=== PATIENT | female | born 2000 | race Caucasian/White ===

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

== ENCOUNTER 2018-02-26 15:16 | Inpatient (IN) | payer BC ==
[2018-02-26 16:42] VITALS: BMI 23.8
--- NOTE | 2018-02-26 21:07 | HP ---
COWS - Scale Resting Pulse: 0= [place] 80 or Below Sweatin=Flushed/Facial Moisture Restless Observation: 1= Difficult to Sit Still Pupil Size: 1= Pupils >than Normal Bone or Joint Aches: 4=Acute Joint/Muscle Pain Runny Nose/ Eye Tearin= None GI Upset > 30mins: 1= Stomach Cramp Tremor Observation: 2= Slight Tremor Visible Yawning Observation: 0= None Anxiety or Irritability: 4=Extreme Anxiety Goose Flesh Skin: 0=Smooth Skin COWS Score: [address] 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 Patient has been in previous detox and reports insignificant period of sobriety. She reports medical history of anemia,chlamydia, anxiety and depression. Denies suicide attempt and suicidal ideation at this time. Exam Limitations: No Limitations - Ebola screening Have you traveled outside of the country in the last 21 days: No Have you had contact with anyone from an Ebola affected area: No Have you been sick,other than usual withdrawal symptoms: No Do you have a fever: No - Review of Systems Constitutional: Chills, Malaise, Night Sweats, Changes in sleep EENT: reports: No Symptoms Reported Respiratory: reports: No Symptoms reported Cardiac: reports: No Symptoms Reported GI: reports: Nausea, Poor Appetite, Poor Fluid Intake, Abdominal cramping : reports: No Symptoms Reported Musculoskeletal: reports: Back Pain, Muscle Pain Integumentary: reports: Dryness Neuro: reports: Tingling, Tremors Endocrine: reports: No Symptoms Reported Hematology: reports: Anemia Psychiatric: reports: Orientated x3, Anxious, Depressed Other Systems: Reviewed and Negative Patient History - Patient Medical History Hx Anemia: Yes (Not on medication) Hx Asthma: No Hx Chronic Obstructive Pulmonary Disease (COPD): No Hx Cancer: No Hx Cardiac Disorders: No Hx Congestive Heart Failure: No Hx Hypertension: No Hx Hypercholesterolemia: No Hx Pacemaker: No HX Cerebrovascular Accident: No Hx Seizures: No Hx Dementia: No Hx Diabetes: No Hx Gastrointestinal Disorders: No Hx Liver Disease: No Hx Genitourinary Disorders: No Hx Sexually Transmitted Disorders: No Hx Renal Disease (ESRD): No Hx Thyroid Disease: No Hx Human Immunodeficiency Virus (HIV): No Hx Hepatitis C: No Hx Depression: Yes (Not on medication) Hx Suicide Attempt: No (Denies suicide attempt or suicidal ideation at this time ) Hx Bipolar Disorder: No Hx Schizophrenia: No Other Medical History: Anxiety - Not on medication - Patient Surgical History Past Surgical History: No Hx Neurologic Surgery: No Hx Cataract Extraction: No Hx Cardiac Surgery: No Hx Lung Surgery: No Hx Breast Surgery: No Hx Breast Biopsy: No Hx Abdominal Surgery: No Hx Appendectomy: No Hx Cholecystectomy: No Hx Genitourinary Surgery: No Hx Section: No Hx Orthopedic Surgery: No Hx Hysterectomy: No Anesthesia Reaction: No - PPD History Previous Implant?: Yes Documented Results: Negative w/proof Date: 01/05/17 Results: 0mm PPD to be Administered?: Yes - Reproductive History Patient is a Female of Child Bearing Age (11 -55 yrs old): Yes Last Menstrual Period: 06/13/17 LMP comment: On Norplant control injection Patient : No - Smoking Cessation Smoking history: Current every day smoker Have you smoked in the past 12 months: Yes Aproximately how many cigarettes per day: 10 Cigars Per Day: 0 Hx Chewing Tobacco Use: No Initiated information on smoking cessation: Yes 'Breaking Loose' booklet given: 02/26/18 - Substance & Tx. History Hx Alcohol Use: No Hx Substance Use: Yes Substance Use Type: Heroin Hx Substance Use Treatment: Yes ([facility]) - Substances Abused Heroin Route: Inhalation Frequency: Daily Amount used: 6 bags Age of first use: 15 Date of Last Use: 02/26/18 Family Disease History - Family Disease History Family Disease History: [place]: Grandparent (dementia), Respiratory: Sister (Asthma) , Other: Grandparent, Father (alive), Mother (alive and well) Admission Physical Exam BHS - Vital Signs Vital Signs: Vital Signs - 24 hr 02/26/18 16:41 Temperature 97.8 F Pulse Rate 78 Respiratory 18 Rate Blood Pressure 115/66 - Physical General Appearance: Yes: Moderate Distress HEENTM: Yes: EOMI, Normal ENT Inspection, Normal Voice, GINO Respiratory: Yes: Lungs Clear, Normal Breath Sounds, No Respiratory Distress Neck: Yes: Supple Breast: Yes: Breast Exam Deferred Cardiology: Yes: Regular Rhythm, Regular Rate, S1, S2 Abdominal: Yes: Normal Bowel Sounds, Soft Genitourinary: Yes: Within Normal Limits Back: Yes: Normal Inspection Musculoskeletal: Yes: Back pain, Muscle Pain Extremities: Yes: Tremors Neurological: Yes: Alert, Normal Mood/Affect Lymphatic: Yes: Within Normal Limits - Diagnostic (1) Dehydration Current Visit: Yes Status: Chronic (2) Opioid dependence with withdrawal Current Visit: Yes Status: Chronic (3) Anemia Current Visit: Yes Status: Chronic Qualifiers: Anemia type: unspecified type Qualified Code(s): D64.9 - Anemia, unspecified (4) Depression (emotion) Current Visit: Yes Status: Chronic Qualifiers: Depression Type: dysthymia Qualified Code(s): F34.1 - Dysthymic disorder (5) Nicotine dependence Current Visit: Yes Status: Chronic Qualifiers: Nicotine product type: cigarettes Substance use status: uncomplicated Qualified Code(s): F17.210 - Nicotine dependence, cigarettes, uncomplicated (6) Anxiety disorder Current Visit: Yes Status: Chronic Comment: Self reports. Cleared for Admission [facility] - Detox or Rehab [facility] Level of Care: Medically Managed Detox Regimen/Protocol: Methadone [facility] Breath Alcohol Content Breath Alcohol Content: 0 Urine Pregancy Test - Result Urine Test Results: Negative- NO Line Present Urine Drug Screen - Results Drug Screen Negative: No Urine Drug Screen Results: OPI-Opiates
[2018-02-26] MEDS ORDERED: MAGNESIUM CITRATE 300 ML BOTTLE PO PRN (21:14)
[2018-02-26] MEDS ORDERED: METHADONE HCL 10 MG TABLET (FOR DETOX USE ONLY) PO ONE ×2 (21:14→23:00)
[2018-02-26] MEDS ORDERED: IBUPROFEN 400 MG TABLET (FP) PO PRN (21:14)
[2018-02-26] MEDS ORDERED: LOPERAMIDE HCL 2 MG CAPSULE PO PRN (21:14)
[2018-02-26] MEDS ORDERED: P-EPHED 60MG/TRIPROLIDI 2.5MG TABLET PO PRN (21:14)
[2018-02-26] MEDS ORDERED: MAG HYDROX/AL HYDROX/SIMETH 30 ML UNIT-DOSE CUP PO PRN (21:14)
[2018-02-26] MEDS ORDERED: MENTHOL/PHENOL 1 EACH UD MM PRN (21:14)
[2018-02-26] MEDS ORDERED: NICOTINE POLACRILEX 2 MG GUM BC PRN (21:14)
[2018-02-26] MEDS ORDERED: guaiFENesin/D-METHORPHAN HB 10 ML UNIT-DOSE CUPS PO PRN (21:14)
[2018-02-26] MEDS ORDERED: MAGNESIUM HYDROX 2400MG/30ML ORAL SUSPENSION 30 ML CUP PO PRN (21:14)
[2018-02-26] MEDS ORDERED: ACETAMINOPHEN 325 MG TABLET (FP) PO PRN (21:18)
[2018-02-26] MEDS: diazePAM 5 MG TABLET PO PRN (22:00)
[2018-02-26] MEDS: THIAMINE HCL 100 MG TABLET (FP) PO SCH (22:00)
--- NOTE | 2018-02-27 09:22 | EKG ---
Test Reason : Blood Pressure : / mmHG Vent. Rate : 062 BPM Atrial Rate : 062 BPM P-R Int : 144 ms QRS Dur : 098 ms QT Int : 414 ms P-R-T Axes : 063 074 051 degrees QTc Int : 420 ms NORMAL SINUS RHYTHM NORMAL ECG WHEN COMPARED WITH ECG OF 10-DEC-2017 21:36, T WAVE INVERSION NO LONGER EVIDENT IN ANTERIOR LEADS Confirmed by ECHO JAMES, KARY ([id number]) on 02/27/2018 9:22:06 AM Referred By: Suni Morris Confirmed By:KARY DODGE MD
[2018-02-27] MEDS ORDERED: METHADONE HCL 10 MG TABLET (FOR DETOX USE ONLY) PO ONE (10:00)
[2018-02-27 10:15] LABS: HEMATOCRIT 35.4 % (32.4-45.2); HEMOGLOBIN 11.7 GM/dL (10.7-15.3); MCH 27.1 pg (25.7-33.7); MCHC 33.1 g/dl (32.0-36.0); MEAN CELL VOLUME 81.9 fl (80-96); PLATELET COUNT 311 K/MM3 (134-434); RBC 4.32 M/mm3 (3.60-5.2); RDW 13.8 % (11.6-15.6); WHITE BLOOD COUNT 7.4 K/mm3 (4.0-10.0)
[2018-02-27] MEDS: PRENATAL VITAMINS W/ FOLIC ACID TABLET (FP) PO SCH (10:33)
[2018-02-27] MEDS: NICOTINE 14 MG/24 HOURS TOPICAL PATCH TD SCH (10:34)
[2018-02-27 10:37] LABS: CHLORIDE 107 mmol/L (98-107); POTASSIUM 4.2 mmol/L (3.5-5.1); SODIUM 142 mmol/L (136-145)
[2018-02-27 11:02] LABS: ALBUMIN 3.1 g/dl (3.4-5.0); ALK PHOS 93 U/L (45-117); ANION GAP 7 (8-16); BILIRUBIN,TOTAL 0.9 mg/dL (0.2-1.0); BLOOD UREA NITROGEN 13 mg/dL (7-18); CALCIUM 8.7 mg/dL (8.5-10.1); CO2 28 mmol/L (21-32); CREATININE 0.7 mg/dL (0.55-1.02); GLUCOSE,RANDOM 79 mg/dL (74-106); SGOT/AST 11 U/L (15-37); SGPT/ALT 12 U/L (12-78); TOT PROT 6.4 g/dl (6.4-8.2)
--- NOTE | 2018-02-27 15:50 | PN ---
S COWS - Scale Resting Pulse: 1= [place] 81-100 Sweatin= Chills/Flushing Restless Observation: 3= Extraneous Movement Pupil Size: 1= Pupils >than Normal Bone or Joint Aches: 2= Severe Diffuse Aches Runny Nose/ Eye Tearin= Nasal Congestion GI Upset > 30mins: 2= Nausea/Diarrhea Tremor Observation of Outstretched Hands: 2= Slight Tremor Visible Yawning Observation: 1= 1-2x During Session Anxiety or Irritability: 2=Irritable/Anxious Goose Flesh Skin: 0=Smooth Skin COWS Score: 16 S Progress Note (SOAP) Subjective: ALERT,IRRITABLE,ANXIOUS,INTERRUPTED SLEEP,TREMOR,PAIN IN THE BODY AND BACK Objective: 02/27/18 15:47 Vital Signs Temperature 98.6 F 02/27/18 14:00 Pulse Rate 84 02/27/18 14:00 Respiratory Rate 18 02/27/18 14:00 Blood Pressure 98/58 02/27/18 14:00 O2 Sat by Pulse Oximetry (%) EKG NORMAL SINUS RHYTHM,NORMAL ECG PROLONG QT 414/420 NO CHEST PAIN,NO SOB,NO DIZZINESS Laboratory Last Values WBC 7.4 K/mm3 (4.0-10.0) 02/27/18 08:00 RBC 4.32 M/mm3 (3.60-5.2) 02/27/18 08:00 Hgb 11.7 GM/dL (10.7-15.3) 02/27/18 08:00 Hct 35.4 % (32.4-45.2) 02/27/18 08:00 MCV 81.9 fl (80-96) 02/27/18 08:00 MCH 27.1 pg (25.7-33.7) 02/27/18 08:00 MCHC 33.1 g/dl (32.0-36.0) 02/27/18 08:00 RDW 13.8 % (11.6-15.6) 02/27/18 08:00 Plt Count 311 K/MM3 (134-434) 02/27/18 08:00 MPV 8.0 fl (7.5-11.1) 02/27/18 08:00 Sodium 142 mmol/L (136-145) 02/27/18 08:00 Potassium 4.2 mmol/L (3.5-5.1) 02/27/18 08:00 Chloride 107 mmol/L (98-107) 02/27/18 08:00 Carbon Dioxide 28 mmol/L (21-32) 02/27/18 08:00 Anion Gap 7 (8-16) L 02/27/18 08:00 BUN 13 mg/dL (7-18) 02/27/18 08:00 Creatinine 0.7 mg/dL (0.55-1.02) 02/27/18 08:00 Creat Clearance w eGFR > 60 (>60) 02/27/18 08:00 Random Glucose 79 mg/dL (74-106) 02/27/18 08:00 Calcium 8.7 mg/dL (8.5-10.1) 02/27/18 08:00 Total Bilirubin 0.9 mg/dL (0.2-1.0) 02/27/18 08:00 AST 11 U/L (15-37) L 02/27/18 08:00 ALT 12 U/L (12-78) 02/27/18 08:00 Alkaline Phosphatase 93 U/L (45-117) 02/27/18 08:00 Total Protein 6.4 g/dl (6.4-8.2) 02/27/18 08:00 Albumin 3.1 g/dl (3.4-5.0) L 02/27/18 08:00 RPR Titer Nonreactive (NONREACTIVE) 02/27/18 08:00 HIV 1&2 Antibody Screen Negative 02/27/18 08:00 HIV P24 Antigen Negative 02/27/18 08:00 Assessment: 02/27/18 15:49 WITHDRAWAL SYMPTOM Plan: CONTINUE DETOX
[2018-02-27 16:56] LABS: URINE APPEARANCE CLEAR; URINE BILIRUBIN NEGATIVE (<2.0 mg/dL); URINE COLOR YELLOW; URINE GLUCOSE (UA) NEGATIVE (NEGATIVE); URINE KETONE NEGATIVE (NEGATIVE); URINE LEUK ESTERASE TRACE (NEGATIVE); URINE NITRITE NEGATIVE (NEGATIVE); URINE PROTEIN NEGATIVE (NEGATIVE)
[2018-02-27 17:03] LABS: EPI CELLS RARE /HPF (FEW); URINE BACTERIA RARE /hpf (NONE SEEN); URINE MUCUS RARE
--- NOTE | 2018-02-27 17:13 | CONSULT ---
[facility] Psychiatric Consult - Data Date of interview: 02/27/18 Admission source: [facility] Identifying data: Readmission to [facility] for this 17 y/o AA female seeking detox treatment on for heroin dependence.Patient is single without dependents,domiciled (lives with relatives),unemployed and assisted financially by family members. Substance Abuse History: Confirmed by patient in my interview.Details in current [facility] report : Smoking history: Current every day smoker. Have you smoked in the past 12 months: Yes. Aproximately how many cigarettes per day: 10. Cigars Per Day: 0. Hx Chewing Tobacco Use: No. Initiated information on smoking cessation: Yes. 'Breaking Loose' booklet given: 02/26/18. - Substance & Tx. History. Hx Alcohol Use: No. Hx Substance Use: Yes. Substance Use Type : Heroin. Hx Substance Use Treatment: Yes ([facility]). - Substances Abused. Heroin. Route: Inhalation. Frequency: Daily. Amount used: 6 bags. Age of first use: 15. Date of Last Use: 02/26/18 Medical History: Patient endorses good general health.Noted history of anemia. Psychiatric History: Patient shows a proclivity toward misleading clinicians with different versions of personal history.As evidence : to this literary writer, Ms Acosta denies any history of psychiatric hospitalizations ; she admits only to receiving outpatient psychiatric services at an unnamed clinic in the [place].Review of previous records at [facility] uncovers prior report of two psychiatric hospitalizations ([facility] + [facility]).As recently as 2017 (soldering machine operator Maira's note of 12/11/17).Patient is reportedly managed on a regimen of buspar 15 mg po bid + seroquel 100 mhg/ hs.Adherence remains questionable.Patient denies history of suicide attempts. Physical/Sexual Abuse/Trauma History: Not discused.Patient declined. Additional Comment: Urine Drug Screen Results: OPI-Opiates.Noted. Mental Status Exam - Mental Status Exam Alert and Oriented to: Time, Place, Person Cognitive Function: Good Patient Appearance: Well Groomed (appears stated age) Mood: Withdrawn, Apprehensive Affect: Mood Congruent Patient Behavior: Fatigued, Appropriate, Cooperative Speech Pattern: Clear, Appropriate Voice Loudness: Normal Thought Process: Intact, Goal Oriented Thought Disorder: Not Present Hallucinations: Denies Suicidal Ideation: Denies Homicidal Ideation: Denies Insight/Judgement: Poor Sleep: Poorly, Difficulty falling asleep Appetite: Good Muscle strength/Tone: Normal Gait/Station: Normal Psychiatric Findings - Problem List ([place] 1, 2,3) (1) Opioid dependence with withdrawal Current Visit: Yes Status: Chronic (2) Nicotine dependence Current Visit: Yes Status: Chronic Qualifiers: Nicotine product type: cigarettes Substance use status: uncomplicated Qualified Code(s): F17.210 - Nicotine dependence, cigarettes, uncomplicated (3) Drug-induced mood disorder Current Visit: Yes Status: Acute (4) Anxiety disorder Current Visit: Yes Status: Chronic (5) Insomnia Current Visit: Yes Status: Acute - Initial Treatment Plan Initial Treatment Plan: Records revisited.Psychoeducation.Sleep hygiene.Detoxification in effect.Medications resumed : buspar 10 mg po bid + seroquel 100 mg po hs.Side effects/benefits of both medications are discussed with the patient.Made aware, in particular, of the risk of metabolic syndrome, oversedation + falls and hypotension.Ms Acosta endorses the two drugs as well toterated and effective.Consent (verbal) given.Observation.
[2018-02-27] MEDS: diazePAM 5 MG TABLET PO PRN (17:17)
[2018-02-27] MEDS: MELATONIN 5 MG TABLETS PO PRN (22:15)
[2018-02-27] MEDS: THIAMINE HCL 100 MG TABLET (FP) PO SCH (22:15)
[2018-02-27] MEDS: QUEtiapine FUMARATE 100 MG TABLET (FP) PO SCH (22:15)
[2018-02-27] MEDS: busPIRone HCL 10 MG TABLET (FP) PO SCH (22:15)
[2018-02-28] MEDS ORDERED: METHADONE HCL 5 MG TABLET (FOR DETOX USE ONLY) PO ONE (10:00)
[2018-02-28] MEDS: PRENATAL VITAMINS W/ FOLIC ACID TABLET (FP) PO SCH (10:18)
[2018-02-28] MEDS: busPIRone HCL 10 MG TABLET (FP) PO SCH ×2 (10:18→22:18)
[2018-02-28] MEDS: diazePAM 5 MG TABLET PO PRN ×2 (10:19→22:19)
[2018-02-28] MEDS: NICOTINE 14 MG/24 HOURS TOPICAL PATCH TD SCH (10:20)
--- NOTE | 2018-02-28 16:53 | PN ---
[facility] COWS - Scale Resting Pulse: 0= IN 80 or Below Sweatin= Chills/Flushing Restless Observation: 3= Extraneous Movement Pupil Size: 1= Pupils >than Normal Bone or Joint Aches: 2= Severe Diffuse Aches Runny Nose/ Eye Tearin= Runny Nose/Eyes GI Upset > 30mins: 2= Nausea/Diarrhea Tremor Observation of Outstretched Hands: 2= Slight Tremor Visible Yawning Observation: 1= 1-2x During Session Anxiety or Irritability: 2=Irritable/Anxious Goose Flesh Skin: 0=Smooth Skin COWS Score: 16 S Progress Note (SOAP) Subjective: Chills, muscle spasm, interrupted sleep Objective: 02/28/18 16:51 Last Vital Signs Temp Pulse Resp BP Pulse Ox 98.1 F 69 16 100/59 02/28/18 14:00 02/28/18 14:00 02/28/18 14:00 02/28/18 14:00 Laboratory Tests 02/27/18 02/27/18 02/27/18 08:00 08:00 08:00 WBC 7.4 RBC 4.32 Hgb 11.7 Hct 35.4 MCV 81.9 MCH 27.1 MCHC 33.1 RDW 13.8 Plt Count 311 MPV 8.0 Sodium 142 Potassium 4.2 Chloride 107 Carbon Dioxide 28 Anion Gap 7 L BUN 13 Creatinine 0.7 Creat Clearance w eGFR > 60 Random Glucose 79 Calcium 8.7 Total Bilirubin 0.9 AST 11 L ALT 12 Alkaline Phosphatase 93 Total Protein 6.4 Albumin 3.1 L Urine Color Urine Appearance Urine pH Ur Specific [place] Urine Protein Urine Glucose (UA) Urine Ketones Urine Blood Urine Nitrite Urine Bilirubin Urine Urobilinogen Ur Leukocyte Esterase Urine WBC (Auto) Urine RBC (Auto) Ur Epithelial Cells Urine Bacteria Urine Mucus RPR Titer HIV 1&2 Antibody Screen Negative HIV P24 Antigen Negative 02/27/18 02/27/18 08:00 09:15 WBC RBC Hgb Hct MCV MCH MCHC RDW Plt Count MPV Sodium Potassium Chloride Carbon Dioxide Anion Gap BUN Creatinine Creat Clearance w eGFR Random Glucose Calcium Total Bilirubin AST ALT Alkaline Phosphatase Total Protein Albumin Urine Color Yellow Urine Appearance Clear Urine pH 8.0 D Ur Specific [place] 1.025 Urine Protein Negative Urine Glucose (UA) Negative Urine Ketones Negative Urine Blood Negative Urine Nitrite Negative Urine Bilirubin Negative Urine Urobilinogen 2.0 H Ur Leukocyte Esterase Trace Urine WBC (Auto) 2 Urine RBC (Auto) <1 Ur Epithelial Cells Rare Urine Bacteria Rare Urine Mucus Rare RPR Titer Nonreactive HIV 1&2 Antibody Screen HIV P24 Antigen Labs reviewed Assessment: 02/28/18 16:52 Withdrawal symptoms Plan: Continue detox Encourage PO hydration (water)
[2018-02-28] MEDS: QUEtiapine FUMARATE 100 MG TABLET (FP) PO SCH (22:18)
[2018-02-28] MEDS: THIAMINE HCL 100 MG TABLET (FP) PO SCH (22:18)
[2018-02-28] MEDS: MELATONIN 5 MG TABLETS PO PRN (22:20)
[2018-03-01] MEDS ORDERED: METHADONE HCL 5 MG TABLET (FOR DETOX USE ONLY) PO ONE (10:00)
[2018-03-01] MEDS: PRENATAL VITAMINS W/ FOLIC ACID TABLET (FP) PO SCH (11:05)
[2018-03-01] MEDS: busPIRone HCL 10 MG TABLET (FP) PO SCH ×2 (11:05→22:16)
[2018-03-01] MEDS: NICOTINE 14 MG/24 HOURS TOPICAL PATCH TD SCH (11:06)
[2018-03-01] MEDS: diazePAM 5 MG TABLET PO PRN ×2 (11:06→18:54)
--- NOTE | 2018-03-01 12:16 | PN ---
[facility] Progress Note (SOAP) Subjective: joint pain body ache sweat tremor trouble sleep at night Objective: 03/01/18 12:15 Vital Signs Temperature 98.4 F 03/01/18 10:22 Pulse Rate 105 H 03/01/18 10:22 Respiratory Rate 18 03/01/18 10:22 Blood Pressure 102/58 03/01/18 10:22 O2 Sat by Pulse Oximetry (%) Laboratory Last Values WBC 7.4 K/mm3 (4.0-10.0) 02/27/18 08:00 RBC 4.32 M/mm3 (3.60-5.2) 02/27/18 08:00 Hgb 11.7 GM/dL (10.7-15.3) 02/27/18 08:00 Hct 35.4 % (32.4-45.2) 02/27/18 08:00 MCV 81.9 fl (80-96) 02/27/18 08:00 MCH 27.1 pg (25.7-33.7) 02/27/18 08:00 MCHC 33.1 g/dl (32.0-36.0) 02/27/18 08:00 RDW 13.8 % (11.6-15.6) 02/27/18 08:00 Plt Count 311 K/MM3 (134-434) 02/27/18 08:00 MPV 8.0 fl (7.5-11.1) 02/27/18 08:00 Sodium 142 mmol/L (136-145) 02/27/18 08:00 Potassium 4.2 mmol/L (3.5-5.1) 02/27/18 08:00 Chloride 107 mmol/L (98-107) 02/27/18 08:00 Carbon Dioxide 28 mmol/L (21-32) 02/27/18 08:00 Anion Gap 7 (8-16) L 02/27/18 08:00 BUN 13 mg/dL (7-18) 02/27/18 08:00 Creatinine 0.7 mg/dL (0.55-1.02) 02/27/18 08:00 Creat Clearance w eGFR > 60 (>60) 02/27/18 08:00 Random Glucose 79 mg/dL (74-106) 02/27/18 08:00 Calcium 8.7 mg/dL (8.5-10.1) 02/27/18 08:00 Total Bilirubin 0.9 mg/dL (0.2-1.0) 02/27/18 08:00 AST 11 U/L (15-37) L 02/27/18 08:00 ALT 12 U/L (12-78) 02/27/18 08:00 Alkaline Phosphatase 93 U/L (45-117) 02/27/18 08:00 Total Protein 6.4 g/dl (6.4-8.2) 02/27/18 08:00 Albumin 3.1 g/dl (3.4-5.0) L 02/27/18 08:00 Urine Color Yellow 02/27/18 09:15 Urine Appearance Clear 02/27/18 09:15 Urine pH 8.0 (5.0-8.0) D 02/27/18 09:15 Ur Specific [place] 1.025 (1.001-1.035) 02/27/18 09:15 Urine Protein Negative (NEGATIVE) 02/27/18 09:15 Urine Glucose (UA) Negative (NEGATIVE) 02/27/18 09:15 Urine Ketones Negative (NEGATIVE) 02/27/18 09:15 Urine Blood Negative (NEGATIVE) 02/27/18 09:15 Urine Nitrite Negative (NEGATIVE) 02/27/18 09:15 Urine Bilirubin Negative (<2.0 mg/dL) 02/27/18 09:15 Urine Urobilinogen 2.0 mg/dL (0.2-1.0) H 02/27/18 09:15 Ur Leukocyte Esterase Trace (NEGATIVE) 02/27/18 09:15 Urine WBC (Auto) 2 /hpf (3-5) 02/27/18 09:15 Urine RBC (Auto) <1 /hpf (0-3) 02/27/18 09:15 Ur Epithelial Cells Rare /HPF (FEW) 02/27/18 09:15 Urine Bacteria Rare /hpf (NONE SEEN) 02/27/18 09:15 Urine Mucus Rare 02/27/18 09:15 RPR Titer Nonreactive (NONREACTIVE) 02/27/18 08:00 HIV 1&2 Antibody Screen Negative 02/27/18 08:00 HIV P24 Antigen Negative 02/27/18 08:00 lab noted Assessment: 03/01/18 12:16 withdrawal sx Plan: continue detox
--- NOTE | 2018-03-01 15:54 | PN ---
Psychiatric Progress Note Vital Signs: Vital Signs Period Temp Pulse Resp BP Sys/[place] Pulse Ox Last 24 Hr 97 F-98.4 F 58-111 16-18 98-111/57-72 Date of Session: 03/01/18 Chief Complaint:: Insomnia HPI: Patient reports insomnia, reports taking Ambien 10mg po qhs prior to admission Current Medications: Active Medications Generic Name Dose Route Start Last Admin Trade Name Freq PRN Reason Stop Dose Admin Acetaminophen 650 mg 02/26/18 21:18 Tylenol - PO Q4H PRN FEVER Al Hydroxide/Mg Hydroxide 30 ml 02/26/18 21:14 Mylanta Oral Suspension - PO Q6H PRN DYSPEPSIA Buspirone HCl 10 mg 02/27/18 22:00 03/01/18 11:05 Buspar - PO 10 mg BID HOLLY Administration Cyclobenzaprine HCl 10 mg 02/28/18 11:22 Flexeril - PO TID PRN MUSCLE SPASMS Diazepam 10 mg 02/26/18 21:14 03/01/18 11:06 Valium - PO 03/01/18 21:13 10 mg Q4H PRN Administration WITHDRAWAL(CONT SUBST) Eucalyptus/Menthol/Phenol/Sorbitol 1 each 02/26/18 21:14 Cepastat Lozenge - MM Q4H PRN SORE THROAT Guaifenesin 10 ml 02/26/18 21:14 Robitussin Dm - PO Q6H PRN COUGH Ibuprofen 400 mg 02/26/18 21:14 Motrin - PO Q6H PRN PAIN LEVEL 4-6 Loperamide HCl 4 mg 02/26/18 21:14 Imodium - PO Q6H PRN DIARRHEA Magnesium Citrate 300 ml 02/26/18 21:14 Citroma - PO Q48H PRN CONSTIPATION Magnesium Hydroxide 30 ml 02/26/18 21:14 Milk Of Magnesia - PO DAILY PRN CONSTIPATION Melatonin 5 mg 02/26/18 22:00 02/28/18 22:20 Melatonin PO 5 mg HS PRN Administration INSOMNIA Methadone HCl 5 mg 03/03/18 06:00 Dolophine - PO 03/03/18 06:01 ONCE@0600 ONE Methadone HCl 10 mg 03/02/18 10:00 Dolophine - PO 03/02/18 10:01 ONCE ONE Nicotine 14 mg 02/27/18 10:00 03/01/18 11:06 Nicoderm Patch - TD Not Given DAILY HOLLY Nicotine Polacrilex 2 mg 02/26/18 21:14 Nicorette Gum - BC Q2H PRN NICOTINE REPLACEMENT RX Multivit/Folic Acid/Iron 1 tab 02/27/18 10:00 03/01/18 11:05 Vitamins (Sjr) - PO 1 tab DAILY HOLLY Administration Pseudoephedrine/Triprolidine 1 combo 02/26/18 21:14 Actifed - PO TID PRN NASAL CONGESTION Quetiapine Fumarate 100 mg 02/27/18 22:00 02/28/18 22:18 Seroquel - PO 100 mg HS HOLLY Administration Thiamine HCl 100 mg 02/26/18 22:00 02/28/18 22:18 Vitamin B1 - PO 100 mg HS HOLLY Administration Provider note:: Ambien 10mg po qgs order done Mental Status Exam - Mental Status Exam Alert and Oriented to: Person Cognitive Function: Fair Patient Appearance: Well Groomed Mood: Apprehensive Affect: Mood Congruent Patient Behavior: Cooperative Speech Pattern: Appropriate Voice Loudness: Normal Thought Process: Goal Oriented Thought Disorder: Being Controlled Hallucinations: Denies Suicidal Ideation: Denies Homicidal Ideation: Denies Insight/Judgement: Fair Sleep: Difficulty falling asleep Appetite: Fair Muscle strength/Tone: Normal Gait/Station: Normal Additional Comments: Ambien 10mg po qhs Psychiatric Treatment Plan - Problem List (1) Drug-induced mood disorder Current Visit: Yes (2) Opioid dependence with withdrawal Current Visit: Yes (3) Anxiety disorder Current Visit: Yes (4) Nicotine dependence Current Visit: Yes Qualifiers: Nicotine product type: cigarettes Substance use status: uncomplicated Qualified Code(s): F17.210 - Nicotine dependence, cigarettes, uncomplicated (5) Cannabis dependence Current Visit: No (6) Drug-induced mood disorder Current Visit: No (7) Drug-induced mood disorder Current Visit: No (8) Opioid dependence, uncomplicated Current Visit: No (9) Sedative, hypnotic or anxiolytic dependence, uncomplicated Current Visit: No (10) Substance-induced sleep disorder Current Visit: No (11) Substance-induced sleep disorder Current Visit: No (12) Alcohol abuse Current Visit: No (13) Opiate abuse, episodic Current Visit: No (14) Substance-induced anxiety disorder Current Visit: No Initial treatment plan: Ambien 10mg po qhs
[2018-03-01] MEDS: QUEtiapine FUMARATE 100 MG TABLET (FP) PO SCH (22:16)
[2018-03-01] MEDS: CYCLOBENZAPRINE HCL 10 MG TABLET (FP) PO PRN (22:16)
[2018-03-01] MEDS: THIAMINE HCL 100 MG TABLET (FP) PO SCH (22:16)
[2018-03-01] MEDS: ZOLPIDEM TARTRATE 5 MG TABLET PO PRN (22:19)
[2018-03-02] MEDS ORDERED: METHADONE HCL 10 MG TABLET (FOR DETOX USE ONLY) PO ONE (10:00)
[2018-03-02] MEDS: busPIRone HCL 10 MG TABLET (FP) PO SCH ×2 (10:24→22:08)
[2018-03-02] MEDS: PRENATAL VITAMINS W/ FOLIC ACID TABLET (FP) PO SCH (10:25)
[2018-03-02] MEDS: NICOTINE 14 MG/24 HOURS TOPICAL PATCH TD SCH (10:25)
--- NOTE | 2018-03-02 12:11 | PN ---
S Progress Note (SOAP) Subjective: feeling better less sweat no tremor denies pain tolerated food and fluid well Objective: 03/02/18 12:10 Vital Signs Temperature 98.1 F 03/02/18 09:01 Pulse Rate 91 H 03/02/18 09:01 Respiratory Rate 18 03/02/18 09:01 Blood Pressure 110/54 03/02/18 09:01 O2 Sat by Pulse Oximetry (%) Laboratory Last Values WBC 7.4 K/mm3 (4.0-10.0) 02/27/18 08:00 RBC 4.32 M/mm3 (3.60-5.2) 02/27/18 08:00 Hgb 11.7 GM/dL (10.7-15.3) 02/27/18 08:00 Hct 35.4 % (32.4-45.2) 02/27/18 08:00 MCV 81.9 fl (80-96) 02/27/18 08:00 MCH 27.1 pg (25.7-33.7) 02/27/18 08:00 MCHC 33.1 g/dl (32.0-36.0) 02/27/18 08:00 RDW 13.8 % (11.6-15.6) 02/27/18 08:00 Plt Count 311 K/MM3 (134-434) 02/27/18 08:00 MPV 8.0 fl (7.5-11.1) 02/27/18 08:00 Sodium 142 mmol/L (136-145) 02/27/18 08:00 Potassium 4.2 mmol/L (3.5-5.1) 02/27/18 08:00 Chloride 107 mmol/L (98-107) 02/27/18 08:00 Carbon Dioxide 28 mmol/L (21-32) 02/27/18 08:00 Anion Gap 7 (8-16) L 02/27/18 08:00 BUN 13 mg/dL (7-18) 02/27/18 08:00 Creatinine 0.7 mg/dL (0.55-1.02) 02/27/18 08:00 Creat Clearance w eGFR > 60 (>60) 02/27/18 08:00 Random Glucose 79 mg/dL (74-106) 02/27/18 08:00 Calcium 8.7 mg/dL (8.5-10.1) 02/27/18 08:00 Total Bilirubin 0.9 mg/dL (0.2-1.0) 02/27/18 08:00 AST 11 U/L (15-37) L 02/27/18 08:00 ALT 12 U/L (12-78) 02/27/18 08:00 Alkaline Phosphatase 93 U/L (45-117) 02/27/18 08:00 Total Protein 6.4 g/dl (6.4-8.2) 02/27/18 08:00 Albumin 3.1 g/dl (3.4-5.0) L 02/27/18 08:00 Urine Color Yellow 02/27/18 09:15 Urine Appearance Clear 02/27/18 09:15 Urine pH 8.0 (5.0-8.0) D 02/27/18 09:15 Ur Specific [place] 1.025 (1.001-1.035) 02/27/18 09:15 Urine Protein Negative (NEGATIVE) 02/27/18 09:15 Urine Glucose (UA) Negative (NEGATIVE) 02/27/18 09:15 Urine Ketones Negative (NEGATIVE) 02/27/18 09:15 Urine Blood Negative (NEGATIVE) 02/27/18 09:15 Urine Nitrite Negative (NEGATIVE) 02/27/18 09:15 Urine Bilirubin Negative (<2.0 mg/dL) 02/27/18 09:15 Urine Urobilinogen 2.0 mg/dL (0.2-1.0) H 02/27/18 09:15 Ur Leukocyte Esterase Trace (NEGATIVE) 02/27/18 09:15 Urine WBC (Auto) 2 /hpf (3-5) 02/27/18 09:15 Urine RBC (Auto) <1 /hpf (0-3) 02/27/18 09:15 Ur Epithelial Cells Rare /HPF (FEW) 02/27/18 09:15 Urine Bacteria Rare /hpf (NONE SEEN) 02/27/18 09:15 Urine Mucus Rare 02/27/18 09:15 RPR Titer Nonreactive (NONREACTIVE) 02/27/18 08:00 HIV 1&2 Antibody Screen Negative 02/27/18 08:00 HIV P24 Antigen Negative 02/27/18 08:00 lab noted Assessment: 03/02/18 12:11 mild withdrawal sx Plan: medically supervised detox
[2018-03-02] MEDS: QUEtiapine FUMARATE 100 MG TABLET (FP) PO SCH (22:08)
[2018-03-02] MEDS: CYCLOBENZAPRINE HCL 10 MG TABLET (FP) PO PRN (22:08)
[2018-03-02] MEDS: ZOLPIDEM TARTRATE 5 MG TABLET PO PRN (22:08)
[2018-03-02] MEDS: THIAMINE HCL 100 MG TABLET (FP) PO SCH (22:08)
[2018-03-03] MEDS ORDERED: METHADONE HCL 5 MG TABLET (FOR DETOX USE ONLY) PO ONE (06:00)
[2018-03-03 06:35] VITALS: BP 109/60; PULSE 97; TEMP 98.6
--- NOTE | 2018-03-03 08:46 | DS ---
[facility] Detox Discharge Summary Admission Date: 02/26/18 Discharge Date: 03/03/18 - History Present History: Opioid Dependence Additional Comments: 17 years old female admitted on 02/26/18 for opioid withdrawal sx completed detox regimen tolerated well denies opioid withdrawal sx alert oriented x 3 no acute distress agrees urgent care community clinic for mental and physical and addiction issues patient determines to maintain sober - Physical Exam Results Vital Signs: Vital Signs Temperature 98.6 F 03/03/18 06:00 Pulse Rate 97 H 03/03/18 06:00 Respiratory Rate 16 03/03/18 06:00 Blood Pressure 109/60 03/03/18 06:00 O2 Sat by Pulse Oximetry (%) Pertinent Admission Physical Exam Findings: withdrawal sx Vital Signs Temperature 98.6 F 03/03/18 06:00 Pulse Rate 97 H 03/03/18 06:00 Respiratory Rate 16 03/03/18 06:00 Blood Pressure 109/60 03/03/18 06:00 O2 Sat by Pulse Oximetry (%) Laboratory Last Values WBC 7.4 K/mm3 (4.0-10.0) 02/27/18 08:00 RBC 4.32 M/mm3 (3.60-5.2) 02/27/18 08:00 Hgb 11.7 GM/dL (10.7-15.3) 02/27/18 08:00 Hct 35.4 % (32.4-45.2) 02/27/18 08:00 MCV 81.9 fl (80-96) 02/27/18 08:00 MCH 27.1 pg (25.7-33.7) 02/27/18 08:00 MCHC 33.1 g/dl (32.0-36.0) 02/27/18 08:00 RDW 13.8 % (11.6-15.6) 02/27/18 08:00 Plt Count 311 K/MM3 (134-434) 02/27/18 08:00 MPV 8.0 fl (7.5-11.1) 02/27/18 08:00 Sodium 142 mmol/L (136-145) 02/27/18 08:00 Potassium 4.2 mmol/L (3.5-5.1) 02/27/18 08:00 Chloride 107 mmol/L (98-107) 02/27/18 08:00 Carbon Dioxide 28 mmol/L (21-32) 02/27/18 08:00 Anion Gap 7 (8-16) L 02/27/18 08:00 BUN 13 mg/dL (7-18) 02/27/18 08:00 Creatinine 0.7 mg/dL (0.55-1.02) 02/27/18 08:00 Creat Clearance w eGFR > 60 (>60) 02/27/18 08:00 Random Glucose 79 mg/dL (74-106) 02/27/18 08:00 Calcium 8.7 mg/dL (8.5-10.1) 02/27/18 08:00 Total Bilirubin 0.9 mg/dL (0.2-1.0) 02/27/18 08:00 AST 11 U/L (15-37) L 02/27/18 08:00 ALT 12 U/L (12-78) 02/27/18 08:00 Alkaline Phosphatase 93 U/L (45-117) 02/27/18 08:00 Total Protein 6.4 g/dl (6.4-8.2) 02/27/18 08:00 Albumin 3.1 g/dl (3.4-5.0) L 02/27/18 08:00 Urine Color Yellow 02/27/18 09:15 Urine Appearance Clear 02/27/18 09:15 Urine pH 8.0 (5.0-8.0) D 02/27/18 09:15 Ur Specific [place] 1.025 (1.001-1.035) 02/27/18 09:15 Urine Protein Negative (NEGATIVE) 02/27/18 09:15 Urine Glucose (UA) Negative (NEGATIVE) 02/27/18 09:15 Urine Ketones Negative (NEGATIVE) 02/27/18 09:15 Urine Blood Negative (NEGATIVE) 02/27/18 09:15 Urine Nitrite Negative (NEGATIVE) 02/27/18 09:15 Urine Bilirubin Negative (<2.0 mg/dL) 02/27/18 09:15 Urine Urobilinogen 2.0 mg/dL (0.2-1.0) H 02/27/18 09:15 Ur Leukocyte Esterase Trace (NEGATIVE) 02/27/18 09:15 Urine WBC (Auto) 2 /hpf (3-5) 02/27/18 09:15 Urine RBC (Auto) <1 /hpf (0-3) 02/27/18 09:15 Ur Epithelial Cells Rare /HPF (FEW) 02/27/18 09:15 Urine Bacteria Rare /hpf (NONE SEEN) 02/27/18 09:15 Urine Mucus Rare 02/27/18 09:15 RPR Titer Nonreactive (NONREACTIVE) 02/27/18 08:00 HIV 1&2 Antibody Screen Negative 02/27/18 08:00 HIV P24 Antigen Negative 02/27/18 08:00 lab noted - Treatment Hospital Course: Detox Protocol Followed, Detoxed Safely, Responded well, Discharged Condition Good, Rehab Referral Accepted Patient has Accepted a Rehab Referral to: urgent care community clinic - Medication Discharge Medications: Ambulatory Orders Eszopiclone [Lunesta -] 10 mg PO HS 01/03/17 Zolpidem Tartrate [Ambien] 10 mg PO PRN PRN #14 tablet MDD 10 09/09/17 Buspirone HCl [Buspar -] 15 mg PO BID 12/10/17 Buspirone HCl [Buspar -] 15 mg PO BID #60 tablet 12/15/17 Quetiapine Fumarate [Seroquel] 100 mg PO HS #30 tablet 03/01/18 - Diagnosis (1) Opioid dependence with withdrawal Current Visit: Yes Status: Acute (2) Nicotine dependence Current Visit: Yes Status: Acute Qualifiers: Nicotine product type: cigarettes Substance use status: in withdrawal Qualified Code(s): F17.213 - Nicotine dependence, cigarettes, with withdrawal - AMA Did Patient Leave Against Medical Advice: No
== END 2018-03-03 09:03 | disposition home or self-care (01) | DRG 897 ==
LOC: YASAS 15:16 → Y6N 19:38
PROVIDERS: ADMIT Surgery; ATTEND Surgery
PROC: HZ2ZZZZ Detoxification Services for Substance Abuse Treatment (ICD-10-PCS; principal; 2018-02-26)
DX: F11.23 Opioid dependence with withdrawal (principal); F19.282 Other psychoactive substance dependence with psychoactive substance-induced sleep disorder; F19.280 Other psychoactive substance dependence with psychoactive substance-induced anxiety disorder; F13.230 Sedative, hypnotic or anxiolytic dependence with withdrawal, uncomplicated; F12.20 Cannabis dependence, uncomplicated; F17.210 Nicotine dependence, cigarettes, uncomplicated; F19.24 Other psychoactive substance dependence with psychoactive substance-induced mood disorder; F34.1 Dysthymic disorder; F41.9 Anxiety disorder, unspecified; E86.0 Dehydration; F64.9 Gender identity disorder, unspecified; G47.00 Insomnia, unspecified; I45.81 Long QT syndrome
CPT/HCPCS: 36415; 80053; 81003; 81015; 85027; 86593; 87389; 93005; 93010

== ENCOUNTER 2018-03-26 13:26 | Inpatient (IN) | payer BC ==
[2018-03-26 13:57] VITALS: BMI 23.0
--- NOTE | 2018-03-26 16:57 | HP ---
COWS - Scale Resting Pulse: 1= [place] 81-100 Sweatin= Chills/Flushing Restless Observation: 0= Sits Still Pupil Size: 0= Normal to Room Light Bone or Joint Aches: 2= Severe Diffuse Aches Runny Nose/ Eye Tearin= Runny Nose/Eyes GI Upset > 30mins: 2= Nausea/Diarrhea Tremor Observation: 1= Tremor [place], Not Seen Yawning Observation: 1= 1-2x During Session Anxiety or Irritability: 2=Irritable/Anxious Goose Flesh Skin: 0=Smooth Skin COWS Score: 12 Admission [facility] Chief Complaint: Heroin withdrawal symptoms. Allergies/Adverse Reactions: Allergies Allergy/AdvReac Type Severity Reaction Status Date / Time No Known Allergies Allergy Verified 03/26/18 15:51 History of Present Illness: Patient presents with heroin withdrawal symptoms. Completed detox last month but relapse after one week. Pt would like to complete detox and rehab this admission. States she started sniffing at age 16. Uses 5-6 bags daily. Also smokes Marijuana since age 12 and smokes 1-2 blunts weekly. Denies taking any benzodiazepines, both prescribed and non-prescribed. Patient has hx of anemia and depression. Denies SI/HI and suicide attempts. Last time patient smoked and sniffed heroin was yesterday. - Ebola screening Have you traveled outside of the country in the last 21 days: No (N) Have you had contact with anyone from an Ebola affected area: No Have you been sick,other than usual withdrawal symptoms: No Do you have a fever: No - Review of Systems Constitutional: Chills, Night Sweats EENT: reports: Tearing, Nose Congestion Respiratory: reports: No Symptoms reported Cardiac: reports: No Symptoms Reported GI: reports: Diarrhea, Nausea, Poor Fluid Intake, Abdominal cramping : reports: No Symptoms Reported Musculoskeletal: reports: Back Pain, Muscle Pain Integumentary: reports: Sweating Neuro: reports: Headache, Tremors Endocrine: reports: No Symptoms Reported Hematology: reports: No Symptoms Reported Psychiatric: reports: Orientated x3, Anxious, Depressed Patient History - Patient Medical History Hx Anemia: Yes (Not on medication) Hx Asthma: No Hx Chronic Obstructive Pulmonary Disease (COPD): No Hx Cancer: No Hx Cardiac Disorders: No Hx Congestive Heart Failure: No Hx Hypertension: No Hx Hypercholesterolemia: No Hx Pacemaker: No HX Cerebrovascular Accident: No Hx Seizures: No Hx Dementia: No Hx Diabetes: No Hx Gastrointestinal Disorders: No Hx Liver Disease: No Hx Genitourinary Disorders: No Hx Sexually Transmitted Disorders: No Hx Renal Disease (ESRD): No Hx Thyroid Disease: No Hx Human Immunodeficiency Virus (HIV): No Hx Hepatitis C: No Hx Depression: Yes (Not on medication) Hx Suicide Attempt: No (Denies suicide attempt or suicidal ideation at this time ) Hx Bipolar Disorder: No Hx Schizophrenia: No - Patient Surgical History Past Surgical History: No Hx Neurologic Surgery: No Hx Cataract Extraction: No Hx Cardiac Surgery: No Hx Lung Surgery: No Hx Breast Surgery: No Hx Breast Biopsy: No Hx Abdominal Surgery: No Hx Appendectomy: No Hx Cholecystectomy: No Hx Genitourinary Surgery: No Hx Section: No Hx Orthopedic Surgery: No Hx Hysterectomy: No Anesthesia Reaction: No - PPD History Previous Implant?: Yes Documented Results: Negative w/proof Date: 02/28/18 Results: 0MM PPD to be Administered?: No - Reproductive History Last Menstrual Period: 06/13/17 Patient : No - Smoking Cessation Smoking history: Current every day smoker Have you smoked in the past 12 months: Yes Aproximately how many cigarettes per day: 10 Cigars Per Day: 0 Hx Chewing Tobacco Use: No Initiated information on smoking cessation: Yes 'Breaking Loose' booklet given: 03/26/18 - Substances Abused Heroin Route: Inhalation Frequency: Daily Amount used: 6 BAGS Age of first use: 15 Date of Last Use: 03/26/18 THC Frequency: 3-6 times per week Amount used: 1 BLUNT Age of first use: 12 Date of Last Use: 03/25/18 Family Disease History - Family Disease History Family Disease History: CA: Grandparent (dementia), Respiratory: Sister (Asthma) , Other: Grandparent, Father (alive), Mother (alive and well) Admission Physical Exam BHS - Vital Signs Vital Signs: Vital Signs - 24 hr 03/26/18 13:55 Temperature 99.4 F Pulse Rate 86 Respiratory 18 Rate Blood Pressure 112/61 - Physical General Appearance: Yes: No Apparent Distress, Nourished, Appropriately Dressed , Tremorous, Sweating, Anxious HEENTM: Yes: EOMI, Hearing grossly Normal, Normal ENT Inspection, Normocephalic , Normal Voice, GINO, Pharynx Normal, Nasal Congestion Respiratory: Yes: Chest Non-Tender, Lungs Clear, Normal Breath Sounds, No Respiratory Distress, No Accessory Muscle Use Neck: Yes: No masses,lesions,Nodules, Supple Breast: Yes: Breast Exam Deferred, Within Normal Limits Cardiology: Yes: Regular Rhythm, Regular Rate, S1, S2 Abdominal: Yes: Normal Bowel Sounds, Non Tender, Soft Genitourinary: Yes: Within Normal Limits Back: Yes: Normal Inspection, Muscle Spasm Musculoskeletal: Yes: full range of Motion, Gait Steady, Back pain, Muscle Pain Extremities: Yes: Normal Inspection, Normal Range of Motion, Non-Tender, Tremors Neurological: Yes: counseling services director II-XII NML intact, Fully Oriented, Alert, Motor Strength 5/5, Depressed Affect Integumentary: Yes: Normal Color, Warm, Moist Lymphatic: Yes: Within Normal Limits - Diagnostic (1) Nicotine dependence Current Visit: Yes Status: Acute Qualifiers: Nicotine product type: cigarettes Substance use status: uncomplicated Qualified Code(s): F17.210 - Nicotine dependence, cigarettes, uncomplicated (2) Opioid dependence with withdrawal Current Visit: Yes Status: Acute (3) Cannabis dependence Current Visit: Yes Status: Acute (4) Depression (emotion) Current Visit: Yes Status: Chronic Qualifiers: Depression Type: unspecified Qualified Code(s): F32.9 - Major depressive disorder, single episode, unspecified (5) Anemia Current Visit: Yes Status: Chronic Qualifiers: Anemia type: unspecified type Qualified Code(s): D64.9 - Anemia, unspecified Cleared for Admission [facility] - Detox or Rehab [facility] Level of Care: Medically Managed Detox Regimen/Protocol: Methadone [facility] Breath Alcohol Content Breath Alcohol Content: 0 Urine Pregancy Test - Result Urine Test Results: Negative- NO Line Present Urine Drug Screen - Results Drug Screen Negative: No Urine Drug Screen Results: THC-Marijuana, OPI-Opiates, BZO-Benzodiazepines, TCA- Tricyclic Antidepress
[2018-03-26] MEDS ORDERED: P-EPHED 60MG/TRIPROLIDI 2.5MG TABLET PO PRN (17:05)
[2018-03-26] MEDS ORDERED: MAGNESIUM CITRATE 300 ML BOTTLE PO PRN (17:05)
[2018-03-26] MEDS ORDERED: MAGNESIUM HYDROX 2400MG/30ML ORAL SUSPENSION 30 ML CUP PO PRN (17:05)
[2018-03-26] MEDS ORDERED: IBUPROFEN 400 MG TABLET (FP) PO PRN (17:05)
[2018-03-26] MEDS ORDERED: NICOTINE POLACRILEX 2 MG GUM BC PRN (17:05)
[2018-03-26] MEDS ORDERED: guaiFENesin/D-METHORPHAN HB 10 ML UNIT-DOSE CUPS PO PRN (17:05)
[2018-03-26] MEDS ORDERED: LOPERAMIDE HCL 2 MG CAPSULE PO PRN (17:05)
[2018-03-26] MEDS ORDERED: ACETAMINOPHEN 325 MG TABLET (FP) PO PRN (17:05)
[2018-03-26] MEDS ORDERED: MENTHOL/PHENOL 1 EACH UD MM PRN (17:05)
[2018-03-26] MEDS ORDERED: MAG HYDROX/AL HYDROX/SIMETH 30 ML UNIT-DOSE CUP PO PRN (17:05)
[2018-03-26] MEDS ORDERED: METHADONE HCL 10 MG TABLET (FOR DETOX USE ONLY) PO ONE ×2 (17:45→23:00)
[2018-03-26] MEDS: diazePAM 5 MG TABLET PO PRN (19:00)
[2018-03-26] MEDS ORDERED: MELATONIN 5 MG TABLETS PO PRN (22:00)
[2018-03-26] MEDS: hydrOXYzine PAMOATE 50 MG CAPSULE (FP) PO PRN (22:25)
[2018-03-26] MEDS: THIAMINE HCL 100 MG TABLET (FP) PO SCH (22:25)
[2018-03-27] MEDS ORDERED: METHADONE HCL 10 MG TABLET (FOR DETOX USE ONLY) PO ONE (10:00)
[2018-03-27] MEDS: PRENATAL VITAMINS W/ FOLIC ACID TABLET (FP) PO SCH (10:34)
[2018-03-27] MEDS: NICOTINE 21 MG/24 HOURS TOPICAL PATCH TD SCH (10:35)
--- NOTE | 2018-03-27 14:25 | PN ---
BHS COWS - Scale Resting Pulse: 1= [place] 81-100 Sweatin= Chills/Flushing Restless Observation: 3= Extraneous Movement Pupil Size: 1= Pupils >than Normal Bone or Joint Aches: 2= Severe Diffuse Aches Runny Nose/ Eye Tearin= Runny Nose/Eyes GI Upset > 30mins: 3= Vomiting/Diarrhea Tremor Observation of Outstretched Hands: 2= Slight Tremor Visible Yawning Observation: 1= 1-2x During Session Anxiety or Irritability: 2=Irritable/Anxious Goose Flesh Skin: 0=Smooth Skin COWS Score: 18 BHS Progress Note (SOAP) Subjective: alert,irritable,anxious,irritable,interrupted sleep,pain in the body and back Objective: 03/27/18 14:23 Vital Signs Temperature 98.2 F 03/27/18 10:54 Pulse Rate 85 03/27/18 10:54 Respiratory Rate 18 03/27/18 10:54 Blood Pressure 97/63 03/27/18 10:54 O2 Sat by Pulse Oximetry (%) 03/27/18 14:24 ekg nsr,normal ecg qt 360/425 labs pending Assessment: 03/27/18 14:24 withdrawal symptom Plan: continue detox
--- NOTE | 2018-03-27 14:49 | EKG ---
Test Reason : Blood Pressure : / mmHG Vent. Rate : 084 BPM Atrial Rate : 084 BPM P-R Int : 134 ms QRS Dur : 090 ms QT Int : 360 ms P-R-T Axes : 063 077 050 degrees QTc Int : 425 ms NORMAL SINUS RHYTHM NORMAL ECG WHEN COMPARED WITH ECG OF 26-FEB-2018 22:08, NO SIGNIFICANT CHANGE WAS FOUND Confirmed by MD Mcnulty Daniel ([id number]) on 03/27/2018 2:49:29 PM Referred By: Confirmed By:Oscar Mcnulty MD
[2018-03-27] MEDS: diazePAM 5 MG TABLET PO PRN ×2 (15:22→23:17)
[2018-03-27] MEDS: hydrOXYzine PAMOATE 50 MG CAPSULE (FP) PO PRN ×2 (17:12→23:17)
--- NOTE | 2018-03-27 17:56 | CONSULT ---
[facility] Psychiatric Consult - Data Date of interview: 03/27/18 Admission source: [facility] Identifying data: This is one of several admissions to [facility] for this 17 y/ o AA female seeking detox treatment on for heroin and cannabis dependence.Patient is single without dependents,domiciled (lives with relatives) ,unemployed and supported financially by family members. Substance Abuse History: Confirmed by patient in this interview.Smoking history : Current every day smoker. Have you smoked in the past 12 months: Yes. Aproximately how many cigarettes per day: 10. Cigars Per Day: 0. Hx Chewing Tobacco Use: No. Initiated information on smoking cessation: Yes. 'Breaking Loose' booklet given: 03/26/18. - Substances Abused. Heroin. Route: Inhalation. Frequency: Daily. Amount used: 6 BAGS. Age of first use: 15. Date of Last Use: 03/26/18. THC. Frequency: 3-6 times per week. Amount used: 1 BLUNT. Age of first use: 12. Date of Last Use: 03/25/18 Medical History: Patient endorses good general health.Noted history of gastritis and anemia. Psychiatric History: Unreliable historian (known for multiple versions of personal history to various clinicians).Patient denies history of psychiatric hospitalizations.Admits to being prescribed seroquel 100 mg/hs + ambien 15 mg/ hs by a psychiatrist that she sees at the [facility] [employer] [place] in [facility].No longer on buspar as per self-report.Questionable adherence to seroquel.Diagnosed with insomnia and Anxiety Disorder.Review of records at [facility] uncovers prior report of two psychiatric hospitalizations ([facility] + [facility]).As recently as 2017 (make up man Syd's note of 12/11/17).Patient denies history of suicide attempts. Physical/Sexual Abuse/Trauma History: No reported history. Additional Comment: Urine Drug Screen Results: THC-Marijuana, OPI-Opiates, BZO- Benzodiazepines, TCA-Tricyclic Antidepressant.Noted. Mental Status Exam - Mental Status Exam Alert and Oriented to: Time, Place, Person Cognitive Function: Good Patient Appearance: Well Groomed Mood: Hopeful, Euthymic Affect: Appropriate, Normal Range Patient Behavior: Fatigued, Cooperative Speech Pattern: Clear, Appropriate Voice Loudness: Normal Thought Process: Intact, Goal Oriented Thought Disorder: Not Present Hallucinations: Denies Suicidal Ideation: Denies Homicidal Ideation: Denies Insight/Judgement: Poor Sleep: Poorly, Difficulty falling asleep Appetite: Good Muscle strength/Tone: Normal Gait/Station: Normal Psychiatric Findings - Problem List ([place] 1, 2,3) (1) Opioid dependence with withdrawal Current Visit: Yes Status: Acute (2) Cannabis dependence Current Visit: Yes Status: Acute (3) Nicotine dependence Current Visit: Yes Status: Acute Qualifiers: Nicotine product type: cigarettes Substance use status: uncomplicated Qualified Code(s): F17.210 - Nicotine dependence, cigarettes, uncomplicated (4) Drug-induced mood disorder Current Visit: Yes Status: Acute (5) Insomnia Current Visit: No Status: Acute - Initial Treatment Plan Initial Treatment Plan: Psychoeducation.Sleep hygiene discussed in this session.Detoxification in process.Medications : seroquel 100 mg po hs.Ambien is withdrawn.Side effects/benefits discussed with the patient.Ms Acosta agrees to this careplan.Will observe response.
[2018-03-27] MEDS: QUEtiapine FUMARATE 100 MG TABLET (FP) PO SCH (23:17)
[2018-03-27] MEDS: THIAMINE HCL 100 MG TABLET (FP) PO SCH (23:18)
[2018-03-28] MEDS ORDERED: METHADONE HCL 5 MG TABLET (FOR DETOX USE ONLY) PO ONE (10:00)
[2018-03-28] MEDS: PRENATAL VITAMINS W/ FOLIC ACID TABLET (FP) PO SCH (10:30)
[2018-03-28] MEDS: diazePAM 5 MG TABLET PO PRN ×3 (10:30→22:31)
[2018-03-28] MEDS: NICOTINE 21 MG/24 HOURS TOPICAL PATCH TD SCH (10:32)
--- NOTE | 2018-03-28 11:39 | PN ---
BHS COWS - Scale Resting Pulse: 1= [place] 81-100 Sweatin= Chills/Flushing Restless Observation: 1= Difficult to Sit Still Pupil Size: 1= Pupils >than Normal Bone or Joint Aches: 2= Severe Diffuse Aches Runny Nose/ Eye Tearin= Runny Nose/Eyes GI Upset > 30mins: 2= Nausea/Diarrhea Tremor Observation of Outstretched Hands: 2= Slight Tremor Visible Yawning Observation: 2= >3x During Session Anxiety or Irritability: 2=Irritable/Anxious Goose Flesh Skin: 0=Smooth Skin COWS Score: 16 BHS Progress Note (SOAP) Subjective: joint pain body ache sweat tremor gi distress trouble sleep at night Objective: 03/28/18 11:43 Vital Signs Temperature 98.2 F 03/28/18 10:00 Pulse Rate 94 H 03/28/18 10:00 Respiratory Rate 16 03/28/18 10:00 Blood Pressure 98/63 03/28/18 10:00 O2 Sat by Pulse Oximetry (%) lab not available Assessment: 03/28/18 11:48 withdrawal sx Plan: continue detox
[2018-03-28] MEDS: QUEtiapine FUMARATE 100 MG TABLET (FP) PO SCH (22:24)
[2018-03-28] MEDS: THIAMINE HCL 100 MG TABLET (FP) PO SCH (22:24)
[2018-03-29] MEDS ORDERED: METHADONE HCL 5 MG TABLET (FOR DETOX USE ONLY) PO ONE ×2 (10:00)
[2018-03-29] MEDS ORDERED: METHADONE HCL 10 MG TABLET (FOR DETOX USE ONLY) PO ONE (10:00)
[2018-03-29] MEDS: NICOTINE 21 MG/24 HOURS TOPICAL PATCH TD SCH (10:51)
[2018-03-29] MEDS: PRENATAL VITAMINS W/ FOLIC ACID TABLET (FP) PO SCH (10:51)
[2018-03-29] MEDS: diazePAM 5 MG TABLET PO PRN (10:52)
--- NOTE | 2018-03-29 12:30 | PN ---
BHS Progress Note (SOAP) Subjective: feeling better no tremor no body pain sleep better at night less sweat patient reported feeling much better now and would like to begin recovery process as soon as possible Objective: 03/29/18 12:31 Vital Signs Temperature 98.4 F 03/29/18 10:40 Pulse Rate 96 H 03/29/18 10:40 Respiratory Rate 20 03/29/18 10:40 Blood Pressure 119/62 03/29/18 10:40 O2 Sat by Pulse Oximetry (%) 03/29/18 12:32 unable to paste 02/2018 lab result 03/29/18 12:36 tailored opiate detox regimen suitable to patient's current withdrawal Assessment: 03/29/18 12:33 mild withdrawal sx Plan: medically supervised detox
--- NOTE | 2018-03-29 13:57 | PN ---
Psychiatric Progress Note Vital Signs: Vital Signs Period Temp Pulse Resp BP Sys/C[place]anza Pulse Ox Last 24 Hr 98.1 F-100.0 F 86-109 16-20 96-136/51-78 Date of Session: 03/29/18 Chief Complaint:: Insomnia HPI: Patient reports taking prior to admissionAmbien 10mg po psn for insomnia Current Medications: Active Medications Generic Name Dose Route Start Last Admin Trade Name Freq PRN Reason Stop Dose Admin Acetaminophen 650 mg 03/26/18 17:05 03/27/18 17:15 Tylenol - PO 650 mg Q4H PRN Administration FEVER Al Hydroxide/Mg Hydroxide 30 ml 03/26/18 17:05 Mylanta Oral Suspension - PO Q6H PRN DYSPEPSIA Diazepam 10 mg 03/26/18 17:07 03/29/18 10:52 Valium - PO 03/29/18 17:06 10 mg Q4H PRN Administration WITHDRAWAL(CONT SUBST) Eucalyptus/Menthol/Phenol/Sorbitol 1 each 03/26/18 17:05 Cepastat Lozenge - MM Q4H PRN SORE THROAT Guaifenesin 10 ml 03/26/18 17:05 Robitussin Dm - PO Q6H PRN COUGH Hydroxyzine Pamoate 50 mg 03/26/18 17:05 03/27/18 23:17 Vistaril - PO 50 mg Q4H PRN Administration AGITATION Ibuprofen 400 mg 03/26/18 17:05 Motrin - PO Q6H PRN PAIN LEVEL 4-6 Loperamide HCl 4 mg 03/26/18 17:05 Imodium - PO Q6H PRN DIARRHEA Magnesium Citrate 300 ml 03/26/18 17:05 Citroma - PO Q48H PRN CONSTIPATION Magnesium Hydroxide 30 ml 03/26/18 17:05 Milk Of Magnesia - PO DAILY PRN CONSTIPATION Melatonin 5 mg 03/26/18 22:00 03/26/18 22:25 Melatonin PO 5 mg HS PRN Administration INSOMNIA Methadone HCl 5 mg 03/30/18 06:00 Dolophine - PO 03/30/18 06:01 ONCE ONE Nicotine 21 mg 03/27/18 10:00 03/29/18 10:51 Nicoderm Patch - TD Not Given DAILY HOLLY Nicotine Polacrilex 2 mg 03/26/18 17:05 Nicorette Gum - BC Q2H PRN NICOTINE REPLACEMENT RX Multivit/Folic Acid/Iron 1 tab 03/27/18 10:00 03/29/18 10:51 Vitamins (Sjr) - PO Not Given DAILY HOLLY Pseudoephedrine/Triprolidine 1 combo 03/26/18 17:05 Actifed - PO TID PRN NASAL CONGESTION Quetiapine Fumarate 100 mg 03/27/18 22:00 03/28/18 22:24 Seroquel - PO 100 mg HS HOLLY Administration Thiamine HCl 100 mg 03/26/18 22:00 03/28/18 22:24 Vitamin B1 - PO 100 mg HS HOLLY Administration Zolpidem Tartrate 10 mg 03/29/18 22:00 Ambien - PO 04/01/18 21:59 HS PRN INSOMNIA Medication(s) Change(s): Ambien 10mg po qhs Mental Status Exam - Mental Status Exam Alert and Oriented to: Place, Person Cognitive Function: Fair Patient Appearance: Well Groomed Mood: Apprehensive Affect: Mood Congruent Patient Behavior: Cooperative Speech Pattern: Appropriate Voice Loudness: Normal Thought Process: Goal Oriented Thought Disorder: Being Controlled Hallucinations: Denies Suicidal Ideation: Denies Homicidal Ideation: Denies Insight/Judgement: Fair Sleep: Difficulty falling asleep Appetite: Fair Muscle strength/Tone: Normal Gait/Station: Normal Additional Comments: Ambien 10mg po qhs Psychiatric Treatment Plan - Problem List (1) Cannabis dependence Current Visit: Yes (2) Cocaine dependence Current Visit: Yes (3) Cocaine dependence Current Visit: Yes (4) Drug-induced mood disorder Current Visit: Yes (5) Opioid dependence with withdrawal Current Visit: Yes (6) Drug-induced mood disorder Current Visit: No (7) Drug-induced mood disorder Current Visit: No (8) Substance-induced sleep disorder Current Visit: No (9) Substance-induced sleep disorder Current Visit: No (10) Opiate abuse, episodic Current Visit: No Initial treatment plan: Ambien 10mg po qhs prn for insomnia
[2018-03-29] MEDS ORDERED: ZOLPIDEM TARTRATE 10 MG TABLET (PARK CARE ONLY) PO PRN (22:00)
[2018-03-29] MEDS: THIAMINE HCL 100 MG TABLET (FP) PO SCH (22:47)
[2018-03-29] MEDS: hydrOXYzine PAMOATE 50 MG CAPSULE (FP) PO PRN (22:48)
[2018-03-29] MEDS: QUEtiapine FUMARATE 100 MG TABLET (FP) PO SCH (22:48)
[2018-03-30] MEDS ORDERED: METHADONE HCL 5 MG TABLET (FOR DETOX USE ONLY) PO ONE (06:00)
[2018-03-30] MEDS ORDERED: METHADONE HCL 10 MG TABLET (FOR DETOX USE ONLY) PO ONE ×2 (06:00→10:00)
[2018-03-30 06:02] VITALS: BP 112/66; PULSE 120; TEMP 98.1
--- NOTE | 2018-03-30 08:59 | PN ---
S Progress Note (SOAP) Subjective: alert,no complaint Objective: 03/30/18 08:57 Vital Signs Temperature 98.1 F 03/30/18 06:00 Pulse Rate 120 H 03/30/18 06:00 Respiratory Rate 20 03/30/18 06:00 Blood Pressure 112/66 03/30/18 06:00 O2 Sat by Pulse Oximetry (%) Assessment: 03/30/18 08:58 detox completed,no withdrawal symptom Plan: discharge today,follow up with after care program as arrangement
--- NOTE | 2018-03-30 09:03 | DS ---
[facility] Detox Discharge Summary Admission Date: 03/26/18 Discharge Date: 03/30/18 - History Present History: Cocaine Dependence, Opioid Dependence Pertinent Past History: nicotine dependence history of anemia depression - Physical Exam Results Vital Signs: Vital Signs Temperature 98.1 F 03/30/18 06:00 Pulse Rate 120 H 03/30/18 06:00 Respiratory Rate 20 03/30/18 06:00 Blood Pressure 112/66 03/30/18 06:00 O2 Sat by Pulse Oximetry (%) Pertinent Admission Physical Exam Findings: withdrawal signs and symptom Vital Signs Temperature 98.1 F 03/30/18 06:00 Pulse Rate 120 H 03/30/18 06:00 Respiratory Rate 20 03/30/18 06:00 Blood Pressure 112/66 03/30/18 06:00 O2 Sat by Pulse Oximetry (%) - Treatment Hospital Course: Detox Protocol Followed, Detoxed Safely, Responded well, Discharged Condition Good Patient has Accepted a Rehab Referral to: declined - Medication Discharge Medications: Ambulatory Orders Eszopiclone [Lunesta -] 10 mg PO HS 01/03/17 Quetiapine Fumarate [Seroquel] 100 mg PO HS #30 tablet 03/01/18 Zolpidem Tartrate [Ambien] 10 mg PO HS 03/26/18 Quetiapine Fumarate [Seroquel] 100 mg PO HS #30 tablet 03/29/18 - Diagnosis (1) Opioid dependence with withdrawal Current Visit: Yes Status: Acute (2) Cocaine dependence Current Visit: Yes Status: Acute (3) Cannabis dependence Current Visit: Yes Status: Acute (4) Nicotine dependence Current Visit: Yes Status: Acute Qualifiers: Nicotine product type: cigarettes Substance use status: uncomplicated Qualified Code(s): F17.210 - Nicotine dependence, cigarettes, uncomplicated (5) Anemia Current Visit: Yes Status: Chronic Qualifiers: Anemia type: unspecified type Qualified Code(s): D64.9 - Anemia, unspecified (6) Depression (emotion) Current Visit: Yes Status: Chronic Qualifiers: Depression Type: unspecified Qualified Code(s): F32.9 - Major depressive disorder, single episode, unspecified - AMA Did Patient Leave Against Medical Advice: No
[2018-03-31] MEDS ORDERED: METHADONE HCL 5 MG TABLET (FOR DETOX USE ONLY) PO ONE (06:00)
== END 2018-03-30 09:38 | disposition home or self-care (01) | DRG 897 ==
LOC: YASAS 13:26 → Y6N 17:07
PROVIDERS: ADMIT Surgery; ATTEND Surgery
PROC: HZ2ZZZZ Detoxification Services for Substance Abuse Treatment (ICD-10-PCS; principal; 2018-03-26)
DX: F11.23 Opioid dependence with withdrawal (principal); F14.20 Cocaine dependence, uncomplicated; F19.282 Other psychoactive substance dependence with psychoactive substance-induced sleep disorder; F12.20 Cannabis dependence, uncomplicated; F17.210 Nicotine dependence, cigarettes, uncomplicated; F32.9 Major depressive disorder, single episode, unspecified; F19.24 Other psychoactive substance dependence with psychoactive substance-induced mood disorder; D64.9 Anemia, unspecified; G47.00 Insomnia, unspecified
CPT/HCPCS: 93005; 93010

== ENCOUNTER 2018-05-19 15:09 | Inpatient (IN) | payer BC ==
[2018-05-19 16:38] VITALS: BMI 24.0
[2018-05-19] MEDS ORDERED: MELATONIN 5 MG TABLETS PO PRN (22:00)
--- NOTE | 2018-05-19 23:44 | HP ---
COWS - Scale Resting Pulse: 2= [place] 101-120 Sweatin=Flushed/Facial Moisture Restless Observation: 0= Sits Still Pupil Size: 0= Normal to Room Light Bone or Joint Aches: 4=Acute Joint/Muscle Pain Runny Nose/ Eye Tearin= Runny Nose/Eyes GI Upset > 30mins: 1= Stomach Cramp Tremor Observation: 2= Slight Tremor Visible Yawning Observation: 0= None Anxiety or Irritability: 4=Extreme Anxiety Goose Flesh Skin: 0=Smooth Skin COWS Score: 17 Admission ROS [facility] Chief Complaint: Heroin withdrawal symptoms Allergies/Adverse Reactions: Allergies Allergy/AdvReac Type Severity Reaction Status Date / Time No Known Allergies Allergy Verified 05/13/18 13:15 History of Present Illness: 18 years old female with a long history of heroin dependence is seeking admission. Patient has been in multiple admissions to [facility] and reports insignificant period of sobriety. She has medical history of anemia, depression and anxiety. Denies suicide attempt and suicidal ideation at this time. Exam Limitations: No Limitations - Ebola screening Have you traveled outside of the country in the last 21 days: No (N) Have you had contact with anyone from an Ebola affected area: No Have you been sick,other than usual withdrawal symptoms: No Do you have a fever: No - Review of Systems Constitutional: Chills, Loss of Appetite, Malaise, Changes in sleep, Weakness EENT: reports: Sinus Pressure Respiratory: reports: No Symptoms reported Cardiac: reports: No Symptoms Reported GI: reports: Constipated, Poor Appetite, Poor Fluid Intake, Abdominal cramping : reports: No Symptoms Reported Musculoskeletal: reports: Back Pain Integumentary: reports: Dryness Neuro: reports: Tremors Endocrine: reports: No Symptoms Reported Hematology: reports: No Symptoms Reported Psychiatric: reports: Anxious, Depressed Other Systems: Reviewed and Negative Patient History - Patient Medical History Hx Anemia: Yes (Not on medication) Hx Asthma: No Hx Chronic Obstructive Pulmonary Disease (COPD): No Hx Cancer: No Hx Cardiac Disorders: No Hx Congestive Heart Failure: No Hx Hypertension: No Hx Hypercholesterolemia: No Hx Pacemaker: No HX Cerebrovascular Accident: No Hx Seizures: No Hx Dementia: No Hx Diabetes: No Hx Gastrointestinal Disorders: No Hx Liver Disease: No Hx Genitourinary Disorders: No Hx Sexually Transmitted Disorders: No Hx Renal Disease (ESRD): No Hx Thyroid Disease: No Hx Human Immunodeficiency Virus (HIV): No (Negative 2018) Hx Hepatitis C: No Hx Depression: Yes (Seroquel) Hx Suicide Attempt: No Hx Bipolar Disorder: No Hx Schizophrenia: No Other Medical History: Anxiety - Buspar - Patient Surgical History Past Surgical History: No Hx Neurologic Surgery: No Hx Cataract Extraction: No Hx Cardiac Surgery: No Hx Lung Surgery: No Hx Breast Surgery: No Hx Breast Biopsy: No Hx Abdominal Surgery: No Hx Appendectomy: No Hx Cholecystectomy: No Hx Genitourinary Surgery: No Hx Section: No Hx Orthopedic Surgery: No Hx Hysterectomy: No Anesthesia Reaction: No - PPD History Previous Implant?: Yes Date: 02/28/18 Results: 0 mm PPD to be Administered?: No - Reproductive History Patient is a Female of Child Bearing Age (11 -55 yrs old): Yes Last Menstrual Period: 06/13/17 LMP comment: Has a control implant Patient : No - Smoking Cessation Smoking history: Current every day smoker Have you smoked in the past 12 months: Yes Aproximately how many cigarettes per day: 10 Cigars Per Day: 0 Hx Chewing Tobacco Use: No Initiated information on smoking cessation: Yes 'Breaking Loose' booklet given: 05/19/18 - Substance & Tx. History Hx Alcohol Use: No Hx Substance Use: Yes Substance Use Type: Heroin - Substances Abused Heroin Route: Inhalation Frequency: Daily Amount used: 6 bags Age of first use: 17 Date of Last Use: 05/19/18 Family Disease History - Family Disease History Family Disease History: CA: Grandparent (dementia), Respiratory: Sister (Asthma) , Other: Grandparent, Father (alive), Mother (alive and well) Admission Physical Exam S - Vital Signs Vital Signs: Vital Signs - 24 hr 05/19/18 16:36 Temperature 97.8 F Pulse Rate 120 H Respiratory 18 Rate Blood Pressure 117/69 - Physical General Appearance: Yes: Moderate Distress, Tremorous, Irritable, Anxious HEENTM: Yes: Normal ENT Inspection, Normocephalic, Normal Voice, GINO Respiratory: Yes: Lungs Clear, Normal Breath Sounds, No Respiratory Distress Neck: Yes: Supple Breast: Yes: Breast Exam Deferred Cardiology: Yes: Regular Rhythm, Regular Rate Abdominal: Yes: Normal Bowel Sounds, Soft Genitourinary: Yes: Within Normal Limits Back: Yes: Normal Inspection Musculoskeletal: Yes: Back pain Extremities: Yes: Tremors Neurological: Yes: Alert, Normal Mood/Affect Integumentary: Yes: Normal Color Lymphatic: Yes: Within Normal Limits - Diagnostic (1) Nicotine dependence Current Visit: No Status: Acute Qualifiers: Nicotine product type: cigarettes Substance use status: uncomplicated Qualified Code(s): F17.210 - Nicotine dependence, cigarettes, uncomplicated (2) Opioid dependence, uncomplicated Current Visit: Yes Status: Chronic (3) Anemia Current Visit: Yes Status: Chronic Qualifiers: Anemia type: unspecified type Qualified Code(s): D64.9 - Anemia, unspecified (4) Anxiety disorder Current Visit: Yes Status: Chronic (5) Depression (emotion) Current Visit: Yes Status: Chronic Qualifiers: Depression Type: unspecified Qualified Code(s): F32.9 - Major depressive disorder, single episode, unspecified BHS Breath Alcohol Content Breath Alcohol Content: 0 Urine Pregancy Test - Result Urine Test Results: Negative- NO Line Present Urine Drug Screen - Results Drug Screen Negative: No Urine Drug Screen Results: OPI-Opiates, BZO-Benzodiazepines
[2018-05-19] MEDS ORDERED: guaiFENesin/D-METHORPHAN HB 10 ML UNIT-DOSE CUPS PO PRN (23:50)
[2018-05-19] MEDS ORDERED: MAGNESIUM CITRATE 300 ML BOTTLE PO PRN (23:50)
[2018-05-19] MEDS ORDERED: MENTHOL/PHENOL 1 EACH UD MM PRN (23:50)
[2018-05-19] MEDS ORDERED: MAG HYDROX/AL HYDROX/SIMETH 30 ML UNIT-DOSE CUP PO PRN (23:50)
[2018-05-19] MEDS ORDERED: ACETAMINOPHEN 325 MG TABLET (FP) PO PRN (23:50)
[2018-05-19] MEDS ORDERED: IBUPROFEN 400 MG TABLET (FP) PO PRN (23:50)
[2018-05-19] MEDS ORDERED: MAGNESIUM HYDROX 2400MG/30ML ORAL SUSPENSION 30 ML CUP PO PRN (23:50)
[2018-05-19] MEDS ORDERED: LOPERAMIDE HCL 2 MG CAPSULE PO PRN (23:50)
[2018-05-19] MEDS ORDERED: NICOTINE POLACRILEX 2 MG GUM BC PRN (23:50)
[2018-05-19] MEDS ORDERED: P-EPHED 60MG/TRIPROLIDI 2.5MG TABLET PO PRN (23:50)
[2018-05-20] MEDS ORDERED: METHADONE HCL 10 MG TABLET (FOR DETOX USE ONLY) PO ONE ×3 (00:58→23:00)
--- NOTE | 2018-05-20 07:47 | CONSULT ---
[facility] Psychiatric Consult - Data Date of interview: 05/20/18 Admission source: [facility] Identifying data: This is 18 years old female, single, living with family, unempl;oyed, with no psychiatric hospiotalization histyory, with a long history of heroin dependence, reports Opioid withdrawalo symproms and seeking admission for detox.. Patient has been in multiple admissions to [facility] and reports insignificant period of sobriety. As per chart has history og Cannabius , Alcohol and Cocaine abuse as well. Substance Abuse History: Smoking history: Current every day smoker. Have you smoked in the past 12 months: Yes. Aproximately how many cigarettes per day: 10. Cigars Per Day: 0. Hx Chewing Tobacco Use: No. Initiated information on smoking cessation: Yes. 'Breaking Loose' booklet given: 05/19/18. - Substance & Tx. History. Hx Alcohol Use: No. Hx Substance Use: Yes. Substance Use Type : Heroin. - Substances Abused. Heroin. Route: Inhalation. Frequency: Daily. Amount used: 6 bags. Age of first use: 17. Date of Last Use: 05/19/18 Medical History: Anemia history Psychiatric History: Patient reports hsitory of depression, denies psychiatric hospitalizations hisotry, denies suicidal, homicidal history, reportsm taking prior to admission: Seroquel 100,g po qjs. Ambien 10mg po qhs Physical/Sexual Abuse/Trauma History: Denies Additional Comment: Seroquel 100,g po qjs. Ambien 10mg po qhs Mental Status Exam - Mental Status Exam Alert and Oriented to: Person Cognitive Function: Fair Patient Appearance: Unkempt Mood: Sad Affect: Mood Congruent Patient Behavior: Sedated Speech Pattern: Delayed Voice Loudness: Mildly Soft/Quiet Thought Process: Circumstantial, Goal Oriented Thought Disorder: Being Controlled Hallucinations: Denies Suicidal Ideation: Denies Homicidal Ideation: Denies Insight/Judgement: Fair Sleep: Difficulty falling asleep Appetite: Fair Muscle strength/Tone: Mild Hypotonicity Gait/Station: Shuffling Additional Comments: Seroquel 100,g po qjs. Ambien 10mg po qhs Psychiatric Findings - Problem List ([place] 1, 2,3) (1) Anxiety disorder Current Visit: Yes Status: Chronic (2) Depression (emotion) Current Visit: Yes Status: Chronic Qualifiers: Depression Type: unspecified Qualified Code(s): F32.9 - Major depressive disorder, single episode, unspecified (3) Opioid dependence, uncomplicated Current Visit: Yes Status: Chronic (4) Cannabis dependence Current Visit: No Status: Acute (5) Cocaine dependence Current Visit: No Status: Acute (6) Cocaine dependence Current Visit: No Status: Acute (7) Drug-induced mood disorder Current Visit: No Status: Acute (8) Nicotine dependence Current Visit: No Status: Acute Qualifiers: Nicotine product type: cigarettes Substance use status: uncomplicated Qualified Code(s): F17.210 - Nicotine dependence, cigarettes, uncomplicated (9) Opioid dependence with withdrawal Current Visit: No Status: Acute (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 Ambien 10mg po qhs
[2018-05-20 09:58] LABS: CHLORIDE 108 mmol/L (98-107); SODIUM 141 mmol/L (136-145)
[2018-05-20] MEDS: PRENATAL VITAMINS W/ FOLIC ACID TABLET (FP) PO SCH (10:14)
[2018-05-20] MEDS: NICOTINE 14 MG/24 HOURS TOPICAL PATCH TD SCH (10:15)
[2018-05-20 10:23] LABS: ALK PHOS 96 U/L (45-117); ANION GAP 7 (8-16); BILIRUBIN,TOTAL 0.6 mg/dL (0.2-1.0); BLOOD UREA NITROGEN 12 mg/dL (7-18); CALCIUM 8.7 mg/dL (8.5-10.1); CO2 26 mmol/L (21-32); CREATININE 0.6 mg/dL (0.55-1.02); GLUCOSE,RANDOM 82 mg/dL (74-106); SGOT/AST 10 U/L (15-37); SGPT/ALT 14 U/L (12-78); TOT PROT 6.1 g/dl (6.4-8.2)
[2018-05-20 10:33] LABS: HEMATOCRIT 37.4 % (32.4-45.2); HEMOGLOBIN 12.2 GM/dL (10.7-15.3); MCH 27.1 pg (25.7-33.7); MCHC 32.6 g/dl (32.0-36.0); MEAN CELL VOLUME 83.1 fl (80-96); MEAN PLT VOLUME 8.3 fl (7.5-11.1); PLATELET COUNT 320 K/MM3 (134-434); WHITE BLOOD COUNT 7.9 K/mm3 (4.0-10.0)
--- NOTE | 2018-05-20 11:12 | PN ---
BHS COWS - Scale Resting Pulse: 0= [place] 80 or Below Sweatin= Chills/Flushing Restless Observation: 1= Difficult to Sit Still Pupil Size: 1= Pupils >than Normal Bone or Joint Aches: 2= Severe Diffuse Aches Runny Nose/ Eye Tearin= Runny Nose/Eyes GI Upset > 30mins: 2= Nausea/Diarrhea Tremor Observation of Outstretched Hands: 2= Slight Tremor Visible Yawning Observation: 2= >3x During Session Anxiety or Irritability: 2=Irritable/Anxious Goose Flesh Skin: 0=Smooth Skin COWS Score: 15 BHS Progress Note (SOAP) Subjective: muscle cramping body aches joints pain gi distress restlessness Objective: 05/20/18 11:14 Vital Signs Temperature 98.4 F 05/20/18 09:29 Pulse Rate 88 05/20/18 09:29 Respiratory Rate 18 05/20/18 09:29 Blood Pressure 103/59 05/20/18 09:29 O2 Sat by Pulse Oximetry (%) Laboratory Last Values WBC 7.9 K/mm3 (4.0-10.0) 05/20/18 07:30 RBC 4.50 M/mm3 (3.60-5.2) 05/20/18 07:30 Hgb 12.2 GM/dL (10.7-15.3) 05/20/18 07:30 Hct 37.4 % (32.4-45.2) 05/20/18 07:30 MCV 83.1 fl (80-96) 05/20/18 07:30 MCH 27.1 pg (25.7-33.7) 05/20/18 07:30 MCHC 32.6 g/dl (32.0-36.0) 05/20/18 07:30 RDW 15.0 % (11.6-15.6) 05/20/18 07:30 Plt Count 320 K/MM3 (134-434) 05/20/18 07:30 MPV 8.3 fl (7.5-11.1) 05/20/18 07:30 Sodium 141 mmol/L (136-145) 05/20/18 07:30 Potassium 4.0 mmol/L (3.5-5.1) 05/20/18 07:30 Chloride 108 mmol/L (98-107) H 05/20/18 07:30 Carbon Dioxide 26 mmol/L (21-32) 05/20/18 07:30 Anion Gap 7 (8-16) L 05/20/18 07:30 BUN 12 mg/dL (7-18) 05/20/18 07:30 Creatinine 0.6 mg/dL (0.55-1.02) 05/20/18 07:30 Creat Clearance w eGFR > 60 (>60) 05/20/18 07:30 Random Glucose 82 mg/dL (74-106) 05/20/18 07:30 Calcium 8.7 mg/dL (8.5-10.1) 05/20/18 07:30 Total Bilirubin 0.6 mg/dL (0.2-1.0) 05/20/18 07:30 AST 10 U/L (15-37) L 05/20/18 07:30 ALT 14 U/L (12-78) 05/20/18 07:30 Alkaline Phosphatase 96 U/L (45-117) 05/20/18 07:30 Total Protein 6.1 g/dl (6.4-8.2) L 05/20/18 07:30 Albumin 3.0 g/dl (3.4-5.0) L 05/20/18 07:30 lab noted Assessment: 05/20/18 11:15 withdrawal sx Plan: continue detox
[2018-05-20] MEDS: diazePAM 5 MG TABLET PO PRN ×3 (13:52→22:04)
--- NOTE | 2018-05-20 15:33 | EKG ---
Test Reason : Blood Pressure : / mmHG Vent. Rate : 093 BPM Atrial Rate : 093 BPM P-R Int : 140 ms QRS Dur : 092 ms QT Int : 352 ms P-R-T Axes : 068 072 048 degrees QTc Int : 437 ms NORMAL SINUS RHYTHM NORMAL ECG WHEN COMPARED WITH ECG OF 26-MAR-2018 18:48, NO SIGNIFICANT CHANGE WAS FOUND Confirmed by VALENTINA SAMAYOA MD ([id number]) on 05/20/2018 3:33:20 PM Referred By: Confirmed By:VALENTINA SAMAYOA MD
[2018-05-20] MEDS: THIAMINE HCL 100 MG TABLET (FP) PO SCH (22:03)
[2018-05-20] MEDS: QUEtiapine FUMARATE 100 MG TABLET (FP) PO SCH (22:04)
[2018-05-20] MEDS: ZOLPIDEM TARTRATE 10 MG TABLET (PARK CARE ONLY) PO PRN (22:04)
[2018-05-21] MEDS ORDERED: METHADONE HCL 10 MG TABLET (FOR DETOX USE ONLY) PO ONE (10:00)
[2018-05-21] MEDS: PRENATAL VITAMINS W/ FOLIC ACID TABLET (FP) PO SCH (10:09)
[2018-05-21] MEDS: NICOTINE 14 MG/24 HOURS TOPICAL PATCH TD SCH (10:09)
--- NOTE | 2018-05-21 10:40 | PN ---
BHS COWS - Scale Resting Pulse: 1= [place] 81-100 Sweatin= Chills/Flushing Restless Observation: 3= Extraneous Movement Pupil Size: 1= Pupils >than Normal Bone or Joint Aches: 2= Severe Diffuse Aches Runny Nose/ Eye Tearin= Nasal Congestion GI Upset > 30mins: 1= Stomach Cramp Tremor Observation of Outstretched Hands: 1= Tremor [place], Not Seen Yawning Observation: 0= None Anxiety or Irritability: 1=Feels Anxious/Irritable Goose Flesh Skin: 0=Smooth Skin COWS Score: 12 BHS Progress Note (SOAP) Subjective: interrupted sleep, sweats , muscle spasms ,decreased appepite anxiety Objective: 05/21/18 10:36 Vital Signs Temperature 98.2 F 05/21/18 09:53 Pulse Rate 80 05/21/18 09:53 Respiratory Rate 18 05/21/18 09:53 Blood Pressure 113/55 05/21/18 09:53 O2 Sat by Pulse Oximetry (%) Laboratory Tests 05/20/18 05/20/18 05/20/18 07:30 07:30 07:30 WBC 7.9 RBC 4.50 Hgb 12.2 Hct 37.4 MCV 83.1 MCH 27.1 MCHC 32.6 RDW 15.0 Plt Count 320 MPV 8.3 Sodium 141 Potassium 4.0 Chloride 108 H Carbon Dioxide 26 Anion Gap 7 L BUN 12 Creatinine 0.6 Creat Clearance w eGFR > 60 Random Glucose 82 Calcium 8.7 Total Bilirubin 0.6 AST 10 L ALT 14 Alkaline Phosphatase 96 Total Protein 6.1 L Albumin 3.0 L RPR Titer Nonreactive pending labs 05/21/18 10:38 pt lying in bed covered up , aox3, mildly anxious Assessment: 05/21/18 10:37 withdrawal sx's anxiety Plan: cont. detox increase fluids flexeril 5 mg tid ensure bid
[2018-05-21] MEDS: diazePAM 5 MG TABLET PO PRN ×3 (12:13→22:01)
[2018-05-21] MEDS: CYCLOBENZAPRINE HCL 5 MG TABLET PO SCH ×2 (13:56→22:00)
[2018-05-21] MEDS: QUEtiapine FUMARATE 100 MG TABLET (FP) PO SCH (22:00)
[2018-05-21] MEDS: ZOLPIDEM TARTRATE 10 MG TABLET (PARK CARE ONLY) PO PRN (22:00)
[2018-05-21] MEDS: THIAMINE HCL 100 MG TABLET (FP) PO SCH (22:00)
[2018-05-22] MEDS: CYCLOBENZAPRINE HCL 5 MG TABLET PO SCH ×3 (05:28→22:08)
[2018-05-22] MEDS: diazePAM 5 MG TABLET PO PRN ×4 (05:30→22:08)
[2018-05-22] MEDS ORDERED: METHADONE HCL 5 MG TABLET (FOR DETOX USE ONLY) PO ONE (10:00)
[2018-05-22] MEDS: PRENATAL VITAMINS W/ FOLIC ACID TABLET (FP) PO SCH (10:16)
[2018-05-22] MEDS: NICOTINE 14 MG/24 HOURS TOPICAL PATCH TD SCH (10:17)
--- NOTE | 2018-05-22 13:50 | PN ---
S Progress Note (SOAP) Subjective: alert,irritable,anxious,interrupted sleep,tremor,pain in the body Objective: 05/22/18 13:49 Vital Signs Temperature 97.9 F 05/22/18 10:04 Pulse Rate 82 05/22/18 10:04 Respiratory Rate 16 05/22/18 10:04 Blood Pressure 120/62 05/22/18 10:04 O2 Sat by Pulse Oximetry (%) Assessment: 05/22/18 13:49 withdrawal symptom Plan: continue detox
[2018-05-22 18:51] LABS: URINE APPEARANCE CLOUDY; URINE BILIRUBIN NEGATIVE (<2.0 mg/dL); URINE COLOR YELLOW; URINE GLUCOSE (UA) NEGATIVE (NEGATIVE); URINE KETONE NEGATIVE (NEGATIVE); URINE NITRITE NEGATIVE (NEGATIVE); URINE PROTEIN NEGATIVE (NEGATIVE); URINE UROBILINOGEN NEGATIVE mg/dL (0.2-1.0)
[2018-05-22 18:59] LABS: URINE LEUK ESTERASE 2+ (NEGATIVE)
[2018-05-22 19:05] LABS: EPI CELLS FEW /HPF (FEW); URINE BACTERIA FEW /hpf (NONE SEEN); URINE MUCUS RARE
[2018-05-22] MEDS: THIAMINE HCL 100 MG TABLET (FP) PO SCH (22:08)
[2018-05-22] MEDS: ZOLPIDEM TARTRATE 10 MG TABLET (PARK CARE ONLY) PO PRN (22:08)
[2018-05-22] MEDS: QUEtiapine FUMARATE 100 MG TABLET (FP) PO SCH (22:08)
[2018-05-23] MEDS: CYCLOBENZAPRINE HCL 5 MG TABLET PO SCH (05:35)
[2018-05-23 07:51] VITALS: BP 104/58; PULSE 104; TEMP 98.1
[2018-05-23] MEDS ORDERED: METHADONE HCL 5 MG TABLET (FOR DETOX USE ONLY) PO ONE (10:00)
--- NOTE | 2018-05-23 10:07 | DS ---
[facility] Detox Discharge Summary Admission Date: 05/19/18 Discharge Date: 05/23/18 - History Present History: Opioid Dependence Additional Comments: 18 years old female admitted on 05/19/18 for opiate withdrawal sx prefers to leave the detox facility today reports many things needed to be taking care of today - Physical Exam Results Vital Signs: Vital Signs Temperature 98.1 F 05/23/18 07:51 Pulse Rate 104 H 05/23/18 07:51 Respiratory Rate 20 05/23/18 07:51 Blood Pressure 104/58 05/23/18 07:51 O2 Sat by Pulse Oximetry (%) Pertinent Admission Physical Exam Findings: opiate withdrawal sx Vital Signs Temperature 98.1 F 05/23/18 07:51 Pulse Rate 104 H 05/23/18 07:51 Respiratory Rate 20 05/23/18 07:51 Blood Pressure 104/58 05/23/18 07:51 O2 Sat by Pulse Oximetry (%) Laboratory Last Values WBC 7.9 K/mm3 (4.0-10.0) 05/20/18 07:30 RBC 4.50 M/mm3 (3.60-5.2) 05/20/18 07:30 Hgb 12.2 GM/dL (10.7-15.3) 05/20/18 07:30 Hct 37.4 % (32.4-45.2) 05/20/18 07:30 MCV 83.1 fl (80-96) 05/20/18 07:30 MCH 27.1 pg (25.7-33.7) 05/20/18 07:30 MCHC 32.6 g/dl (32.0-36.0) 05/20/18 07:30 RDW 15.0 % (11.6-15.6) 05/20/18 07:30 Plt Count 320 K/MM3 (134-434) 05/20/18 07:30 MPV 8.3 fl (7.5-11.1) 05/20/18 07:30 Sodium 141 mmol/L (136-145) 05/20/18 07:30 Potassium 4.0 mmol/L (3.5-5.1) 05/20/18 07:30 Chloride 108 mmol/L (98-107) H 05/20/18 07:30 Carbon Dioxide 26 mmol/L (21-32) 05/20/18 07:30 Anion Gap 7 (8-16) L 05/20/18 07:30 BUN 12 mg/dL (7-18) 05/20/18 07:30 Creatinine 0.6 mg/dL (0.55-1.02) 05/20/18 07:30 Creat Clearance w eGFR > 60 (>60) 05/20/18 07:30 Random Glucose 82 mg/dL (74-106) 05/20/18 07:30 Calcium 8.7 mg/dL (8.5-10.1) 05/20/18 07:30 Total Bilirubin 0.6 mg/dL (0.2-1.0) 05/20/18 07:30 AST 10 U/L (15-37) L 05/20/18 07:30 ALT 14 U/L (12-78) 05/20/18 07:30 Alkaline Phosphatase 96 U/L (45-117) 05/20/18 07:30 Total Protein 6.1 g/dl (6.4-8.2) L 05/20/18 07:30 Albumin 3.0 g/dl (3.4-5.0) L 05/20/18 07:30 Urine Color Yellow 05/22/18 Unknown Urine Appearance Cloudy 05/22/18 Unknown Urine pH 6.0 (5.0-8.0) D 05/22/18 Unknown Ur Specific [place] 1.019 (1.001-1.035) 05/22/18 Unknown Urine Protein Negative (NEGATIVE) 05/22/18 Unknown Urine Glucose (UA) Negative (NEGATIVE) 05/22/18 Unknown Urine Ketones Negative (NEGATIVE) 05/22/18 Unknown Urine Blood Negative (NEGATIVE) 05/22/18 Unknown Urine Nitrite Negative (NEGATIVE) 05/22/18 Unknown Urine Bilirubin Negative (<2.0 mg/dL) 05/22/18 Unknown Urine Urobilinogen Negative mg/dL (0.2-1.0) 05/22/18 Unknown Ur Leukocyte Esterase 2+ (NEGATIVE) H 05/22/18 Unknown Urine WBC (Auto) 9 /hpf (3-5) 05/22/18 Unknown Urine RBC (Auto) 1 /hpf (0-3) 05/22/18 Unknown Ur Epithelial Cells Few /HPF (FEW) 05/22/18 Unknown Urine Bacteria Few /hpf (NONE SEEN) 05/22/18 Unknown Urine Mucus Rare 05/22/18 Unknown RPR Titer Nonreactive (NONREACTIVE) 05/20/18 07:30 lab noted health teaching on opiate misuse related health issues - Treatment Hospital Course: Detox Protocol Followed, Responded well Patient has Accepted a Rehab Referral to: positive direction - Medication Discharge Medications: Ambulatory Orders Quetiapine Fumarate [Seroquel -] 100 mg PO HS #30 tablet 05/20/18 Zolpidem Tartrate [Ambien] 10 mg PO HS #14 tablet MDD 10MG 05/20/18 - Diagnosis (1) Opioid dependence, uncomplicated Current Visit: Yes Status: Acute (2) Nicotine dependence Current Visit: Yes Status: Acute Qualifiers: Nicotine product type: cigarettes Substance use status: in withdrawal Qualified Code(s): F17.213 - Nicotine dependence, cigarettes, with withdrawal - AMA Did Patient Leave Against Medical Advice: Yes
[2018-05-23] MEDS: PRENATAL VITAMINS W/ FOLIC ACID TABLET (FP) PO SCH (11:30)
[2018-05-23] MEDS: NICOTINE 14 MG/24 HOURS TOPICAL PATCH TD SCH (11:30)
[2018-05-24] MEDS ORDERED: METHADONE HCL 10 MG TABLET (FOR DETOX USE ONLY) PO ONE (10:00)
[2018-05-25] MEDS ORDERED: METHADONE HCL 5 MG TABLET (FOR DETOX USE ONLY) PO ONE (06:00)
== END 2018-05-23 09:15 | disposition left against medical advice (07) | DRG 894 ==
LOC: YASAS 15:09 → Y6N 19:50
PROVIDERS: ADMIT Surgery; ATTEND Surgery
PROC: HZ2ZZZZ Detoxification Services for Substance Abuse Treatment (ICD-10-PCS; principal; 2018-05-19)
DX: F11.23 Opioid dependence with withdrawal (principal); F14.20 Cocaine dependence, uncomplicated; F13.20 Sedative, hypnotic or anxiolytic dependence, uncomplicated; F19.280 Other psychoactive substance dependence with psychoactive substance-induced anxiety disorder; F19.282 Other psychoactive substance dependence with psychoactive substance-induced sleep disorder; F10.10 Alcohol abuse, uncomplicated; F12.20 Cannabis dependence, uncomplicated; F17.213 Nicotine dependence, cigarettes, with withdrawal; F41.9 Anxiety disorder, unspecified; F19.24 Other psychoactive substance dependence with psychoactive substance-induced mood disorder
CPT/HCPCS: 36415; 80053; 81003; 81015; 85027; 86593; 93005; 93010

== ENCOUNTER 2018-07-07 14:36 | Inpatient (IN) | payer BC ==
[2018-07-07 17:19] VITALS: BMI 23.0
--- NOTE | 2018-07-07 20:55 | HP ---
COWS - Scale Resting Pulse: 2= [place] 101-120 Sweatin=Flushed/Facial Moisture Restless Observation: 0= Sits Still Pupil Size: 2= Moderately Dilated Bone or Joint Aches: 0= None Runny Nose/ Eye Tearin= Runny Nose/Eyes GI Upset > 30mins: 1= Stomach Cramp Tremor Observation: 4= Gross Tremor/Twitching Yawning Observation: 0= None Anxiety or Irritability: 1=Feels Anxious/Irritable Goose Flesh Skin: 0=Smooth Skin COWS Score: 14 Admission [facility] Chief Complaint: Here for heroin withdrawal. Allergies/Adverse Reactions: Allergies Allergy/AdvReac Type Severity Reaction Status Date / Time No Known Allergies Allergy Verified 07/07/18 19:26 History of Present Illness: Hx heroin use disorder since age 16. Uses intra-nasally. Nicotine use disorder since age 14. Has decreased amount. Denies hx seizures or blackouts. Denies significant PMH/PSH. Patient Name: Eron Acosta Date: 2000 Address: [address] [place] [address] Sex: Female Rx Written Rx Dispensed Drug Quantity Days Supply Prescriber Name 02/04/2018 02/05/2018 lorazepam 1 mg tablet 12 3 ReynaRama ortizand Patient Name: Eron Acosta Date: 2000 Address: [address] [place] [address] Sex: Female Rx Written Rx Dispensed Drug Quantity Days Supply Prescriber Name 09/09/2017 09/15/2017 zolpidem tartrate 10 mg tablet 14 14 HeJosé Miguel brizuela 08/26/2017 08/27/2017 zolpidem tartrate 5 mg tablet 15 15 Gray Draper Exam Limitations: No Limitations - Ebola screening Have you traveled outside of the country in the last 21 days: No Have you had contact with anyone from an Ebola affected area: No Have you been sick,other than usual withdrawal symptoms: No Do you have a fever: No - Review of Systems Constitutional: Diaphoresis, Changes in sleep (Difficulty falling and staying asleep) EENT: reports: Blurred Vision (Wears contact lenses.), Other (Runny nose) Respiratory: reports: No Symptoms reported Cardiac: reports: No Symptoms Reported GI: reports: Poor Appetite : reports: No Symptoms Reported Musculoskeletal: reports: Other (Occ muscle spasms arms and legs) Integumentary: reports: No Symptoms Reported Neuro: reports: Headache, Numbness (Occ numbness at tips of fingers. Not present at this moment.), Tremors Endocrine: reports: No Symptoms Reported Hematology: reports: No Symptoms Reported Psychiatric: reports: Judgement Intact, Orientated x3, Agitated, Anxious, Depressed (Denies thoughts of harming self or others) Patient History - Patient Medical History Hx Anemia: Yes (Not on medication) Hx Asthma: No Hx Chronic Obstructive Pulmonary Disease (COPD): No Hx Cancer: No Hx Cardiac Disorders: No Hx Congestive Heart Failure: No Hx Hypertension: No Hx Hypercholesterolemia: No Hx Pacemaker: No HX Cerebrovascular Accident: No Hx Seizures: No Hx Dementia: No Hx Diabetes: No Hx Gastrointestinal Disorders: No Hx Liver Disease: No Hx Genitourinary Disorders: No Hx Sexually Transmitted Disorders: No Hx Renal Disease (ESRD): No Hx Thyroid Disease: No Hx Human Immunodeficiency Virus (HIV): No (Negative 2018) Hx Hepatitis C: No Hx Depression: Yes (Seroquel) Hx Suicide Attempt: No Hx Bipolar Disorder: No Hx Schizophrenia: No - Patient Surgical History Past Surgical History: No Hx Neurologic Surgery: No Hx Cataract Extraction: No Hx Cardiac Surgery: No Hx Lung Surgery: No Hx Breast Surgery: No Hx Breast Biopsy: No Hx Abdominal Surgery: No Hx Appendectomy: No Hx Cholecystectomy: No Hx Genitourinary Surgery: No Hx Section: No Hx Orthopedic Surgery: No Hx Hysterectomy: No Anesthesia Reaction: No - PPD History Previous Implant?: Yes Documented Results: Negative w/proof Implanted On Prior [facility] Admission?: Yes Date: 02/28/18 Results: NEGATIVE PPD to be Administered?: No - Reproductive History Patient is a Female of Child Bearing Age (11 -55 yrs old): Yes Last Menstrual Period: 06/13/17 LMP comment: Has a -control implant in arm which makes periods irregular. Patient : No - Smoking Cessation Smoking history: Current every day smoker Have you smoked in the past 12 months: Yes Aproximately how many cigarettes per day: 7 Cigars Per Day: 0 Hx Chewing Tobacco Use: No Initiated information on smoking cessation: Yes 'Breaking Loose' booklet given: 07/07/18 - Substance & Tx. History Hx Alcohol Use: No Hx Substance Use: Yes Substance Use Type: Heroin Hx Substance Use Treatment: Yes (detox ) - Substances Abused Heroin Route: Inhalation Frequency: Daily Amount used: 6 BAGS Age of first use: 16 Date of Last Use: 07/07/18 Family Disease History - Family Disease History Family Disease History: [place]: Grandparent (dementia), Respiratory: Sister (Asthma) , Other: Grandparent, Father (alive), Mother (alive and well) Admission Physical Exam [facility] - Vital Signs Vital Signs: Vital Signs - 24 hr 07/07/18 17:17 Temperature 120 F H Pulse Rate 116 H Respiratory 18 Rate Blood Pressure 116/65 - Physical General Appearance: Yes: Appropriately Dressed, Tremorous, Sweating, Anxious HEENTM: Yes: EOMI, Hearing grossly Normal, GINO, Tm's normal (No erythema or bulging.), Rhinorrhea (Clear.), Pharyngeal Erythemia, Tonsilar Erythema ( Enlarged. No exudate or lesions.) Respiratory: Yes: Lungs Clear, Normal Breath Sounds, No Respiratory Distress Neck: Yes: No masses,lesions,Nodules, Supple Breast: Yes: Breast Exam Deferred Cardiology: Yes: Regular Rhythm, S1, S2, Tachycardia Abdominal: Yes: Non Tender, Flat, Soft, Increased Bowel Sounds Genitourinary: Yes: Within Normal Limits Back: Yes: Normal Inspection Musculoskeletal: Yes: full range of Motion Extremities: Yes: Normal Capillary Refill, Normal Range of Motion, Non-Tender, Tremors (of hands) Neurological: Yes: ad operations specialist II-XII NML intact, Motor Strength 5/5, Normal Mood/Affect , Normal Response Integumentary: Yes: Normal Color, Dry, Warm Lymphatic: Yes: Within Normal Limits - Diagnostic (1) Fever Current Visit: Yes Status: Acute Qualifiers: Fever type: unspecified Qualified Code(s): R50.9 - Fever, unspecified (2) Nicotine dependence Current Visit: Yes Status: Chronic Qualifiers: Nicotine product type: cigarettes Substance use status: in withdrawal Qualified Code(s): F17.213 - Nicotine dependence, cigarettes, with withdrawal (3) Opioid dependence with withdrawal Current Visit: Yes Status: Acute (4) Dehydration Current Visit: Yes Status: Acute Cleared for Admission [facility] - Detox or Rehab [facility] Level of Care: Medically Managed Detox Regimen/Protocol: Methadone [facility] Breath Alcohol Content Breath Alcohol Content: 0 Urine Pregancy Test - Result Urine Test Results: Negative- NO Line Present Urine Drug Screen - Results Drug Screen Negative: No Urine Drug Screen Results: OPI-Opiates, FEN-Fentanyl
[2018-07-07] MEDS ORDERED: METHADONE HCL 10 MG TABLET (FOR DETOX USE ONLY) PO ONE ×2 (21:14→23:00)
[2018-07-07] MEDS ORDERED: MAGNESIUM HYDROX 2400MG/30ML ORAL SUSPENSION 30 ML CUP PO PRN (21:14)
[2018-07-07] MEDS ORDERED: LOPERAMIDE HCL 2 MG CAPSULE PO PRN (21:14)
[2018-07-07] MEDS ORDERED: MAGNESIUM CITRATE 300 ML BOTTLE PO PRN (21:14)
[2018-07-07] MEDS ORDERED: guaiFENesin/D-METHORPHAN HB 10 ML UNIT-DOSE CUPS PO PRN (21:14)
[2018-07-07] MEDS ORDERED: IBUPROFEN 400 MG TABLET (FP) PO PRN (21:14)
[2018-07-07] MEDS ORDERED: MAG HYDROX/AL HYDROX/SIMETH 30 ML UNIT-DOSE CUP PO PRN (21:14)
[2018-07-07] MEDS ORDERED: NICOTINE POLACRILEX 2 MG GUM BUC PRN (21:14)
[2018-07-07] MEDS ORDERED: P-EPHED 60MG/TRIPROLIDI 2.5MG TABLET PO PRN (21:14)
[2018-07-07] MEDS ORDERED: MELATONIN 5 MG TABLETS PO PRN (22:00)
[2018-07-07] MEDS: THIAMINE HCL 100 MG TABLET (FP) PO SCH (23:20)
[2018-07-08] MEDS: diazePAM 5 MG TABLET PO PRN ×4 (00:03→23:00)
[2018-07-08] MEDS: ACETAMINOPHEN 325 MG TABLET (FP) PO PRN ×4 (00:06→22:47)
--- NOTE | 2018-07-08 09:59 | EKG ---
Test Reason : Blood Pressure : / mmHG Vent. Rate : 108 BPM Atrial Rate : 108 BPM P-R Int : 134 ms QRS Dur : 094 ms QT Int : 328 ms P-R-T Axes : 076 081 043 degrees QTc Int : 439 ms SINUS TACHYCARDIA POSSIBLE LEFT ATRIAL ENLARGEMENT BORDERLINE ECG WHEN COMPARED WITH ECG OF 20-MAY-2018 00:34, NO SIGNIFICANT CHANGE WAS FOUND Confirmed by VALENTINA SAMAYOA MD ([id number]) on 07/08/2018 9:59:16 AM Referred By: Confirmed By:VALENTINA SAMAYOA MD
[2018-07-08] MEDS ORDERED: METHADONE HCL 10 MG TABLET (FOR DETOX USE ONLY) PO ONE (10:00)
[2018-07-08] MEDS: PRENATAL VITAMINS W/ FOLIC ACID TABLET (FP) PO SCH (10:19)
[2018-07-08] MEDS: NICOTINE 14 MG/24 HOURS TOPICAL PATCH TD SCH (10:19)
[2018-07-08 10:23] LABS: HEMATOCRIT 39.5 % (32.4-45.2); HEMOGLOBIN 12.9 GM/dL (10.7-15.3); MCH 26.7 pg (25.7-33.7); MCHC 32.7 g/dl (32.0-36.0); MEAN CELL VOLUME 81.6 fl (80-96); MEAN PLT VOLUME 8.1 fl (7.5-11.1); PLATELET COUNT 278 K/MM3 (134-434); RBC 4.85 M/mm3 (3.60-5.2); RDW 13.7 % (11.6-15.6); WHITE BLOOD COUNT 15.8 K/mm3 (4.0-10.0)
[2018-07-08] MEDS: RANITIDINE HCL 150 MG TABLET (FP) PO SCH ×2 (11:00→22:43)
[2018-07-08 12:03] LABS: ALBUMIN 3.4 g/dl (3.4-5.0); ALK PHOS 119 U/L (45-117); ANION GAP 8 MMOL/L (8-16); BILIRUBIN,TOTAL 0.7 mg/dL (0.2-1); BLOOD UREA NITROGEN 8 mg/dL (7-18); CALCIUM 8.9 mg/dL (8.5-10.1); CHLORIDE 97 mmol/L (98-107); CO2 27 mmol/L (21-32); CREATININE 0.6 mg/dL (0.55-1.3); GLUCOSE,RANDOM 74 mg/dL (74-106); POTASSIUM 3.8 mmol/L (3.5-5.1); SGOT/AST 17 U/L (15-37); SGPT/ALT 16 U/L (13-61); SODIUM 132 mmol/L (136-145); TOT PROT 7.8 g/dl (6.4-8.2)
[2018-07-08] MEDS: PENICILLIN V POTASSIUM 500 MG TABLET PO SCH ×2 (12:54→22:43)
[2018-07-08] MEDS ORDERED: PENICILLIN V POTASSIUM 250 MG TABLET PO SCH (14:00)
--- NOTE | 2018-07-08 15:23 | EKG ---
Test Reason : Blood Pressure : / mmHG Vent. Rate : 110 BPM Atrial Rate : 110 BPM P-R Int : 152 ms QRS Dur : 090 ms QT Int : 316 ms P-R-T Axes : 061 075 034 degrees QTc Int : 427 ms SINUS TACHYCARDIA POSSIBLE LEFT ATRIAL ENLARGEMENT NONSPECIFIC ST AND T WAVE ABNORMALITY ABNORMAL ECG WHEN COMPARED WITH ECG OF 07-JUL-2018 23:29, NO SIGNIFICANT CHANGE WAS FOUND Confirmed by YAO JAMES, VALENTINA ([id number]) on 07/08/2018 3:23:37 PM Referred By: Confirmed By:VALENTINA SAMAYOA MD
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
--- NOTE | 2018-07-08 17:01 | PN ---
S COWS - Scale Resting Pulse: 2= [place] 101-120 Sweatin= No chills or Flushing Restless Observation: 1= Difficult to Sit Still Pupil Size: 1= Pupils >than Normal Bone or Joint Aches: 1= Mild Discomfort Runny Nose/ Eye Tearin= Nasal Congestion GI Upset > 30mins: 1= Stomach Cramp Tremor Observation of Outstretched Hands: 1= Tremor [place], Not Seen Yawning Observation: 1= 1-2x During Session Anxiety or Irritability: 1=Feels Anxious/Irritable Goose Flesh Skin: 3=Piloerection COWS Score: 13 [facility] Progress Note (SOAP) Subjective: joint pain body aches muscle pain sweat tremor Objective: 07/08/18 17:01 Vital Signs Temperature 98.4 F 07/08/18 13:45 Pulse Rate 91 H 07/08/18 13:45 Respiratory Rate 18 07/08/18 13:45 Blood Pressure 112/45 07/08/18 13:45 O2 Sat by Pulse Oximetry (%) Laboratory Last Values WBC 15.8 K/mm3 (4.0-10.0) H 07/08/18 07:00 RBC 4.85 M/mm3 (3.60-5.2) 07/08/18 07:00 Hgb 12.9 GM/dL (10.7-15.3) 07/08/18 07:00 Hct 39.5 % (32.4-45.2) 07/08/18 07:00 MCV 81.6 fl (80-96) 07/08/18 07:00 MCH 26.7 pg (25.7-33.7) 07/08/18 07:00 MCHC 32.7 g/dl (32.0-36.0) 07/08/18 07:00 RDW 13.7 % (11.6-15.6) 07/08/18 07:00 Plt Count 278 K/MM3 (134-434) 07/08/18 07:00 MPV 8.1 fl (7.5-11.1) 07/08/18 07:00 Sodium 132 mmol/L (136-145) L 07/08/18 07:00 Potassium 3.8 mmol/L (3.5-5.1) 07/08/18 07:00 Chloride 97 mmol/L (98-107) L 07/08/18 07:00 Carbon Dioxide 27 mmol/L (21-32) 07/08/18 07:00 Anion Gap 8 MMOL/L (8-16) 07/08/18 07:00 BUN 8 mg/dL (7-18) 07/08/18 07:00 Creatinine 0.6 mg/dL (0.55-1.3) 07/08/18 07:00 Creat Clearance w eGFR > 60 (>60) 07/08/18 07:00 Random Glucose 74 mg/dL (74-106) 07/08/18 07:00 Calcium 8.9 mg/dL (8.5-10.1) 07/08/18 07:00 Total Bilirubin 0.7 mg/dL (0.2-1) 07/08/18 07:00 AST 17 U/L (15-37) 07/08/18 07:00 ALT 16 U/L (13-61) 07/08/18 07:00 Alkaline Phosphatase 119 U/L (45-117) H 07/08/18 07:00 Total Protein 7.8 g/dl (6.4-8.2) 07/08/18 07:00 Albumin 3.4 g/dl (3.4-5.0) 07/08/18 07:00 RPR Titer Nonreactive (NONREACTIVE) 07/08/18 07:00 lab noted Assessment: 07/08/18 17:01 withdrawal sx Plan: continue detox
[2018-07-08] MEDS: QUEtiapine FUMARATE 100 MG TABLET (FP) PO SCH (22:43)
[2018-07-08] MEDS: THIAMINE HCL 100 MG TABLET (FP) PO SCH (22:43)
[2018-07-09] MEDS: MENTHOL/PHENOL 1 EACH UD MM PRN (08:48)
[2018-07-09] MEDS ORDERED: METHADONE HCL 5 MG TABLET (FOR DETOX USE ONLY) PO ONE (10:00)
[2018-07-09] MEDS: NICOTINE 14 MG/24 HOURS TOPICAL PATCH TD SCH (10:21)
[2018-07-09] MEDS: PRENATAL VITAMINS W/ FOLIC ACID TABLET (FP) PO SCH (10:21)
[2018-07-09] MEDS: RANITIDINE HCL 150 MG TABLET (FP) PO SCH ×2 (10:21→22:12)
[2018-07-09] MEDS: PENICILLIN V POTASSIUM 500 MG TABLET PO SCH ×2 (10:21→22:12)
--- NOTE | 2018-07-09 13:22 | PN ---
[facility] COWS - Scale Resting Pulse: 2= RI 101-120 Sweatin= Chills/Flushing Restless Observation: 0= Sits Still Pupil Size: 0= Normal to Room Light Bone or Joint Aches: 0= None Runny Nose/ Eye Tearin= None GI Upset > 30mins: 0= None Tremor Observation of Outstretched Hands: 0= None Yawning Observation: 0= None Anxiety or Irritability: 0= None Goose Flesh Skin: 0=Smooth Skin COWS Score: 3 [facility] Progress Note (SOAP) Subjective: PATIENT RESTING IN BED. SLEEPY. +CHILLS. Objective: 07/09/18 13:20 Vital Signs Temperature 99.1 F 07/09/18 09:25 Pulse Rate 114 H 07/09/18 09:25 Respiratory Rate 16 07/09/18 09:25 Blood Pressure 100/56 L 07/09/18 09:25 O2 Sat by Pulse Oximetry (%) Laboratory Tests 07/08/18 07/08/18 07/08/18 07:00 07:00 07:00 WBC 15.8 H RBC 4.85 Hgb 12.9 Hct 39.5 MCV 81.6 MCH 26.7 MCHC 32.7 RDW 13.7 Plt Count 278 MPV 8.1 Sodium 132 L Potassium 3.8 Chloride 97 L Carbon Dioxide 27 Anion Gap 8 BUN 8 Creatinine 0.6 Creat Clearance w eGFR > 60 Random Glucose 74 Calcium 8.9 Total Bilirubin 0.7 AST 17 ALT 16 Alkaline Phosphatase 119 H Total Protein 7.8 Albumin 3.4 RPR Titer Nonreactive PE: SKIN: INTACT, +CHILLS ALERT AND ORIENTED, SLEEPY CAR S1S2 RESP CTA BL Assessment: 07/09/18 13:21 WITHDRAWAL SYNDOME ELEVATED WBC Plan: CONTINUE DETOX PER PROTOCOL REPEAT CBC IN AM [facility] PENDING
[2018-07-09] MEDS: diazePAM 5 MG TABLET PO PRN ×2 (14:04→22:11)
--- NOTE | 2018-07-09 16:58 | PN ---
Psychiatric Progress Note Vital Signs: Vital Signs Period Temp Pulse Resp BP Sys/[place] Pulse Ox Last 24 Hr 97.7 F-102.2 F 110-114 16-20 98-105/56-70 Date of Session: 07/09/18 Chief Complaint:: "I can't sleep." HPI: Pt. admitted to for opiate dependence. ROS: Anemia Current Medications: Active Medications Generic Name Dose Route Start Last Admin Trade Name Freq PRN Reason Stop Dose Admin Acetaminophen 650 mg 07/07/18 21:14 07/08/18 22:47 Tylenol - PO 650 mg Q4H PRN Administration PAIN OR FEVER Al Hydroxide/Mg Hydroxide 30 ml 07/07/18 21:14 Mylanta Oral Suspension - PO Q6H PRN DYSPEPSIA Diazepam 10 mg 07/07/18 21:14 07/09/18 14:04 Valium - PO 07/10/18 21:13 10 mg Q4H PRN Administration WITHDRAWAL(CONT SUBST) Eucalyptus/Menthol/Phenol/Sorbitol 1 each 07/07/18 21:14 07/09/18 08:48 Cepastat Lozenge - MM 1 each Q4H PRN Administration SORE THROAT Guaifenesin 10 ml 07/07/18 21:14 Robitussin Dm - PO Q6H PRN COUGH Loperamide HCl 4 mg 07/07/18 21:14 Imodium - PO Q6H PRN DIARRHEA Magnesium Citrate 300 ml 07/07/18 21:14 Citroma - PO Q48H PRN CONSTIPATION Magnesium Hydroxide 30 ml 07/07/18 21:14 Milk Of Magnesia - PO DAILY PRN CONSTIPATION Melatonin 5 mg 07/07/18 22:00 Melatonin PO HS PRN INSOMNIA Methadone HCl 5 mg 07/12/18 06:00 Dolophine - PO 07/12/18 06:01 ONCE@0600 ONE Methadone HCl 15 mg 07/10/18 10:00 Dolophine - PO 07/10/18 10:01 ONCE ONE Methadone HCl 10 mg 07/11/18 10:00 Dolophine - PO 07/11/18 10:01 ONCE ONE Nicotine 14 mg 07/08/18 10:00 07/09/18 10:21 Nicoderm Patch - TD Not Given DAILY HOLLY Nicotine Polacrilex 2 mg 07/07/18 21:14 Nicorette Gum - BUC Q2H PRN NICOTINE REPLACEMENT RX Penicillin V Potassium 500 mg 07/08/18 12:45 07/09/18 10:21 Pen Vee K - PO 500 mg BID HOLLY Administration Multivit/Folic Acid/Iron 1 tab 07/08/18 10:00 07/09/18 10:21 Vitamins (Sjr) - PO 1 tab DAILY HOLLY Administration Pseudoephedrine/Triprolidine 1 combo 07/07/18 21:14 Actifed - PO TID PRN NASAL CONGESTION Quetiapine Fumarate 100 mg 07/08/18 22:00 07/08/18 22:43 Seroquel - PO 100 mg HS HOLLY Administration Ranitidine HCl 150 mg 07/08/18 10:15 07/09/18 10:21 Zantac - PO 150 mg BID HOLLY Administration Thiamine HCl 100 mg 07/07/18 22:00 07/08/18 22:43 Vitamin B1 - PO 100 mg HS HOLLY Administration Medication(s) Change(s): Yes. Will add Ambien 5mg qhs prn. Current Side Effect: No Lab tests ordered: No Lab tests reviewed: Yes Provider note:: Chart reviewed. Pt. c/o difficulty sleeping. Patient has accepted ambien in the past with favorable effect. Will order ambien 5mg qhs prn. Benefits and side effects discussed. Pt made aware of the risk of parasomnia. Verbal consent given. Total face to face time:: 25 Mental Status Exam - Mental Status Exam Alert and Oriented to: Time, Place, Person Cognitive Function: Good Patient Appearance: Well Groomed Mood: Euthymic Affect: Mood Congruent Patient Behavior: Appropriate, Cooperative Speech Pattern: Appropriate Voice Loudness: Normal Thought Process: Intact, Goal Oriented Thought Disorder: Not Present Hallucinations: Denies Suicidal Ideation: Denies Homicidal Ideation: Denies Insight/Judgement: Poor Sleep: Poorly Appetite: Fair Muscle strength/Tone: Normal Gait/Station: Normal Psychiatric Treatment Plan - Problem List (1) Substance induced mood disorder Current Visit: Yes (2) Opioid dependence with withdrawal Current Visit: Yes (3) Nicotine dependence Current Visit: Yes Qualifiers: Nicotine product type: cigarettes Substance use status: in withdrawal Qualified Code(s): F17.213 - Nicotine dependence, cigarettes, with withdrawal (4) Substance-induced sleep disorder Current Visit: Yes
[2018-07-09] MEDS: ZOLPIDEM TARTRATE 5 MG TABLET PO PRN (22:12)
[2018-07-09] MEDS: THIAMINE HCL 100 MG TABLET (FP) PO SCH (22:12)
[2018-07-09] MEDS: QUEtiapine FUMARATE 100 MG TABLET (FP) PO SCH (22:12)
[2018-07-10] MEDS ORDERED: METHADONE HCL 5 MG TABLET (FOR DETOX USE ONLY) PO ONE (10:00)
[2018-07-10] MEDS: PENICILLIN V POTASSIUM 500 MG TABLET PO SCH ×2 (10:03→22:03)
[2018-07-10] MEDS: PRENATAL VITAMINS W/ FOLIC ACID TABLET (FP) PO SCH (10:03)
[2018-07-10] MEDS: NICOTINE 14 MG/24 HOURS TOPICAL PATCH TD SCH (10:03)
[2018-07-10] MEDS: RANITIDINE HCL 150 MG TABLET (FP) PO SCH ×2 (10:03→22:04)
[2018-07-10] MEDS: diazePAM 5 MG TABLET PO PRN (10:03)
[2018-07-10] MEDS: MENTHOL/PHENOL 1 EACH UD MM PRN (11:50)
--- NOTE | 2018-07-10 13:09 | PN ---
[facility] Progress Note (SOAP) Subjective: Sore throat, irritability, interrupted sleep Objective: 07/10/18 13:08 Vital Signs 07/10/18 07/10/18 06:00 10:16 Temperature 97.9 F 98.2 F Pulse Rate 114 H 99 H Respiratory 16 18 Rate Blood Pressure 112/58 L 91/52 L Laboratory Last Values WBC 15.8 K/mm3 (4.0-10.0) H 07/08/18 07:00 RBC 4.85 M/mm3 (3.60-5.2) 07/08/18 07:00 Hgb 12.9 GM/dL (10.7-15.3) 07/08/18 07:00 Hct 39.5 % (32.4-45.2) 07/08/18 07:00 MCV 81.6 fl (80-96) 07/08/18 07:00 MCH 26.7 pg (25.7-33.7) 07/08/18 07:00 MCHC 32.7 g/dl (32.0-36.0) 07/08/18 07:00 RDW 13.7 % (11.6-15.6) 07/08/18 07:00 Plt Count 278 K/MM3 (134-434) 07/08/18 07:00 MPV 8.1 fl (7.5-11.1) 07/08/18 07:00 Sodium 132 mmol/L (136-145) L 07/08/18 07:00 Potassium 3.8 mmol/L (3.5-5.1) 07/08/18 07:00 Chloride 97 mmol/L (98-107) L 07/08/18 07:00 Carbon Dioxide 27 mmol/L (21-32) 07/08/18 07:00 Anion Gap 8 MMOL/L (8-16) 07/08/18 07:00 BUN 8 mg/dL (7-18) 07/08/18 07:00 Creatinine 0.6 mg/dL (0.55-1.3) 07/08/18 07:00 Creat Clearance w eGFR > 60 (>60) 07/08/18 07:00 Random Glucose 74 mg/dL (74-106) 07/08/18 07:00 Calcium 8.9 mg/dL (8.5-10.1) 07/08/18 07:00 Total Bilirubin 0.7 mg/dL (0.2-1) 07/08/18 07:00 AST 17 U/L (15-37) 07/08/18 07:00 ALT 16 U/L (13-61) 07/08/18 07:00 Alkaline Phosphatase 119 U/L (45-117) H 07/08/18 07:00 Total Protein 7.8 g/dl (6.4-8.2) 07/08/18 07:00 Albumin 3.4 g/dl (3.4-5.0) 07/08/18 07:00 RPR Titer Nonreactive (NONREACTIVE) 07/08/18 07:00 Lab noted-repeat CBC pending Assessment: 07/10/18 13:09 Withdrawal sx Strep throat Plan: Continue detox Continue PCN
[2018-07-10] MEDS ORDERED: MICONAZOLE NITRATE 2% VAGINAL CREAM 45 GM TUBE VG SCH (22:00)
[2018-07-10] MEDS: THIAMINE HCL 100 MG TABLET (FP) PO SCH (22:03)
[2018-07-10] MEDS: QUEtiapine FUMARATE 100 MG TABLET (FP) PO SCH (22:04)
[2018-07-10] MEDS: ZOLPIDEM TARTRATE 5 MG TABLET PO PRN (22:09)
[2018-07-10] MEDS: ACYCLOVIR 400 MG TABLET PO SCH (23:51)
--- NOTE | 2018-07-11 07:26 | PN ---
[facility] Progress Note Note: LATE ENTRY SEEN OVERNIGHT FOR C/O "A SORE IN MY VAGINA" PT STATES SHE FEELS A SORE IN HER VAGINA. HAS BEEN PRESENT FOR THE PAST 2 DAYS. DENIES BURNING, ITCHING, FEVER, CHILLS. INITIALLY DENIES HX/O GENITAL HERPES BUT LATER RECANTED STATEMENT STATING SHE WAS STARTED ON ACYCLOVIR EARLIER THIS YEAR FOR A VAGINAL SORE. SINGLE UCLER LIKE CHANCRE APPROX 0.3 CM X 0.3 CM TO LEFT LABIA MINORA. Vital Signs - 24 hr 07/10/18 07/10/18 07/10/18 10:16 13:57 19:29 Temperature 98.2 F 98.9 F 98.1 F Pulse Rate 99 H 98 H 106 H Respiratory 18 18 16 Rate Blood Pressure 91/52 L 102/53 L 104/53 L 07/10/18 07/11/18 07/11/18 22:00 00:30 03:30 Temperature 98.2 F Pulse Rate 115 H Respiratory 16 18 16 Rate Blood Pressure 112/64 07/11/18 06:00 Temperature 98.1 F Pulse Rate 101 H Respiratory 18 Rate Blood Pressure 102/53 L Laboratory Tests 07/08/18 07/08/18 07/08/18 07:00 07:00 07:00 WBC 15.8 H RBC 4.85 Hgb 12.9 Hct 39.5 MCV 81.6 MCH 26.7 MCHC 32.7 RDW 13.7 Plt Count 278 MPV 8.1 Sodium 132 L Potassium 3.8 Chloride 97 L Carbon Dioxide 27 Anion Gap 8 BUN 8 Creatinine 0.6 Creat Clearance w eGFR > 60 Random Glucose 74 Calcium 8.9 Total Bilirubin 0.7 AST 17 ALT 16 Alkaline Phosphatase 119 H Total Protein 7.8 Albumin 3.4 RPR Titer Nonreactive RPR NOTED NON REACTIVE A-HERPES VAGINALIS P- START ZOVIRAX 400 MG PO BID CONT TO MONITOR CLINICALLY CLIENT DOES NOT FURTHER DISCUSSION OR TESTING. RELUCTANT TO SHARE INFORMATION ABOUT CURRENT ISSUE.
[2018-07-11] MEDS ORDERED: METHADONE HCL 10 MG TABLET (FOR DETOX USE ONLY) PO ONE (10:00)
[2018-07-11] MEDS: RANITIDINE HCL 150 MG TABLET (FP) PO SCH ×2 (10:05→22:20)
[2018-07-11] MEDS: PENICILLIN V POTASSIUM 500 MG TABLET PO SCH (10:06)
[2018-07-11] MEDS: NICOTINE 14 MG/24 HOURS TOPICAL PATCH TD SCH (10:06)
[2018-07-11] MEDS: PRENATAL VITAMINS W/ FOLIC ACID TABLET (FP) PO SCH (10:06)
[2018-07-11] MEDS: ACYCLOVIR 400 MG TABLET PO SCH ×2 (11:00→22:20)
--- NOTE | 2018-07-11 17:12 | PN ---
[facility] Progress Note (SOAP) Subjective: feeling better no tremor less sweat sleep better at night + strep throat + herpes II Objective: 07/11/18 17:10 Vital Signs Temperature 98.1 F 07/11/18 16:50 Pulse Rate 119 H 07/11/18 16:50 Respiratory Rate 16 07/11/18 16:50 Blood Pressure 125/90 07/11/18 16:50 O2 Sat by Pulse Oximetry (%) Laboratory Last Values WBC 15.8 K/mm3 (4.0-10.0) H 07/08/18 07:00 RBC 4.85 M/mm3 (3.60-5.2) 07/08/18 07:00 Hgb 12.9 GM/dL (10.7-15.3) 07/08/18 07:00 Hct 39.5 % (32.4-45.2) 07/08/18 07:00 MCV 81.6 fl (80-96) 07/08/18 07:00 MCH 26.7 pg (25.7-33.7) 07/08/18 07:00 MCHC 32.7 g/dl (32.0-36.0) 07/08/18 07:00 RDW 13.7 % (11.6-15.6) 07/08/18 07:00 Plt Count 278 K/MM3 (134-434) 07/08/18 07:00 MPV 8.1 fl (7.5-11.1) 07/08/18 07:00 Sodium 132 mmol/L (136-145) L 07/08/18 07:00 Potassium 3.8 mmol/L (3.5-5.1) 07/08/18 07:00 Chloride 97 mmol/L (98-107) L 07/08/18 07:00 Carbon Dioxide 27 mmol/L (21-32) 07/08/18 07:00 Anion Gap 8 MMOL/L (8-16) 07/08/18 07:00 BUN 8 mg/dL (7-18) 07/08/18 07:00 Creatinine 0.6 mg/dL (0.55-1.3) 07/08/18 07:00 Creat Clearance w eGFR > 60 (>60) 07/08/18 07:00 Random Glucose 74 mg/dL (74-106) 07/08/18 07:00 Calcium 8.9 mg/dL (8.5-10.1) 07/08/18 07:00 Total Bilirubin 0.7 mg/dL (0.2-1) 07/08/18 07:00 AST 17 U/L (15-37) 07/08/18 07:00 ALT 16 U/L (13-61) 07/08/18 07:00 Alkaline Phosphatase 119 U/L (45-117) H 07/08/18 07:00 Total Protein 7.8 g/dl (6.4-8.2) 07/08/18 07:00 Albumin 3.4 g/dl (3.4-5.0) 07/08/18 07:00 RPR Titer Nonreactive (NONREACTIVE) 07/08/18 07:00 lab noted Assessment: 07/11/18 17:10 mild withdrawal sx Plan: medically supervised detox discuss commucable disease prevention
[2018-07-11] MEDS: THIAMINE HCL 100 MG TABLET (FP) PO SCH (22:20)
[2018-07-11] MEDS: QUEtiapine FUMARATE 100 MG TABLET (FP) PO SCH (22:20)
[2018-07-11] MEDS: ZOLPIDEM TARTRATE 5 MG TABLET PO PRN (22:29)
[2018-07-12] MEDS ORDERED: METHADONE HCL 5 MG TABLET (FOR DETOX USE ONLY) PO ONE (06:00)
[2018-07-12] MEDS: NICOTINE 14 MG/24 HOURS TOPICAL PATCH TD SCH (09:13)
[2018-07-12] MEDS: PRENATAL VITAMINS W/ FOLIC ACID TABLET (FP) PO SCH (09:13)
[2018-07-12] MEDS: ACYCLOVIR 400 MG TABLET PO SCH (09:13)
[2018-07-12] MEDS: RANITIDINE HCL 150 MG TABLET (FP) PO SCH (09:13)
[2018-07-12 09:20] VITALS: BP 110/66; PULSE 99; TEMP 98.1
--- NOTE | 2018-07-12 13:39 | DS ---
[facility] Detox Discharge Summary Admission Date: 07/07/18 Discharge Date: 07/12/18 - History Present History: Opioid Dependence Additional Comments: Hx heroin use disorder since age 16. Nicotine use disorder since age 14. Admitted with c/o opiate withdrawal symptoms. - Physical Exam Results Vital Signs: Vital Signs Temperature 98.1 F 07/12/18 09:19 Pulse Rate 99 H 07/12/18 09:19 Respiratory Rate 18 07/12/18 09:19 Blood Pressure 110/66 07/12/18 09:19 O2 Sat by Pulse Oximetry (%) Pertinent Admission Physical Exam Findings: Admitted with opiate withdrawal symptoms. Laboratory Tests 07/08/18 07/08/18 07/08/18 07:00 07:00 07:00 WBC 15.8 H RBC 4.85 Hgb 12.9 Hct 39.5 MCV 81.6 MCH 26.7 MCHC 32.7 RDW 13.7 Plt Count 278 MPV 8.1 Sodium 132 L Potassium 3.8 Chloride 97 L Carbon Dioxide 27 Anion Gap 8 BUN 8 Creatinine 0.6 Creat Clearance w eGFR > 60 Random Glucose 74 Calcium 8.9 Total Bilirubin 0.7 AST 17 ALT 16 Alkaline Phosphatase 119 H Total Protein 7.8 Albumin 3.4 RPR Titer Nonreactive Labs reviewed - Treatment Hospital Course: Detox Protocol Followed, Detoxed Safely, Responded well, Discharged Condition Good - Medication Discharge Medications: Ambulatory Orders Quetiapine Fumarate [Seroquel -] 100 mg PO HS #30 tablet 05/20/18 Zolpidem Tartrate [Ambien] 15 mg PO HS 07/07/18 Acyclovir [Zovirax -] 400 mg PO BID #60 tablet 07/11/18 Penicillin V Potassium [Pen Vee K -] 500 mg PO BID #60 tablet 07/11/18 Ranitidine [Zantac -] 150 mg PO BID #60 tablet 07/11/18 - Diagnosis (1) Fever Status: Acute Qualifiers: Fever type: unspecified Qualified Code(s): R50.9 - Fever, unspecified (2) Nicotine dependence Status: Chronic Qualifiers: Nicotine product type: cigarettes Substance use status: uncomplicated Qualified Code(s): F17.210 - Nicotine dependence, cigarettes, uncomplicated (3) Opioid dependence with withdrawal Status: Acute (4) Dehydration Status: Acute - AMA Did Patient Leave Against Medical Advice: No
== END 2018-07-12 09:30 | disposition home or self-care (01) | DRG 897 ==
LOC: YASAS 14:36 → Y6N 22:05
PROC: HZ2ZZZZ Detoxification Services for Substance Abuse Treatment (ICD-10-PCS; principal; 2018-07-07)
DX: F11.23 Opioid dependence with withdrawal (principal); F14.20 Cocaine dependence, uncomplicated; F19.282 Other psychoactive substance dependence with psychoactive substance-induced sleep disorder; F13.230 Sedative, hypnotic or anxiolytic dependence with withdrawal, uncomplicated; F12.20 Cannabis dependence, uncomplicated; F17.210 Nicotine dependence, cigarettes, uncomplicated; F19.24 Other psychoactive substance dependence with psychoactive substance-induced mood disorder; E86.0 Dehydration; J02.0 Streptococcal pharyngitis; B95.1 Streptococcus, group B, as the cause of diseases classified elsewhere; R50.9 Fever, unspecified; A60.04 Herpesviral vulvovaginitis
CPT/HCPCS: 36415; 80053; 85027; 86593; 87070; 87077; 87430; 93005; 93010

== ENCOUNTER 2019-02-15 16:37 | Inpatient (IN) | payer BC ==
[2019-02-15 17:11] VITALS: BMI 22.8
--- NOTE | 2019-02-15 18:43 | HP ---
COWS - Scale Resting Pulse: 1= [place] 81-100 Sweatin= Chills/Flushing Restless Observation: 1= Difficult to Sit Still Pupil Size: 2= Moderately Dilated Bone or Joint Aches: 1= Mild Discomfort Runny Nose/ Eye Tearin= Runny Nose/Eyes GI Upset > 30mins: 2= Nausea/Diarrhea Tremor Observation: 2= Slight Tremor Visible Yawning Observation: 1= 1-2x During Session Anxiety or Irritability: 0= None Goose Flesh Skin: 0=Smooth Skin COWS Score: 13 CIWA Score - Admission Criteria OASAS Guidelines: Admission for Medically Managed Detox: Requires at least one of the followin. CIWA greater than 12 2. Seizures within the past 24 hours 3. Delirium tremens within the past 24 hours 4. Hallucinations within the past 24 hours 5. Acute intervention needed for co occurring medical disorder 6. Acute intervention needed for co occurring psychiatric disorder 7. Severe withdrawal that cannot be handled at a lower level of care (continued vomiting, continued diarrhea, abnormal vital signs) requiring intravenous medication and/or fluids 8. Admission [facility] Chief Complaint: heroin withdrawal symptoms Allergies/Adverse Reactions: Allergies Allergy/AdvReac Type Severity Reaction Status Date / Time No Known Allergies Allergy Verified 02/15/19 17:05 History of Present Illness: Patient is a 18 yo female with hx of nicotine and heroin dependence is here for detox d/t withdrawal symptoms. Reports hx of heroin use disorder since age 16 via intranasal. Reports occasional use of heroin. Last detox June 2018, reports was able to maintain seven months sobriety, relapse two weeks ago, interested in vivitrol upon competing detox. Reports prior treatment with Buprenorphine for heroin use. Utox positive for chely,bzo, FEN, MOP, Oxy. Denies hx seizures, blackouts or overdose. Reports hx of anemia, depression and insomnia (seroquel and ambien). Denies SI/HI. Others' Prescriptions Patient Name: Eron Acosta Date: 2000 Address: [address] [place] [address] Sex: Female Rx Written Rx Dispensed Drug Quantity Days Supply Prescriber Name 12/24/2018 12/24/2018 buprenorphine-naloxone 8-2 mg sl tablet 7 7 Jaycob Garcia MD 11/23/2018 11/23/2018 buprenorphine-naloxone 8-2 mg sl tablet 7 7 Jaycob Garcia MD 08/30/2018 08/30/2018 buprenorphine-naloxone 8-2 mg sl tablet 7 Jaycob Acevedo MD 08/23/2018 08/23/2018 buprenorphine-naloxone 8-2 mg sl tablet Jaycob Harper MD 08/02/2018 08/02/2018 buprenorphine-naloxone 8-2 mg sl tablet 7 7 Jaycob Garcia MD Exam Limitations: No Limitations - Review of Systems Constitutional: Chills, Loss of Appetite, Changes in sleep EENT: reports: Nose Congestion Respiratory: reports: No Symptoms reported Cardiac: reports: No Symptoms Reported GI: reports: Constipated, Nausea, Poor Appetite, Poor Fluid Intake, Abdominal cramping : reports: No Symptoms Reported Musculoskeletal: reports: Other (+spasms b/l lower extremities) Integumentary: reports: No Symptoms Reported Neuro: reports: Headache, Tremors Endocrine: reports: No Symptoms Reported Hematology: reports: Anemia Psychiatric: reports: Orientated x3, Anxious Other Systems: Reviewed and Negative Patient History - Patient Medical History Hx Anemia: Yes (Not on medication) Hx Asthma: No Hx Chronic Obstructive Pulmonary Disease (COPD): No Hx Cancer: No Hx Cardiac Disorders: No Hx Congestive Heart Failure: No Hx Hypertension: No Hx Hypercholesterolemia: No Hx Pacemaker: No HX Cerebrovascular Accident: No Hx Seizures: No Hx Dementia: No Hx Diabetes: No Hx Gastrointestinal Disorders: No Hx Liver Disease: No Hx Genitourinary Disorders: No Hx Sexually Transmitted Disorders: No Hx Renal Disease (ESRD): No Hx Thyroid Disease: No Hx Human Immunodeficiency Virus (HIV): No (Negative 2017) Hx Hepatitis C: No Hx Depression: Yes (Seroquel) Hx Suicide Attempt: No Hx Bipolar Disorder: No Hx Schizophrenia: No - Patient Surgical History Past Surgical History: No Hx Neurologic Surgery: No Hx Cataract Extraction: No Hx Cardiac Surgery: No Hx Lung Surgery: No Hx Breast Surgery: No Hx Breast Biopsy: No Hx Abdominal Surgery: No Hx Appendectomy: No Hx Cholecystectomy: No Hx Genitourinary Surgery: No Hx Section: No Hx Orthopedic Surgery: No Hx Hysterectomy: No Anesthesia Reaction: No - PPD History Previous Implant?: No Documented Results: Negative w/proof Date: 02/28/18 Results: NEGATIVE PPD to be Administered?: No - Reproductive History Patient is a Female of Child Bearing Age (11 -55 yrs old): Yes Last Menstrual Period: 11/19/18 Patient : No - Smoking Cessation Smoking history: Current every day smoker Have you smoked in the past 12 months: Yes Aproximately how many cigarettes per day: 10 Cigars Per Day: 0 Hx Chewing Tobacco Use: No Initiated information on smoking cessation: Yes 'Breaking Loose' booklet given: 02/15/19 - Substance & Tx. History Hx Alcohol Use: No Hx Substance Use: Yes Substance Use Type: Heroin Hx Substance Use Treatment: Yes ([facility] June 2018) - Substances abused Heroin Substance route: Inhalation Frequency: Daily Amount used: 8 bags Age of first use: 16 Date of last use: 02/15/19 Family Disease History - Family Disease History Family Disease History: [place]: Grandparent (dementia), Respiratory: Sister (Asthma) , Other: Grandparent, Father (alive), Mother (alive and well) Admission Physical Exam S - Vital Signs Vital Signs: Vital Signs - 24 hr 02/15/19 17:01 Temperature 98 F Pulse Rate 84 Respiratory 18 Rate Blood Pressure 101/61 - Physical General Appearance: Yes: Appropriately Dressed, Mild Distress, Thin, Tremorous, Anxious HEENTM: Yes: EOMI, Hearing grossly Normal, Normal ENT Inspection, Normocephalic , Normal Voice, GINO, Pharynx Normal, Tm's normal, Rhinorrhea, Other (dry mucous membranes) Respiratory: Yes: Chest Non-Tender, Lungs Clear, Normal Breath Sounds, No Respiratory Distress, No Accessory Muscle Use Neck: Yes: Within Normal Limits Breast: Yes: Breast Exam Deferred Cardiology: Yes: Regular Rhythm, Regular Rate Abdominal: Yes: Normal Bowel Sounds, Flat, Soft, Tenderness (midepigastric on deep palpation) Genitourinary: Yes: Within Normal Limits Back: Yes: Normal Inspection Musculoskeletal: Yes: full range of Motion, Gait Steady, Pelvis Stable Extremities: Yes: Normal Capillary Refill, Normal Inspection, Normal Range of Motion Neurological: Yes: fusing machine tender II-XII NML intact, Fully Oriented, Alert, Motor Strength 5/5, Depressed Affect Integumentary: Yes: Normal Color, Warm, Diaphoresis Lymphatic: Yes: Within Normal Limits - Diagnostic (1) At risk for dehydration due to poor fluid intake Current Visit: Yes Status: Acute (2) Insomnia Current Visit: Yes Status: Acute (3) Opioid dependence with withdrawal Current Visit: Yes Status: Acute (4) Anemia Current Visit: Yes Status: Chronic Qualifiers: Anemia type: unspecified type Qualified Code(s): D64.9 - Anemia, unspecified (5) Nicotine dependence Current Visit: Yes Status: Chronic Qualifiers: Nicotine product type: cigarettes Substance use status: uncomplicated Qualified Code(s): F17.210 - Nicotine dependence, cigarettes, uncomplicated Cleared for Admission S - Detox or Rehab [facility] Level of Care: Medically Managed Detox Regimen/Protocol: Methadone Breathalyzer - Breathalyzer Breathalyzer: 0 POC Urine test - Result Urine Test Results: Negative - NO line present Urine Drug Screen - Test Device Lot number: [id number] Expiration date: 09/17/20 - Control Is test valid?: Yes - Results Drug screen NEGATIVE: Yes Urine drug screen results: CHELY-Cocaine, FEN-Fentanyl, MOP-Opiates, OXY-Oxycodone , BZO-Benzodiazepines Inpatient Rehab Admission - Rehab Decision to Admit Inpatient rehab admission?: No
[2019-02-15] MEDS ORDERED: cloNIDine HCL 0.1 MG TABLET PO PRN (19:10)
[2019-02-15] MEDS ORDERED: MAG HYDROX/AL HYDROX/SIMETH 30 ML UNIT-DOSE CUP PO PRN (19:12)
[2019-02-15] MEDS ORDERED: ACETAMINOPHEN 325 MG TABLET (FP) PO PRN (19:12)
[2019-02-15] MEDS ORDERED: DICYCLOMINE HCL 10 MG CAPSULE PO PRN (19:12)
[2019-02-15] MEDS ORDERED: NICOTINE POLACRILEX 2 MG GUM BUC PRN (19:12)
[2019-02-15] MEDS ORDERED: MELATONIN 5 MG TABLETS PO PRN (19:12)
[2019-02-15] MEDS ORDERED: IBUPROFEN 400 MG TABLET (FP) PO PRN (19:12)
[2019-02-15] MEDS ORDERED: MENTHOL/PHENOL 1 EACH UD MM PRN (19:12)
[2019-02-15] MEDS ORDERED: MAGNESIUM CITRATE 300 ML BOTTLE PO PRN (19:12)
[2019-02-15] MEDS ORDERED: METHOCARBAMOL 500 MG TABLET PO PRN (19:12)
[2019-02-15] MEDS ORDERED: BISMUTH SUBSALICYLATE 524 MG/30 ML UD PO PRN (19:12)
[2019-02-15] MEDS ORDERED: MAGNESIUM HYDROX 2400MG/30ML ORAL SUSPENSION 30 ML CUP PO PRN (19:12)
[2019-02-15] MEDS ORDERED: METHADONE HCL 10 MG TABLET (FOR DETOX USE ONLY) PO ONE ×2 (19:32→23:00)
[2019-02-15] MEDS: diazePAM 5 MG TABLET PO PRN (19:38)
[2019-02-15] MEDS ORDERED: QUEtiapine FUMARATE 50 MG TABLET PO ONE (22:00)
[2019-02-15] MEDS: THIAMINE HCL 100 MG TABLET (FP) PO SCH (22:25)
[2019-02-15] MEDS: RANITIDINE HCL 150 MG TABLET (FP) PO SCH (22:25)
[2019-02-16 00:50] LABS: EPI CELLS 14.4 /HPF (0-5/HPF); PH,URINE 5.5 (5.0-8.0); URINE APPEARANCE CLOUDY; URINE BACTERIA 6897.4 /hpf (NEGATIVE); URINE BILIRUBIN NEGATIVE (NEGATIVE); URINE CASTS 13 /lpf (0-8); URINE COLOR DK YELLOW; URINE GLUCOSE (UA) NEGATIVE (NEGATIVE); URINE KETONE TRACE (NEGATIVE); URINE LEUK ESTERASE 2+ (NEGATIVE); URINE NITRITE POSITIVE (NEGATIVE); URINE PROTEIN TRACE (NEGATIVE); URINE WBC 232 /hpf (0-5)
[2019-02-16 03:28] LABS: URINE RBC 5 /hpf (0-4)
[2019-02-16] MEDS: RANITIDINE HCL 150 MG TABLET (FP) PO SCH ×2 (10:00→22:09)
[2019-02-16] MEDS: diazePAM 5 MG TABLET PO PRN ×3 (10:00→22:09)
[2019-02-16] MEDS: PRENATAL VITAMINS W/ FOLIC ACID TABLET (FP) PO SCH (10:00)
[2019-02-16] MEDS ORDERED: METHADONE HCL 10 MG TABLET (FOR DETOX USE ONLY) PO ONE (10:00)
[2019-02-16] MEDS: NICOTINE 14 MG/24 HOURS TOPICAL PATCH TD SCH (10:01)
--- NOTE | 2019-02-16 11:37 | PN ---
BHS COWS - Scale Resting Pulse: 0= [place] 80 or Below Sweatin=Flushed/Facial Moisture Restless Observation: 1= Difficult to Sit Still Pupil Size: 0= Normal to Room Light Bone or Joint Aches: 2= Severe Diffuse Aches Runny Nose/ Eye Tearin= Nasal Congestion GI Upset > 30mins: 0= None Tremor Observation of Outstretched Hands: 1= Tremor [place], Not Seen Yawning Observation: 2= >3x During Session Anxiety or Irritability: 2=Irritable/Anxious Goose Flesh Skin: 0=Smooth Skin COWS Score: 11 BHS Progress Note (SOAP) Subjective: irritable agitation tired burning sensation when go to bathroom to urinate body aches Objective: 02/16/19 11:35 Vital Signs Temperature 97.9 F 02/16/19 09:13 Pulse Rate 65 02/16/19 09:13 Respiratory Rate 16 02/16/19 09:13 Blood Pressure 100/52 L 02/16/19 09:13 O2 Sat by Pulse Oximetry (%) Laboratory Tests 02/15/19 02/15/19 23:10 23:10 Urine Color Dk yellow Urine Appearance Cloudy Urine pH 5.5 Ur Specific [place] 1.030 Urine Protein Trace Urine Glucose (UA) Negative Urine Ketones Trace H Urine Blood Trace Urine Nitrite Positive H Urine Bilirubin Negative Urine Urobilinogen 1.0 Ur Leukocyte Esterase 2+ H Urine WBC (Auto) 232 Urine RBC (Auto) 5 Urine Casts (Auto) 13 U Epithel Cells (Auto) 14.4 Urine Bacteria (Auto) 6897.4 POC Urine HCG, Qual Negative rest of labs pending repeat u/a and c&s aaox3 ambulating no acute distress Assessment: 02/16/19 11:36 withdrawal sx Plan: continue detox increase fluids bactrim ds bid x 7 days ordered repeat ua/culture pending labs
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
[2019-02-16 17:21] LABS: URINE APPEARANCE TURBID; URINE BILIRUBIN SMALL (NEGATIVE); URINE COLOR DK YELLOW; URINE GLUCOSE (UA) NEGATIVE (NEGATIVE); URINE KETONE TRACE (NEGATIVE)
[2019-02-16 17:22] LABS: URINE LEUK ESTERASE 3+ (NEGATIVE); URINE NITRITE POSITIVE (NEGATIVE); URINE PROTEIN 1+ (NEGATIVE)
[2019-02-16] MEDS: QUEtiapine FUMARATE 100 MG TABLET (FP) PO SCH (22:09)
[2019-02-16] MEDS: THIAMINE HCL 100 MG TABLET (FP) PO SCH (22:09)
[2019-02-16] MEDS: SULFAMETHOXAZOLE/TRIMETHOPRIM 800MG/160MG D.S. TABLET PO SCH (22:09)
[2019-02-16] MEDS: SUVOREXANT 10 MG TABLET PO PRN (22:12)
[2019-02-17] MEDS ORDERED: METHADONE HCL 10 MG TABLET (FOR DETOX USE ONLY) PO ONE (10:00)
[2019-02-17] MEDS: SULFAMETHOXAZOLE/TRIMETHOPRIM 800MG/160MG D.S. TABLET PO SCH ×2 (10:05→22:22)
[2019-02-17] MEDS: PRENATAL VITAMINS W/ FOLIC ACID TABLET (FP) PO SCH (10:05)
[2019-02-17] MEDS: RANITIDINE HCL 150 MG TABLET (FP) PO SCH ×2 (10:05→22:22)
[2019-02-17] MEDS: diazePAM 5 MG TABLET PO SCH ×2 (10:06→22:22)
[2019-02-17] MEDS: NICOTINE 14 MG/24 HOURS TOPICAL PATCH TD SCH (10:06)
--- NOTE | 2019-02-17 10:11 | PN ---
BHS COWS - Scale Resting Pulse: 0= [place] 80 or Below Sweatin= Chills/Flushing Restless Observation: 0= Sits Still Pupil Size: 0= Normal to Room Light Bone or Joint Aches: 1= Mild Discomfort Runny Nose/ Eye Tearin= Nasal Congestion GI Upset > 30mins: 0= None Tremor Observation of Outstretched Hands: 2= Slight Tremor Visible Yawning Observation: 2= >3x During Session Anxiety or Irritability: 1=Feels Anxious/Irritable Goose Flesh Skin: 0=Smooth Skin COWS Score: 8 BHS Progress Note (SOAP) Subjective: sweats shakes interrupted sleep body aches tired Objective: 02/17/19 10:11 Vital Signs Temperature 98.1 F 02/17/19 10:06 Pulse Rate 65 02/17/19 10:06 Respiratory Rate 18 02/17/19 10:06 Blood Pressure 100/51 L 02/17/19 10:06 O2 Sat by Pulse Oximetry (%) Laboratory Tests 02/15/19 02/15/19 02/16/19 23:10 23:10 15:00 Urine Color Dk yellow Dk yellow Urine Appearance Cloudy Turbid Urine pH 5.5 6.0 Ur Specific [place] 1.030 1.032 Urine Protein Trace 1+ H Urine Glucose (UA) Negative Negative Urine Ketones Trace H Trace H Urine Blood Trace Trace Urine Nitrite Positive H Positive H Urine Bilirubin Negative Small Urine Urobilinogen 1.0 1.0 Ur Leukocyte Esterase 2+ H 3+ H Urine WBC (Auto) 232 Urine RBC (Auto) 5 No Result Required. Urine Casts (Auto) 13 U Epithel Cells (Auto) 14.4 Urine Bacteria (Auto) 6897.4 POC Urine HCG, Qual Negative aaox3 ambulating no acute distress pending labs continue with current antibiotic as ordered Assessment: 02/17/19 10:18 withdrawal sx Plan: continue detox increase fluids
[2019-02-17 11:11] LABS: ALK PHOS 85 U/L (45-117); ANION GAP 4 MMOL/L (8-16); BILIRUBIN,TOTAL 0.8 mg/dL (0.2-1); BLOOD UREA NITROGEN 13 mg/dL (7-18); CALCIUM 8.9 mg/dL (8.5-10.1); CHLORIDE 106 mmol/L (98-107); CO2 30 mmol/L (21-32); CREATININE 0.8 mg/dL (0.55-1.3); GLUCOSE,RANDOM 79 mg/dL (74-106); POTASSIUM 3.6 mmol/L (3.5-5.1); SGOT/AST 9 U/L (15-37); SGPT/ALT 14 U/L (13-61); SODIUM 140 mmol/L (136-145); TOT PROT 6.8 g/dl (6.4-8.2)
[2019-02-17 11:12] LABS: BASO % 0.6 % (0-2.0); EOS % 4.6 % (0-4.5); HEMATOCRIT 36.1 % (32.4-45.2); HEMOGLOBIN 11.6 GM/dL (10.7-15.3); LYMPH % 45.4 % (8-40); MCH 26.5 pg (25.7-33.7); MCHC 32.1 g/dl (32.0-36.0); MEAN CELL VOLUME 82.4 fl (80-96); MEAN PLT VOLUME 7.8 fl (7.5-11.1); MONO % 6.6 % (3.8-10.2); NEUT % 42.8 % (42.8-82.8); PLATELET COUNT 342 K/MM3 (134-434); RBC 4.38 M/mm3 (3.60-5.2); RDW 15.7 % (11.6-15.6); WHITE BLOOD COUNT 7.3 K/mm3 (4.0-10.0)
[2019-02-17] MEDS: diazePAM 5 MG TABLET PO PRN ×2 (14:35→18:52)
--- NOTE | 2019-02-17 17:28 | PN ---
[facility] Progress Note Note: Vital Signs Temperature 99.1 F 02/17/19 14:09 Pulse Rate 80 02/17/19 14:09 Respiratory Rate 18 02/17/19 14:09 Blood Pressure 95/50 L 02/17/19 14:09 O2 Sat by Pulse Oximetry (%) nausea and ongoing vomiting one time dose tigan fluids as tolerated continue to monitor
[2019-02-17] MEDS ORDERED: TRIMETHOBENZAMIDE HCL 200MG/2ML INJ IM ONE (17:45)
--- NOTE | 2019-02-17 21:15 | PN ---
[facility] Progress Note Note: Vital Signs Temperature 99.0 F 02/17/19 17:40 Pulse Rate 97 H 02/17/19 17:40 Respiratory Rate 16 02/17/19 17:40 Blood Pressure 92/64 02/17/19 17:40 O2 Sat by Pulse Oximetry (%) Patient continues with nausea and vomiting zofran PRN continue to monitor if vomiting continue patient to go be evaluated at [facility]
[2019-02-17] MEDS: ONDANSETRON *ODT* 4 MG TABLET SL PRN (21:18)
[2019-02-17] MEDS: SUVOREXANT 10 MG TABLET PO PRN (22:21)
[2019-02-17] MEDS: QUEtiapine FUMARATE 100 MG TABLET (FP) PO SCH (22:22)
[2019-02-17] MEDS: THIAMINE HCL 100 MG TABLET (FP) PO SCH (22:22)
[2019-02-18] MEDS: ONDANSETRON *ODT* 4 MG TABLET SL PRN ×2 (04:34→22:16)
[2019-02-18] MEDS ORDERED: diazePAM 5 MG TABLET PO SCH (06:00)
[2019-02-18] MEDS: ACETAMINOPHEN 325 MG TABLET (FP) PO PRN ×2 (06:12→11:37)
[2019-02-18] MEDS: TRIMETHOBENZAMIDE HCL 200MG/2ML INJ IM PRN (09:41)
[2019-02-18] MEDS ORDERED: METHADONE HCL 10 MG TABLET (FOR DETOX USE ONLY) PO ONE (10:00)
[2019-02-18 10:12] LABS: HEMATOCRIT 40.4 % (32.4-45.2); HEMOGLOBIN 12.9 GM/dL (10.7-15.3); MCH 26.3 pg (25.7-33.7); MCHC 32.1 g/dl (32.0-36.0); MEAN CELL VOLUME 81.9 fl (80-96); MEAN PLT VOLUME 8.1 fl (7.5-11.1); PLATELET COUNT 396 K/MM3 (134-434); RBC 4.93 M/mm3 (3.60-5.2); RDW 15.5 % (11.6-15.6); WHITE BLOOD COUNT 11.4 K/mm3 (4.0-10.0)
[2019-02-18 10:19] LABS: ALBUMIN 3.9 g/dl (3.4-5.0); ALK PHOS 109 U/L (45-117); ANION GAP 9 MMOL/L (8-16); BILIRUBIN,TOTAL 0.9 mg/dL (0.2-1); BLOOD UREA NITROGEN 10 mg/dL (7-18); CALCIUM 9.6 mg/dL (8.5-10.1); CHLORIDE 103 mmol/L (98-107); CO2 26 mmol/L (21-32); GLUCOSE,RANDOM 112 mg/dL (74-106); POTASSIUM 4.6 mmol/L (3.5-5.1); SGOT/AST 19 U/L (15-37); SGPT/ALT 16 U/L (13-61); SODIUM 138 mmol/L (136-145); TOT PROT 8.5 g/dl (6.4-8.2)
[2019-02-18] MEDS: RANITIDINE HCL 150 MG TABLET (FP) PO SCH ×2 (11:36→22:14)
[2019-02-18] MEDS: SULFAMETHOXAZOLE/TRIMETHOPRIM 800MG/160MG D.S. TABLET PO SCH ×2 (11:37→22:13)
[2019-02-18] MEDS: PRENATAL VITAMINS W/ FOLIC ACID TABLET (FP) PO SCH (11:38)
[2019-02-18] MEDS: NICOTINE 14 MG/24 HOURS TOPICAL PATCH TD SCH (11:38)
--- NOTE | 2019-02-18 16:52 | PN ---
BHS COWS - Scale Resting Pulse: 0= [place] 80 or Below Sweatin= Chills/Flushing Restless Observation: 0= Sits Still Pupil Size: 0= Normal to Room Light Bone or Joint Aches: 2= Severe Diffuse Aches Runny Nose/ Eye Tearin= None GI Upset > 30mins: 3= Vomiting/Diarrhea Tremor Observation of Outstretched Hands: 2= Slight Tremor Visible Yawning Observation: 1= 1-2x During Session Anxiety or Irritability: 2=Irritable/Anxious Goose Flesh Skin: 0=Smooth Skin COWS Score: 11 BHS Progress Note (SOAP) Subjective: Anxious, Vomiting, Tremors, Body Aches. Objective: PATIENT A & O X 2 (UNCERTAIN ABOUT CURRENT DAY / DATE). IN NO ACUTE DISTRESS. PATIENT FEBRILE EARLIER ON IN DAY; HOWEVER, PATIENT IS AFEBRILE AT THIS TIME. 02/18/19 16:48 Vital Signs Temperature 97.9 F 02/18/19 14:24 Pulse Rate 68 02/18/19 14:24 Respiratory Rate 02/18/19 14:24 Blood Pressure 104/58 L 02/18/19 14:24 O2 Sat by Pulse Oximetry (%) Laboratory Tests 02/15/19 02/15/19 02/16/19 23:10 23:10 15:00 WBC RBC Hgb Hct MCV MCH MCHC RDW Plt Count MPV Absolute Neuts (auto) Neutrophils % Lymphocytes % Monocytes % Eosinophils % Basophils % Nucleated RBC % Sodium Potassium Chloride Carbon Dioxide Anion Gap BUN Creatinine Creat Clearance w eGFR Random Glucose Calcium Total Bilirubin AST ALT Alkaline Phosphatase Total Protein Albumin Urine Color Dk yellow Dk yellow Urine Appearance Cloudy Turbid Urine pH 5.5 6.0 Ur Specific [place] 1.030 1.032 Urine Protein Trace 1+ H Urine Glucose (UA) Negative Negative Urine Ketones Trace H Trace H Urine Blood Trace Trace Urine Nitrite Positive H Positive H Urine Bilirubin Negative Small Urine Urobilinogen 1.0 1.0 Ur Leukocyte Esterase 2+ H 3+ H Urine WBC (Auto) 232 Urine RBC (Auto) 5 No Result Required. Urine Casts (Auto) 13 U Epithel Cells (Auto) 14.4 Urine Bacteria (Auto) 6897.4 POC Urine HCG, Qual Negative RPR Titer 02/17/19 02/17/19 02/17/19 07:00 07:00 07:00 WBC 7.3 RBC 4.38 Hgb 11.6 Hct 36.1 MCV 82.4 MCH 26.5 MCHC 32.1 RDW 15.7 H D Plt Count 342 D MPV 7.8 Absolute Neuts (auto) 3.1 Neutrophils % 42.8 Lymphocytes % 45.4 H Monocytes % 6.6 Eosinophils % 4.6 H Basophils % 0.6 Nucleated RBC % 0 Sodium 140 Potassium 3.6 Chloride 106 Carbon Dioxide 30 Anion Gap 4 L BUN 13 Creatinine 0.8 Creat Clearance w eGFR 91.45 Random Glucose 79 Calcium 8.9 Total Bilirubin 0.8 AST 9 L ALT 14 Alkaline Phosphatase 85 Total Protein 6.8 Albumin 3.0 L Urine Color Urine Appearance Urine pH Ur Specific [place] Urine Protein Urine Glucose (UA) Urine Ketones Urine Blood Urine Nitrite Urine Bilirubin Urine Urobilinogen Ur Leukocyte Esterase Urine WBC (Auto) Urine RBC (Auto) Urine Casts (Auto) U Epithel Cells (Auto) Urine Bacteria (Auto) POC Urine HCG, Qual RPR Titer Nonreactive 02/18/19 02/18/19 07:00 07:00 WBC 11.4 H RBC 4.93 Hgb 12.9 Hct 40.4 MCV 81.9 MCH 26.3 MCHC 32.1 RDW 15.5 Plt Count 396 MPV 8.1 Absolute Neuts (auto) Neutrophils % Lymphocytes % Monocytes % Eosinophils % Basophils % Nucleated RBC % Sodium 138 Potassium 4.6 Chloride 103 Carbon Dioxide 26 Anion Gap 9 BUN 10 Creatinine 1.0 Creat Clearance w eGFR 70.69 Random Glucose 112 H Calcium 9.6 Total Bilirubin 0.9 AST 19 ALT 16 Alkaline Phosphatase 109 Total Protein 8.5 H Albumin 3.9 Urine Color Urine Appearance Urine pH Ur Specific [place] Urine Protein Urine Glucose (UA) Urine Ketones Urine Blood Urine Nitrite Urine Bilirubin Urine Urobilinogen Ur Leukocyte Esterase Urine WBC (Auto) Urine RBC (Auto) Urine Casts (Auto) U Epithel Cells (Auto) Urine Bacteria (Auto) POC Urine HCG, Qual RPR Titer LABS NOTED. 02/18/19 16:50 Assessment: 02/18/19 16:49 WITHDRAWAL SYMPTOMS. URINARY TRACT INFECTION. LEUKOCYTOSIS (PATIENT CURRENTLY BEING TREATED FOR URINARY TRACT INFECTION). Plan: CONTINUE DETOX. INCREASE DAILY PO FLUID / WATER INTAKE. CONTINUE BACTRIM DS PO BID FOR UTI. PATIENT SCHEDULED FOR D/C FROM DETOX TOMORROW AM. HOWEVER, PATIENT STILL EXPERIENCING SIGNIFICANT WITHDRAWAL / DETOX SYMPTOMS. PATIENT TO BE EVALUATED MEDICALLY BY COVERING MEDICAL PROVIDER TOMORROW AM PRIOR TO FINAL DETERMINATION OF DISCHARGE FROM DETOX UNIT.
[2019-02-18] MEDS ORDERED: diazePAM 5 MG TABLET PO ONE (19:51)
[2019-02-18] MEDS: THIAMINE HCL 100 MG TABLET (FP) PO SCH (22:13)
[2019-02-18] MEDS: QUEtiapine FUMARATE 100 MG TABLET (FP) PO SCH (22:13)
[2019-02-18] MEDS: SUVOREXANT 10 MG TABLET PO PRN (22:13)
[2019-02-19] MEDS ORDERED: METHADONE HCL 5 MG TABLET (FOR DETOX USE ONLY) PO ONE (06:00)
[2019-02-19] MEDS: ONDANSETRON *ODT* 4 MG TABLET SL PRN (07:13)
[2019-02-19] MEDS: TRIMETHOBENZAMIDE HCL 200MG/2ML INJ IM PRN (07:56)
--- NOTE | 2019-02-19 09:47 | DS ---
[facility] Detox Discharge Summary Admission Date: 02/15/19 Discharge Date: 02/19/19 - History Present History: Cocaine Dependence, Opioid Dependence, Sedative Dependence Additional Comments: Counselor met with client to discuss discharge planning. Eron is declining after care. Clinician discussed the importance of increased 12 step participation for recovery. Pt has completed her detox protocol. C/o N/V x2days. Denies any abdominal pain at this time. Pt is discharged to [facility] ER for evaluation and monitoring of N/ V and if cleared will be discharged from [facility] to home. Pt is currently been treated for UTI with Bactrim po. Verbal report given to Dr. Chacon. Pertinent Past History: Heroin use disorder - Physical Exam Results Vital Signs: Vital Signs Temperature 98.6 F 02/19/19 06:11 Pulse Rate 70 02/19/19 06:11 Respiratory Rate 18 02/19/19 06:11 Blood Pressure 96/58 L 02/19/19 06:11 O2 Sat by Pulse Oximetry (%) Laboratory Last Values WBC 11.4 K/mm3 (4.0-10.0) H 02/18/19 07:00 RBC 4.93 M/mm3 (3.60-5.2) 02/18/19 07:00 Hgb 12.9 GM/dL (10.7-15.3) 02/18/19 07:00 Hct 40.4 % (32.4-45.2) 02/18/19 07:00 MCV 81.9 fl (80-96) 02/18/19 07:00 MCH 26.3 pg (25.7-33.7) 02/18/19 07:00 MCHC 32.1 g/dl (32.0-36.0) 02/18/19 07:00 RDW 15.5 % (11.6-15.6) 02/18/19 07:00 Plt Count 396 K/MM3 (134-434) 02/18/19 07:00 MPV 8.1 fl (7.5-11.1) 02/18/19 07:00 Absolute Neuts (auto) 3.1 K/mm3 (1.5-8.0) 02/17/19 07:00 Neutrophils % 42.8 % (42.8-82.8) 02/17/19 07:00 Lymphocytes % 45.4 % (8-40) H 02/17/19 07:00 Monocytes % 6.6 % (3.8-10.2) 02/17/19 07:00 Eosinophils % 4.6 % (0-4.5) H 02/17/19 07:00 Basophils % 0.6 % (0-2.0) 02/17/19 07:00 Nucleated RBC % 0 % (0-0) 02/17/19 07:00 Sodium 138 mmol/L (136-145) 02/18/19 07:00 Potassium 4.6 mmol/L (3.5-5.1) 02/18/19 07:00 Chloride 103 mmol/L (98-107) 02/18/19 07:00 Carbon Dioxide 26 mmol/L (21-32) 02/18/19 07:00 Anion Gap 9 MMOL/L (8-16) 02/18/19 07:00 BUN 10 mg/dL (7-18) 02/18/19 07:00 Creatinine 1.0 mg/dL (0.55-1.3) 02/18/19 07:00 Creat Clearance w eGFR 70.69 (>60) 02/18/19 07:00 Random Glucose 112 mg/dL (74-106) H 02/18/19 07:00 Calcium 9.6 mg/dL (8.5-10.1) 02/18/19 07:00 Total Bilirubin 0.9 mg/dL (0.2-1) 02/18/19 07:00 AST 19 U/L (15-37) 02/18/19 07:00 ALT 16 U/L (13-61) 02/18/19 07:00 Alkaline Phosphatase 109 U/L (45-117) 02/18/19 07:00 Total Protein 8.5 g/dl (6.4-8.2) H 02/18/19 07:00 Albumin 3.9 g/dl (3.4-5.0) 02/18/19 07:00 Urine Color Dk yellow 02/16/19 15:00 Urine Appearance Turbid 02/16/19 15:00 Urine pH 6.0 (5.0-8.0) 02/16/19 15:00 Ur Specific [place] 1.032 (1.010-1.035) 02/16/19 15:00 Urine Protein 1+ (NEGATIVE) H 02/16/19 15:00 Urine Glucose (UA) Negative (NEGATIVE) 02/16/19 15:00 Urine Ketones Trace (NEGATIVE) H 02/16/19 15:00 Urine Blood Trace (NEGATIVE) 02/16/19 15:00 Urine Nitrite Positive (NEGATIVE) H 02/16/19 15:00 Urine Bilirubin Small (NEGATIVE) 02/16/19 15:00 Urine Urobilinogen 1.0 mg/dL (0.2-1.0) 02/16/19 15:00 Ur Leukocyte Esterase 3+ (NEGATIVE) H 02/16/19 15:00 Urine WBC (Auto) 232 /hpf (0-5) 02/15/19 23:10 Urine RBC (Auto) No Result Required. 02/16/19 15:00 Urine Casts (Auto) 13 /lpf (0-8) 02/15/19 23:10 U Epithel Cells (Auto) 14.4 /HPF (0-5/HPF) 02/15/19 23:10 Urine Bacteria (Auto) 6897.4 /hpf (NEGATIVE) 02/15/19 23:10 POC Urine HCG, Qual Negative 02/15/19 23:10 RPR Titer Nonreactive (NONREACTIVE) 02/17/19 07:00 Noted. Pertinent Admission Physical Exam Findings: withdrawal symptoms - Treatment Hospital Course: Detox Protocol Followed, Detoxed Safely, Responded well (Pt is sent to [facility] ED for evaluation and monitoring of N/V. Verbal report given to Dr. Chacon.) - Medication Discharge Medications: Ambulatory Orders Quetiapine Fumarate [Seroquel -] 100 mg PO HS #30 tablet 05/20/18 Zolpidem Tartrate [Ambien] 15 mg PO HS 07/07/18 Ranitidine [Zantac -] 150 mg PO BID #60 tablet 07/11/18 Sulfamethoxazole/Trimethoprim [Bactrim Ds -] 1 tab PO BID 7 Days #14 tablet 01/04 - Diagnosis (1) At risk for dehydration due to poor fluid intake Current Visit: Yes Status: Acute (2) Leukocytosis Current Visit: Yes Status: Acute (3) Urinary tract infection Current Visit: Yes Status: Acute (4) Nicotine dependence Current Visit: Yes Status: Chronic Qualifiers: Nicotine product type: cigarettes Substance use status: uncomplicated Qualified Code(s): F17.210 - Nicotine dependence, cigarettes, uncomplicated (5) Cannabis dependence Current Visit: No Status: Chronic (6) Cocaine dependence Current Visit: No Status: Chronic (7) Sedative, hypnotic or anxiolytic dependence, uncomplicated Current Visit: No Status: Chronic - AMA Did Patient Leave Against Medical Advice: No
[2019-02-19 09:54] VITALS: BP 120/76; PULSE 63; TEMP 98.2
== END 2019-02-19 10:15 | disposition short-term general hospital (02) | DRG 897 ==
LOC: YASAS 16:37 → Y6N 19:01
PROVIDERS: ADMIT Surgery; ATTEND Surgery
PROC: HZ2ZZZZ Detoxification Services for Substance Abuse Treatment (ICD-10-PCS; principal; 2019-02-15)
DX: F11.23 Opioid dependence with withdrawal (principal); F14.20 Cocaine dependence, uncomplicated; F19.282 Other psychoactive substance dependence with psychoactive substance-induced sleep disorder; N39.0 Urinary tract infection, site not specified; F13.230 Sedative, hypnotic or anxiolytic dependence with withdrawal, uncomplicated; F12.20 Cannabis dependence, uncomplicated; F17.210 Nicotine dependence, cigarettes, uncomplicated; F19.24 Other psychoactive substance dependence with psychoactive substance-induced mood disorder; F32.9 Major depressive disorder, single episode, unspecified; D64.9 Anemia, unspecified; D72.829 Elevated white blood cell count, unspecified; R11.2 Nausea with vomiting, unspecified; Z91.89 Other specified personal risk factors, not elsewhere classified; K21.9 Gastro-esophageal reflux disease without esophagitis
CPT/HCPCS: 36415; 80053; 81003; 81025; 85025; 85027; 86593; 87086; 87186; Q0162

== ENCOUNTER 2019-02-19 10:30 | Emergency (ER) | payer BC ==
[2019-02-19 10:44] VITALS: BP 105/65; PULSE 76; TEMP 99.2; BMI 23.0
[2019-02-19] MEDS ORDERED: ACETAMINOPHEN 1000 MG/100 ML VIAL (NON FORMULARY) IVPB ONE (11:01)
[2019-02-19] MEDS ORDERED: FAMOTIDINE 20 MG/50 ML IVPB 20 MG/50 ML MG IVPB ONE ×2 (11:01→11:19)
[2019-02-19] MEDS ORDERED: ONDANSETRON 4 MG/2 ML VIAL IVPB ONE ×2 (11:01→16:31)
[2019-02-19] MEDS ORDERED: SODIUM CHLORIDE 1,000 ML IV STA ×2 (11:01→13:21)
--- NOTE | 2019-02-19 11:07 | PDOC ---
History of Present Illness - General Chief Complaint: Nausea/Vomiting Stated Complaint: VOMITING Time Seen by Provider: 02/19/19 10:48 History Source: Patient Exam Limitations: No Limitations - History of Present Illness Initial Comments: 02/19/19 11:02 18 year old female with history of polysubstance abuse including heroine discharged from [facility] for nausea and vomiting x 2 days. Pt reported snorting heroine x 4 years daily. Stated last use 4 days ago. Then entered heroine detox 4 days ago, but pt wanted to cut cold turkey and not be placed on methadone program. For last two days, has had multiple episodes of nausea and vomiting. no diarrhea or abdominal pain. Has reported some acid reflux like symptoms. Denies vaginal bleeding. Stated that she has had decreased PO intake. Pt was sent from [address] [place] [address]. Past History - Past Medical History Allergies/Adverse Reactions: Allergies Allergy/AdvReac Type Severity Reaction Status Date / Time No Known Allergies Allergy Verified 02/15/19 17:05 Home Medications: Ambulatory Orders Lorazepam [Ativan] 1 mg PO BID PRN #4 tablet MDD 2 02/19/19 Metoclopramide HCl [Reglan] 10 mg PO Q8H PRN #20 tablet 02/19/19 Ondansetron [Zofran Odt -] 4 mg SL TID PRN #21 od.tablet 02/19/19 Anemia: Yes (Not on medication) Asthma: No Cancer: No Cardiac Disorders: No CVA: No COPD: No CHF: No Dementia: No Diabetes: No GI Disorders: No Disorders: No HTN: No Hypercholesterolemia: No Kidney Stones: No Liver Disease: No Seizures: No Thyroid Disease: No - Surgical History Abdominal Surgery: No Appendectomy: No Cardiac Surgery: No Cholecystectomy: No Lung Surgery: No Neurologic Surgery: No Orthopedic Surgery: No - Reproductive History PID: No - Suicide/Smoking/Psychosocial Hx Smoking History: Current every day smoker Have you smoked in the past 12 months: Yes Number of Cigarettes Smoked Daily: 10 Cigars Per Day: 0 Information on smoking cessation initiated: No 'Breaking Loose' booklet given: 02/15/19 Hx Alcohol Use: No Drug/Substance Use Hx: Yes Substance Use Type: Heroin Hx Substance Use Treatment: Yes ([facility] June 2018) Review of Systems - Review of Systems Able to Perform ROS?: Yes Comments:: 02/19/19 11:06 GENERAL/CONSTITUTIONAL: [No fever or chills. No weakness. No weight change.] HEAD, EYES, EARS, NOSE AND THROAT: [No change in vision. No ear pain or discharge. No sore throat.] CARDIOVASCULAR: [No chest pain or shortness of breath.] RESPIRATORY: [No cough, wheezing, or hemoptysis.] GASTROINTESTINAL: [No diarrhea or constipation. No rectal bleeding.] +nausea and vomiting. GENITOURINARY: [No dysuria, frequency, or change in urination.] MUSCULOSKELETAL: [No joint or muscle swelling or pain. No neck or back pain.] SKIN AND BREASTS: [No rash or easy bruising.] NEUROLOGIC: [No headache, vertigo, loss of consciousness, or loss of sensation.] PSYCHIATRIC: [No depression or anxiety.] ENDOCRINE: [No increased thirst. No abnormal weight change.] HEMATOLOGIC/LYMPHATIC: [No anemia, easy bleeding, or history of blood clots.] ALLERGIC/IMMUNOLOGIC: [No hives or skin allergy. No latex allergy.] *Physical Exam - Vital Signs Last Vital Signs Temp Pulse Resp BP Pulse Ox 99.2 F 76 18 105/65 100 02/19/19 10:43 02/19/19 10:43 02/19/19 10:43 02/19/19 10:43 02/19/19 10:43 - Physical Exam Comments: 02/19/19 11:07 GENERAL: Awake, alert, and fully oriented, in no acute distress HEAD: No signs of trauma EYES: EOMI, sclera anicteric, conjunctiva clear ENT: Auricles normal inspection, hearing grossly normal, nares patent, dry mucous membranes NECK: Normal ROM, supple, no lymphadenopathy, JVD, or masses LUNGS: Breath sounds equal, clear to auscultation bilaterally. No wheezes, and no crackles HEART: Regular rate and rhythm, normal S1 and S2, no murmurs, rubs or gallops ABDOMEN: Soft, nontender, No guarding, no rebound. No masses EXTREMITIES: Normal range of motion, no edema. No clubbing or cyanosis. No cords, erythema, or tenderness NEUROLOGICAL: Cranial nerves II through XII grossly intact. Normal speech SKIN: Warm, Dry, normal turgor, no rashes or lesions noted. Heart Score/ECG Review #1 ECG reviewed & interpreted by me at: 11:40 02/19/19 12:08 NSR 59, +LVH, concave upward CLEMENCIA V4-V6, ?CLEMENCIA V2-V3, TWI V2, QTC 439 msec, normal axis, normal intervals ED Treatment Course - LABORATORY CBC & Chemistry Diagram: 02/19/19 11:27 02/19/19 11:27 Medical Decision Making - Medical Decision Making 02/19/19 11:07 Vital Signs Temp Pulse Resp BP Pulse Ox 99.2 F 76 18 105/65 100 02/19/19 10:43 02/19/19 10:43 02/19/19 10:43 02/19/19 10:43 02/19/19 10:43 I suspect patient likely has viral syndrome versus narcotic withdrawal. We'll obtain labs trial Zofran and GERD medications and reassess. Otherwise, the patient nontoxic appearing but does appear to be dehydrated. 02/19/19 13:28 CBC, BMP 02/19/19 11:27 02/19/19 11:27 CMP Sodium 137 mmol/L (136-145) 02/19/19 11:27 Potassium 4.0 mmol/L (3.5-5.1) 02/19/19 11:27 Chloride 100 mmol/L (98-107) 02/19/19 11:27 Carbon Dioxide 26 mmol/L (21-32) 02/19/19 11:27 Anion Gap 10 MMOL/L (8-16) 02/19/19 11:27 BUN 16 mg/dL (7-18) 02/19/19 11:27 Creatinine 1.0 mg/dL (0.55-1.3) 02/19/19 11:27 Creat Clearance w eGFR 70.69 (>60) 02/19/19 11:27 Random Glucose 84 mg/dL (74-106) 02/19/19 11:27 Calcium 9.8 mg/dL (8.5-10.1) 02/19/19 11:27 Magnesium 2.5 mg/dL (1.8-2.4) H 02/19/19 11:27 Total Bilirubin 1.4 mg/dL (0.2-1) H 02/19/19 11:27 AST 29 U/L (15-37) 02/19/19 11:27 ALT 18 U/L (13-61) 02/19/19 11:27 Alkaline Phosphatase 108 U/L (45-117) 02/19/19 11:27 Troponin I < 0.02 ng/ml (0.00-0.05) 02/19/19 11:27 Total Protein 8.6 g/dl (6.4-8.2) H 02/19/19 11:27 Albumin 4.0 g/dl (3.4-5.0) 02/19/19 11:27 Lipase 270 U/L (73-393) 02/19/19 11:27 Serum , Qual Negative 02/19/19 11:27 Pt did endorse a nonexertional chest discomfort and some SOB while waiting in the ED. ECG demonstates high voltages (which is old), but CLEMENCIA V2-V6 with J point elevation (which is new). Troponin is negative. Case was discussed with DR. Negron. He will come and evaluate patient. 02/19/19 16:[address] Negron. He reports that this is ECG is unchanged from prior. The patient feels better after receiving anti-emetics and ativan. The patient reports feeling less anxoius. I suspect the patient may have components of mild narcotic withdrawal. however, pt feels more comfortable taking cab home. She has tolerated PO. Will d/c with reglan and zofran (Pt will not be taking methadone at home) 02/19/19 17:24 Pt is also concerned for potential gonorrhea and chlamydia. Will have her call back for the results. *DC/Admit/Observation/Transfer Diagnosis at time of Disposition: Vomiting Qualifiers: Vomiting type: unspecified Vomiting Intractability: non-intractable Nausea presence: with nausea Qualified Code(s): R11.2 - Nausea with vomiting, unspecified - Discharge Dispostion Disposition: HOME Condition at time of disposition: Improved Decision to Admit order: No - Prescriptions Prescriptions: Lorazepam [Ativan] 1 mg PO BID PRN #4 tablet MDD 2 PRN Reason: Vomiting Metoclopramide HCl [Reglan] 10 mg PO Q8H PRN #20 tablet PRN Reason: Nausea Ondansetron [Zofran Odt -] 4 mg SL TID PRN #21 od.tablet PRN Reason: Nausea - Referrals Referrals: Jaycob Garcia MD [Primary Care Provider] - - Patient Instructions Printed Discharge Instructions: DI for Nausea -- Adult, DI for Drug or Alcohol Withdrawal Additional Instructions: You likely have some elements of narcotic withdrawal and gastrointestinal upset. For your nausea, I strongly advise that you use reglan 10 mg every 8 hours and/ or 4 mg zofran every 8 hours as needed. Drink plenty of fluids and rest. It may take several days before you feel better. If you have uncontrollable vomiting, please return to the ER. Otherwise, please call to schedule your primary care physician. - Post Discharge Activity
[2019-02-19] MEDS ORDERED: ONDANSETRON 4 MG/2 ML VIAL ONE ×2 (11:18→16:52)
[2019-02-19] MEDS ORDERED: ACETAMINOPHEN INJECTION 100 ML IVPB ONE (11:18)
[2019-02-19] MEDS ORDERED: METOCLOPRAMIDE HCL INJECTION 10 MG/2 ML VIAL IVPUSH ONE (12:03)
[2019-02-19 12:05] LABS: BASO % 0.7 % (0-2.0); EOS % 0.1 % (0-4.5); HEMATOCRIT 43.5 % (32.4-45.2); HEMOGLOBIN 13.7 GM/dL (10.7-15.3); LYMPH % 11.4 % (8-40); MCHC 31.6 g/dl (32.0-36.0); MEAN CELL VOLUME 82.3 fl (80-96); MEAN PLT VOLUME 8.3 fl (7.5-11.1); MONO % 3.2 % (3.8-10.2); NEUT % 84.6 % (42.8-82.8); PLATELET COUNT 369 K/MM3 (134-434); RBC 5.29 M/mm3 (3.60-5.2); RDW 15.7 % (11.6-15.6); WHITE BLOOD COUNT 11.8 K/mm3 (4.0-10.0)
[2019-02-19 12:21] LABS: ALK PHOS 108 U/L (45-117); ANION GAP 10 MMOL/L (8-16); BILIRUBIN,TOTAL 1.4 mg/dL (0.2-1); BLOOD UREA NITROGEN 16 mg/dL (7-18); CALCIUM 9.8 mg/dL (8.5-10.1); CHLORIDE 100 mmol/L (98-107); CO2 26 mmol/L (21-32); GLUCOSE,RANDOM 84 mg/dL (74-106); MAGNESIUM 2.5 mg/dL (1.8-2.4); SGOT/AST 29 U/L (15-37); SGPT/ALT 18 U/L (13-61); SODIUM 137 mmol/L (136-145); TOT PROT 8.6 g/dl (6.4-8.2)
[2019-02-19] MEDS ORDERED: METOCLOPRAMIDE HCL INJECTION 10 MG/2 ML VIAL ONE (12:50)
[2019-02-19 13:03] LABS: LIPASE 270 U/L (73-393)
[2019-02-19] MEDS ORDERED: LORazepam 2 MG/ML SDV VIAL ONE (13:55)
[2019-02-19] MEDS ORDERED: LORazepam 1 MG TABLET PO ONE (15:55)
[2019-02-19] MEDS ORDERED: LORazepam 0.5 MG TABLET ONE (15:56)
--- NOTE | 2019-02-20 08:54 | EKG ---
Test Reason : Blood Pressure : / mmHG Vent. Rate : 059 BPM Atrial Rate : 059 BPM P-R Int : 122 ms QRS Dur : 098 ms QT Int : 444 ms P-R-T Axes : 061 076 068 degrees QTc Int : [address] ELEVATION, CONSIDER EARLY REPOLARIZATION BORDERLINE ECG WHEN COMPARED WITH ECG OF 08-JUL-2018 09:35, VENT. RATE HAS DECREASED BY 51 BPM NONSPECIFIC T WAVE ABNORMALITY NO LONGER EVIDENT IN INFERIOR LEADS NONSPECIFIC T WAVE ABNORMALITY NO LONGER EVIDENT IN LATERAL LEADS Confirmed by ECHO JAMES, KARY ([id number]) on 02/20/2019 8:53:42 AM Referred By: Confirmed By:KARY DODGE MD
== END 2019-02-19 17:50 | disposition home or self-care (01) ==
LOC: JER 10:30
PROC: 3E0337Z Introduction of Electrolytic and Water Balance Substance into Peripheral Vein, Percutaneous Approach (ICD-10-PCS; principal; 2019-02-19)
PROC: 3E033GC Introduction of Other Therapeutic Substance into Peripheral Vein, Percutaneous Approach (ICD-10-PCS; 2019-02-19)
PROC: 3E033GC Introduction of Other Therapeutic Substance into Peripheral Vein, Percutaneous Approach (ICD-10-PCS; 2019-02-19)
PROC: 3E033GC Introduction of Other Therapeutic Substance into Peripheral Vein, Percutaneous Approach (ICD-10-PCS; 2019-02-19)
PROC: 3E033NZ Introduction of Analgesics, Hypnotics, Sedatives into Peripheral Vein, Percutaneous Approach (ICD-10-PCS; 2019-02-19)
DX: B34.9 Viral infection, unspecified (principal); F11.23 Opioid dependence with withdrawal; Z11.3 Encounter for screening for infections with a predominantly sexual mode of transmission
CPT/HCPCS: 36415; 71045-TC-FY; 80053; 82550; 82553; 83690; 83735; 84484; 84703; 85025; 87491; 87591; 93005; 93010; 99283-25; J0131; J7030

== ENCOUNTER 2019-03-03 13:20 | Emergency (ER) | payer BC ==
[2019-03-03] MEDS ORDERED: AZITHROMYCIN 500 MG TABLET PO ONE (13:32)
--- NOTE | 2019-03-03 13:32 | PDOC ---
Rapid Medical Evaluation Medical Evaluation: Allergies Allergy/AdvReac Type Severity Reaction Status Date / Time No Known Allergies Allergy Verified 02/15/19 17:05 I have performed a brief in-person evaluation of this patient. The patient presents with a chief complaint of: Was called to return to ED for tx of positive chlamydia; mother also wants her treated for gonorrhea though testing was negative as states patient has been promiscuous since then; denies rash, vaginal discharge; patient not comfortable with ceftriaxone IM I have ordered the following: Azithromycin, GC culture (patient would rather get tested again then get IM shot) The patient will proceed to the ED for further evaluation. 03/03/19 13:30
[2019-03-03 13:35] VITALS: BP 108/57; PULSE 125; TEMP 98.4; BMI 25.7
[2019-03-03] MEDS ORDERED: AZITHROMYCIN 500 MG TABLET ONE (13:55)
--- NOTE | 2019-03-03 14:13 | PDOC ---
History of Present Illness - General Chief Complaint: Vaginal Sxs Stated Complaint: REVISIT Time Seen by Provider: 03/03/19 13:33 History Source: Patient, Parent(s) Past History - Travel Traveled outside of the country in the last 30 days: No Close contact w/someone who was outside of country & ill: No - Past History Allergies/Adverse Reactions: Allergies No Known Allergies Allergy (Verified 02/15/19 17:05) Home Medications: Ambulatory Orders Lorazepam [Ativan] 1 mg PO BID PRN #4 tablet MDD 2 02/19/19 Metoclopramide HCl [Reglan] 10 mg PO Q8H PRN #20 tablet 02/19/19 Ondansetron [Zofran Odt -] 4 mg SL TID PRN #21 od.tablet 02/19/19 Cephalexin Monohydrate [Keflex -] 500 mg PO BID #14 capsule 03/03/19 Sulfamethoxazole/Trimethoprim [Bactrim Ds -] 1 tab PO BID #14 tablet 03/03/19 - Social History Smoking Status: Never smoked Number of Cigarettes Smoked Per Day: 10 Number of Cigars Per Day: 0 Review of Systems - Review of Systems Able to Perform ROS?: Yes Comments:: 03/03/19 16:32 CONSTITUTIONAL: Absent: fever, chills, diaphoresis, generalized weakness, malaise, loss of appetite HEENT: Absent: rhinorrhea, nasal congestion, throat pain, throat swelling, difficulty swallowing, mouth swelling, ear pain, eye pain, visual Changes CARDIOVASCULAR: Absent: chest pain, loss of consciousness, palpitations, irregular heart rate, peripheral edema RESPIRATORY: Absent: cough, shortness of breath, dyspnea with exertion, orthopnea, wheezing, stridor, hemoptysis GASTROINTESTINAL: Absent: abdominal pain, abdominal distension, nausea, vomiting, diarrhea, constipation, melena, hematochezia GENITOURINARY: Present: dysuria Absent: frequency, urgency, hesitancy, hematuria, flank pain, genital pain MUSCULOSKELETAL: Absent: myalgia, arthralgia, joint swelling SKIN: Absent: rash, itching, pallor HEMATOLOGIC/IMMUNOLOGIC: Absent: easy bleeding, easy bruising, lymphadenopathy, frequent infections ENDOCRINE: Absent: unexplained weight gain, unexplained weight loss, heat intolerance, cold intolerance NEUROLOGIC: Absent: headache, focal weakness or paresthesias, dizziness, unsteady gait, seizure, mental status changes, bladder or bowel incontinence PSYCHIATRIC: Absent: anxiety, depression, suicidal or homicidal ideation, hallucinations. Is the patient limited Mohawk proficient: No *Physical Exam - Vital Signs Last Vital Signs Temp Pulse Resp BP Pulse Ox 98.4 F 125 H 18 108/57 L 100 03/03/19 13:33 03/03/19 13:33 03/03/19 13:33 03/03/19 13:33 03/03/19 13:33 - Physical Exam Comments: 03/03/19 16:32 GENERAL: Well developed, well nourished. Awake and alert. No acute distress. ABDOMINAL: Suprapubic discomfort. Soft. Non-tender. Non-distended. No rebound or guarding. No organomegaly. Normoactive bowel sounds. MUSCULOSKELETAL Normal range of motion at all joints. No bony deformities or tenderness. No CVA tenderness. EXTREMITIES: No cyanosis. No clubbing. No edema. No calf tenderness. SKIN: Warm and dry. Normal capillary refill. No rashes. No jaundice. NEUROLOGICAL: Alert, awake, appropriate. Cranial nerves 2-12 intact. No deficits to light touch and temperature in face, upper extremities and lower extremities. No motor deficits in the in face, upper extremities and lower extremities. Normoreflexic in the upper and lower extremities. Normal speech. Toes are down- going bilaterally. Gait is normal without ataxia. PSYCHIATRIC: Cooperative. Good eye contact. Appropriate mood and affect. Medical Decision Making - Medical Decision Making 03/03/19 16:32 The patient the patient is a 18-year-old female with past medical history of opioid abuse, who presents to the ER today after being informed that she has chlamydia. She is requesting treatment for chlamydia at this time. Patient states she has also been promiscuous since her last STD testing. It was recommended to her she also get treated for gonorrhea at this time, however patient does not want a shot. She is requesting a new STD test. She states that she was also treated for UTI last visit. Her mother states that she did not finish the antibiotics appropriately and is still having symptoms including dysuria. Denies fevers, chills,, abdominal pain, nausea, vomiting, back pain, hematuria and frequency. A/P: Need for chlamydia treatment, STD testing On exam patient with mild suprapubic tenderness. No CVA tenderness Treatment ordered for chlamydia. Patient takes azithromycin as directed. Informed her that she needs to tell her partners that they have chlamydia as well that way she does not reinfect herself. They are requesting to leave prior to you urine results. Patient states that it is okay for her mother to call and get information regarding her urine and STD testing at a later date and time. We will discharge home. I discussed the physical exam findings, ancillary test results and final diagnoses with the patient. I answered all of the patient's questions. The patient was satisfied with the care received and felt comfortable with the discharge plan and treatment plan. The Patient agrees to follow up with the primary care physician/specialist within 24-72 hours. Return precautions were given. 03/03/19 18:59 Mother calls back looking for urine results. Patient still has a UTI Sensitivity checked from last visit, the E. coli was resistant to Bactrim which the patient was taking. Sensitive to Keflex. Called in a prescription to patient's pharmacy. Mother states she will meat pickler the medication for her daughter at the end of her shift. *DC/Admit/Observation/Transfer Diagnosis at time of Disposition: Chlamydia contact, treated - Discharge Dispostion Disposition: HOME Condition at time of disposition: Stable Decision to Admit order: No - Prescriptions Prescriptions: Cephalexin Monohydrate [Keflex -] 500 mg PO BID #14 capsule Sulfamethoxazole/Trimethoprim [Bactrim Ds -] 1 tab PO BID #14 tablet - Referrals Referrals: Jaycob Garcia MD [Primary Care Provider] - - Patient Instructions Printed Discharge Instructions: DI for Chlamydia Additional Instructions: You were treated for Chlamydia today Please tell all your partners so they can get treated as well Please call for the results of your urine tonight Return to the ER for worsening pain, fever, urinary discomfort, or if you have any changes in your symptoms - Post Discharge Activity
[2019-03-03 14:34] LABS: EPI CELLS 4.6 /HPF (0-5/HPF); URINE APPEARANCE CLOUDY; URINE BILIRUBIN NEGATIVE (NEGATIVE); URINE CASTS 95 /lpf (0-8); URINE COLOR YELLOW; URINE GLUCOSE (UA) NEGATIVE (NEGATIVE); URINE KETONE NEGATIVE (NEGATIVE); URINE LEUK ESTERASE 1+ (NEGATIVE); URINE NITRITE NEGATIVE (NEGATIVE); URINE PROTEIN 1+ (NEGATIVE); URINE RBC 30 /hpf (0-4); URINE UROBILINOGEN 0.2 mg/dL (0.2-1.0); URINE WBC 129 /hpf (0-5)
== END 2019-03-03 14:35 | disposition home or self-care (01) ==
LOC: JERFT 13:20
DX: A56.8 Sexually transmitted chlamydial infection of other sites (principal); N39.0 Urinary tract infection, site not specified; B96.20 Unspecified Escherichia coli [E. coli] as the cause of diseases classified elsewhere
CPT/HCPCS: 36415; 81003; 84703; 87086; 87186; 87491; 87591; 99281-25

== ENCOUNTER 2020-06-01 13:03 | Inpatient (IN) | payer BC, OTHER ==
--- NOTE | 2020-06-01 14:24 | BHS.RME ---
Substance Use & Tx History - Substance Use History Heroin Substance amount: one bundle Frequency of use: Daily Substance route: Inhalation (ex: sniffing or snorting) Date of Last Use: 06/01/20 Xanax Substance amount: 3 x 2 mg Frequency of use: Daily Substance route: Oral Date of Last Use: 05/31/20 Physical/Psych/Mental Status - Behavior General Behavior: Increased activity (restlessness, agitation) Eye Contact: Normal - Cooperativeness Cooperativeness: Cooperative - Thinking Thought Processes: Tight Thought content: Future oriented - Physical Health Problems Is patient presently having any pain?: Yes (withdrawal) Does patient presently have any injuries (include location): No Does patient currently have a fever: No COWS - Scale Resting Pulse: 1= MI 81-100 Sweatin= Chills/Flushing Restless Observation: 1= Difficult to Sit Still Pupil Size: 1= Pupils >than Normal Bone or Joint Aches: 1= Mild Discomfort Runny Nose/ Eye Tearin= Runny Nose/Eyes GI Upset > 30mins: 2= Nausea/Diarrhea Tremor Observation: 2= Slight Tremor Visible Yawning Observation: 2= >3x During Session Anxiety or Irritability: 2=Irritable/Anxious Goose Flesh Skin: 0=Smooth Skin COWS Score: 15
[2020-06-01 16:31] VITALS: BMI 26.2
--- NOTE | 2020-06-01 18:11 | HP ---
COWS - Scale Resting Pulse: 1= [place] 81-100 Sweatin= Chills/Flushing Restless Observation: 1= Difficult to Sit Still Pupil Size: 2= Moderately Dilated Bone or Joint Aches: 1= Mild Discomfort Runny Nose/ Eye Tearin= Nasal Congestion GI Upset > 30mins: 2= Nausea/Diarrhea (No diarrhea) Tremor Observation: 4= Gross Tremor/Twitching Yawning Observation: 2= >3x During Session Anxiety or Irritability: 2=Irritable/Anxious Goose Flesh Skin: 0=Smooth Skin COWS Score: 17 CIWA Score Nausea/Vomitin-Mild Nausea/No Vomiting Muscle Tremors: 4-Moderate,w/Arms Extend Anxiety: 3 Agitation: 3 Paroxysmal Sweats: 3 (Increased facial moisture) Orientation: 1-Uncertain about Date Tacttile Disturbances: 0-None Auditory Disturbances: 0-None Visual Disturbances: 0-None Headache: 3-Moderate (Moderate achy, throbbing lutheran headache "7") CIWA-Ar Total Score: 18 - Admission Criteria OASAS Guidelines: Admission for Medically Managed Detox: Requires at least one of the followin. CIWA greater than 12 2. Seizures within the past 24 hours 3. Delirium tremens within the past 24 hours 4. Hallucinations within the past 24 hours 5. Acute intervention needed for co occurring medical disorder 6. Acute intervention needed for co occurring psychiatric disorder 7. Severe withdrawal that cannot be handled at a lower level of care (continued vomiting, continued diarrhea, abnormal vital signs) requiring intravenous medication and/or fluids 8. Patient presents the following: CIWA greater than 12 Admission Criteria Met: Admission criteria met Admitting History and Physical - Past Medical History ...LMP: 11/19/18 - Smoking History Smoking history: Never smoked Have you smoked in the past 12 months: No Aproximately how many cigarettes per day: 10 - Alcohol/Substance Use Hx Alcohol Use: No Admission ROS BHS - HPI Chief Complaint: Here because I want to try to to get sobriety to start a different pathway. Allergies/Adverse Reactions: Allergies Allergy/AdvReac Type Severity Reaction Status Date / Time No Known Allergies Allergy Verified 06/01/20 19:00 History of Present Illness: 20 you w/ multiple detox admissions presents with opioid and anxiolytic withdrawal seeking detox. PAMELA: 0.0 UTox: + THC/FEN/BZO HCG: Neg Denies hx seizures or blackouts. Last overdose - year go. Opioid use disorder since age [age]. Currently using 10 bags/day - nasally. Does not have a narcan kit at home. Encouraged to obtain upon discharge. Xanax use began at age 16. Currently uses 3 - 2mg sticks/day/orally. Nicotine use disorder since age 14. Has decreased amount. PMHx: Occ rapid heart rate. control implant (L) upper arm MHHx: Depression. Insomnia. Denies thoughts of harming self or others. Last saw MH Provider 1 month ago. States only takes Lunesta for sleep SHx: Domiciles. Unemployed. Denies legal issues. Patient Name: Eron Acosta Date: 2000 Address: [address] [place] [address] Sex: Female Rx Written Rx Dispensed Drug Quantity Days Supply Prescriber Name Payment Method Dispenser 09/13/2019 09/16/2019 buprenorphine-naloxone 8-2 mg sl tablet 7 7 Jaycob Garcia MD Insurance [id number] 09/08/2019 09/09/2019 buprenorphine-naloxone 8-2 mg sl tablet 7 7 Jaycob Garcia MD Insurance [id number] 09/01/2019 09/01/2019 eszopiclone 2 mg tablet 30 30 Jaycob Garcia MD Insurance [id number] 09/01/2019 09/01/2019 buprenorphine-naloxone 8-2 mg sl tablet 7 7 Jaycob Garcia MD Insurance [id number] 08/02/2019 08/03/2019 buprenorphine-naloxone 8-2 mg sl tablet 14 14 Jaycob Garcia MD Insurance [id number] 07/27/2019 07/29/2019 eszopiclone 2 mg tablet 30 30 Jaycob Garcia MD Insurance [id number] 07/27/2019 07/27/2019 buprenorphine-naloxone 8-2 mg sl tablet 7 7 Jaycob Garcia MD Insurance [id number] 07/04/2019 07/05/2019 buprenorphine-naloxone 8-2 mg sl tablet 14 14 Jaycob Garcia MD Insurance [id number] 06/28/2019 06/28/2019 buprenorphine-naloxone 8-2 mg sl tablet 7 7 Jaycob Garcia MD Insurance [id number] 06/21/2019 06/21/2019 eszopiclone 2 mg tablet 30 30 Jaycob Garcia MD [facility] #[id number] 06/21/2019 06/21/2019 buprenorphine-naloxone 8-2 mg sl tablet 7 7 Jaycob Garcia MD [facility] #[id number] Exam Limitations: No Limitations - Ebola screening Have you traveled outside of the country in the last 21 days: No (Denies known COVID exposure) Have you had contact with anyone from an Ebola affected area: No Have you been sick,other than usual withdrawal symptoms: No Do you have a fever: No - Review of Systems Constitutional: Chills, Diaphoresis, Changes in sleep (Difficulty falling and staying asleep), Weight Stable EENT: reports: Nose Congestion, Other (Dry eyes - uses saline [id number]) Cardiac: reports: No Symptoms Reported GI: reports: Nausea, Indigestion (Heart burn - adjusts diet) : reports: No Symptoms Reported Musculoskeletal: reports: Back Pain (Spinal pain r/t withdrawal) Integumentary: reports: No Symptoms Reported Neuro: reports: Headache (Moderate achy, throbbing lutheran headache "7") Endocrine: reports: Increased Thirst Hematology: reports: Anemia Psychiatric: reports: Judgement Intact, Mood/Affect Appropiate, Anxious, Depressed (Denies thoughts of harming self or others) Patient History - Patient Medical History Hx Anemia: Yes (Not on medication) Hx Asthma: No Hx Chronic Obstructive Pulmonary Disease (COPD): No Hx Cancer: No Hx Cardiac Disorders: No Hx Congestive Heart Failure: No Hx Hypertension: No Hx Hypercholesterolemia: No Hx Pacemaker: No HX Cerebrovascular Accident: No Hx Seizures: No Hx Dementia: No Hx Diabetes: No Hx Gastrointestinal Disorders: No Hx Liver Disease: No Hx Genitourinary Disorders: No Hx Sexually Transmitted Disorders: No Hx Renal Disease (ESRD): No Hx Thyroid Disease: No Hx Human Immunodeficiency Virus (HIV): No (Negative 2017) Hx Hepatitis C: No Hx Depression: Yes (Seroquel) Hx Suicide Attempt: No Hx Bipolar Disorder: No Hx Schizophrenia: No - Patient Surgical History Past Surgical History: No Hx Neurologic Surgery: No Hx Cataract Extraction: No Hx Cardiac Surgery: No Hx Lung Surgery: No Hx Breast Surgery: No Hx Breast Biopsy: No Hx Abdominal Surgery: No Hx Appendectomy: No Hx Cholecystectomy: No Hx Genitourinary Surgery: No Hx Section: No Hx Orthopedic Surgery: No Hx Hysterectomy: No Anesthesia Reaction: No - PPD History Previous Implant?: Yes Documented Results: Negative w/proof Implanted On Prior [facility] Admission?: Yes PPD to be Administered?: Yes - Reproductive History Patient is a Female of Child Bearing Age (11 -55 yrs old): Yes Last Menstrual Period: 12/04/19 (Irregular/ has Implant ) Patient : No - Smoking Cessation Smoking history: Current every day smoker Have you smoked in the past 12 months: No Aproximately how many cigarettes per day: 10 Cigars Per Day: 0 Hx Chewing Tobacco Use: No Initiated information on smoking cessation: Yes 'Breaking Loose' booklet given: 06/01/20 - Substance & Tx. History Hx Alcohol Use: No Hx Substance Use: Yes Substance Use Type: Heroin, Marijuana, Opiates, Tranquilizers (Xanax) Hx Substance Use Treatment: Yes (detox, rehab) - Substances abused Alprazolam (Xanax) Substance route: Oral Frequency: Daily Amount used: 6MG Age of first use: 16 Date of last use: 05/31/20 Heroin Substance route: Inhalation Frequency: Daily Amount used: 1 BUNDLE Age of first use: 17 Date of last use: 06/01/20 Marijuana/Hashish Substance route: Smoking Frequency: Daily Amount used: 1 BLUNT Age of first use: 13 Date of last use: 05/31/20 Admission Physical Exam BHS - Vital Signs Vital Signs: Vital Signs - 24 hr 06/01/20 16:29 Temperature 98.1 F Pulse Rate 91 H Respiratory 19 Rate Blood Pressure 95/64 - Physical General Appearance: Yes: Nourished, Mild Distress, Sweating (Increased facial moisture), Anxious HEENTM: Yes: Normocephalic, Normal Voice, GINO (Pupils = 3 mm viewed under contact lenses (Color contact lenses have permanent fixed puupil at 5 mm)), Pharynx Normal, Nasal Congestion Respiratory: Yes: Lungs Clear (Pulse Ox = 98%), Normal Breath Sounds, No Respiratory Distress Neck: Yes: No masses,lesions,Nodules, Supple Breast: Yes: Breast Exam Deferred Cardiology: Yes: Regular Rhythm, Regular Rate (HR: 92), S1, S2 Abdominal: Yes: Non Tender, Flat, Soft, Increased Bowel Sounds Genitourinary: Yes: Within Normal Limits Back: Yes: Normal Inspection Musculoskeletal: Yes: full range of Motion, Gait Steady Extremities: Yes: Normal Capillary Refill, Non-Tender, Tremors (Gross) Neurological: Yes: 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 intact, Fully Oriented, Alert, Motor Strength 5/5, Normal Mood/Affect, Normal Response Integumentary: Yes: Normal Color, Warm, Moist (Increased facial moisture) Lymphatic: Yes: Within Normal Limits - Diagnostic (1) Opioid dependence with withdrawal Current Visit: Yes Status: Acute (2) Cannabis dependence Current Visit: Yes Status: Chronic (3) GERD (gastroesophageal reflux disease) Current Visit: Yes Status: Chronic Qualifiers: Esophagitis presence: without esophagitis Qualified Code(s): K21.9 - Gastro-esophageal reflux disease without esophagitis (4) Nicotine dependence Current Visit: Yes Status: Chronic Qualifiers: Nicotine product type: cigarettes Substance use status: uncomplicated Qualified Code(s): F17.210 - Nicotine dependence, cigarettes, uncomplicated (5) Sedative, hypnotic or anxiolytic dependence with withdrawal, uncomplicated Current Visit: Yes Status: Acute Cleared for Admission S - Detox or Rehab [facility] Level of Care: Medically Managed Detox Regimen/Protocol: Methadone/Valium Claeared for Rehab Admission: No Breathalyzer - Breathalyzer Breathalyzer: 0 Urine Drug Screen - Test Device Lot number: [id number] Expiration date: 05/22/22 - Control Is test valid?: Yes - Results Drug screen NEGATIVE: No Urine drug screen results: THC-Marijuana, FEN-Fentanyl, BZO-Benzodiazepines Inpatient Rehab Admission - Rehab Decision to Admit Inpatient rehab admission?: No
[2020-06-01] MEDS ORDERED: MAGNESIUM HYDROX 2400MG/30ML ORAL SUSPENSION 30 ML CUP PO PRN (18:50)
[2020-06-01] MEDS ORDERED: MAGNESIUM CITRATE 300 ML BOTTLE PO PRN (18:50)
[2020-06-01] MEDS ORDERED: cloNIDine HCL 0.1 MG TABLET PO PRN (18:50)
[2020-06-01] MEDS ORDERED: MAG HYDROX/AL HYDROX/SIMETH 30 ML UNIT-DOSE CUP PO PRN (18:50)
[2020-06-01] MEDS ORDERED: BISMUTH SUBSALICYLATE 524 MG/30 ML UD PO PRN (18:50)
[2020-06-01] MEDS ORDERED: ACETAMINOPHEN 325 MG TABLET (FP) PO PRN ×2 (18:50)
[2020-06-01] MEDS ORDERED: NICOTINE POLACRILEX 2 MG GUM BUC PRN (18:50)
[2020-06-01] MEDS ORDERED: IBUPROFEN 400 MG TABLET (FP) PO PRN (18:50)
[2020-06-01] MEDS ORDERED: MENTHOL/PHENOL 1 EACH UD MM PRN (18:50)
[2020-06-01] MEDS ORDERED: ONDANSETRON *ODT* 4 MG TABLET SL ONE (19:15)
[2020-06-01] MEDS: diazePAM 5 MG TABLET PO PRN (20:17)
[2020-06-01] MEDS: METHOCARBAMOL 500 MG TABLET PO PRN (20:17)
[2020-06-01] MEDS: THIAMINE HCL 100 MG TABLET (FP) PO SCH (21:07)
[2020-06-01] MEDS: diazePAM 5 MG TABLET PO SCH (21:07)
[2020-06-01] MEDS ORDERED: QUEtiapine FUMARATE 50 MG TABLET PO PRN (22:00)
[2020-06-01] MEDS ORDERED: METHADONE HCL 10 MG TABLET (FOR DETOX USE ONLY) PO ONE (22:00)
[2020-06-01] MEDS: MELATONIN 5 MG TABLETS PO SCH (23:33)
[2020-06-02] MEDS: diazePAM 5 MG TABLET PO SCH ×3 (06:04→22:06)
[2020-06-02] MEDS ORDERED: METHADONE HCL 5 MG TABLET (FOR DETOX USE ONLY) ONE (08:53)
[2020-06-02] MEDS ORDERED: METHADONE HCL 10 MG TABLET (FOR DETOX USE ONLY) ONE (08:54)
[2020-06-02] MEDS ORDERED: METHADONE (DETOX) 20 MG, METHADONE (DETOX) 5 MG PO ONE (10:00)
[2020-06-02] MEDS: PRENATAL VITAMINS W/ FOLIC ACID TABLET (FP) PO SCH (10:31)
[2020-06-02] MEDS: NICOTINE 14 MG/24 HOURS TOPICAL PATCH TD SCH (10:32)
[2020-06-02] MEDS: diazePAM 5 MG TABLET PO PRN ×2 (10:34→16:39)
--- NOTE | 2020-06-02 15:58 | PN ---
[facility] CIWA - CIWA Score Nausea/Vomitin-No Nausea/No Vomiting Muscle Tremors: 1-None Visible, but [place] Anxiety: 2 Agitation: 2 Paroxysmal Sweats: No Perspiration Orientation: 2-Disoriented Date<2 days Tacttile Disturbances: 0-None Auditory Disturbances: 0-None Visual Disturbances: 2-Mild Sensitivity Headache: 0-None Present CIWA-Ar Total Score: 9 S COWS - Scale Resting Pulse: 0= [place] 80 or Below Sweatin= Chills/Flushing Restless Observation: 0= Sits Still Pupil Size: 0= Normal to Room Light Bone or Joint Aches: 1= Mild Discomfort Runny Nose/ Eye Tearin= None GI Upset > 30mins: 0= None Tremor Observation of Outstretched Hands: 2= Slight Tremor Visible Yawning Observation: 1= 1-2x During Session Anxiety or Irritability: 2=Irritable/Anxious Goose Flesh Skin: 0=Smooth Skin COWS Score: 7 S Progress Note (SOAP) Subjective: Sweating, Tremors, Anxious. Objective: Patient A & O X 2 (Uncertain About Current Day/Date). Patient Observed Ambulating on Detox Unit Unassisted. In No Acute Distress. 06/02/20 15:56 Vital Signs Temperature 97.1 F L 06/02/20 12:56 Pulse Rate 77 06/02/20 12:56 Respiratory Rate 16 06/02/20 12:56 Blood Pressure 98/56 L 06/02/20 12:56 O2 Sat by Pulse Oximetry (%) 98 06/02/20 12:56 Patient refused to have Detox Admission Labs Drawn. COVID-19 Test result Pending. 06/02/20 15:57 Assessment: 06/02/20 15:58 WITHDRAWAL SYMPTOMS. Plan: Continue Detox.
[2020-06-02] MEDS: THIAMINE HCL 100 MG TABLET (FP) PO SCH (22:06)
[2020-06-02] MEDS: MELATONIN 5 MG TABLETS PO SCH (22:06)
[2020-06-02] MEDS: METHOCARBAMOL 500 MG TABLET PO PRN (23:12)
[2020-06-03] MEDS: diazePAM 5 MG TABLET PO SCH ×2 (05:29→17:13)
[2020-06-03] MEDS ORDERED: METHADONE HCL 10 MG TABLET (FOR DETOX USE ONLY) PO ONE (10:00)
[2020-06-03] MEDS: PRENATAL VITAMINS W/ FOLIC ACID TABLET (FP) PO SCH (10:45)
[2020-06-03] MEDS: NICOTINE 14 MG/24 HOURS TOPICAL PATCH TD SCH (10:46)
[2020-06-03] MEDS: METHOCARBAMOL 500 MG TABLET PO PRN ×2 (10:46→18:35)
[2020-06-03] MEDS: diazePAM 5 MG TABLET PO PRN (10:47)
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
--- NOTE | 2020-06-03 17:38 | PN ---
S CIWA - CIWA Score Nausea/Vomitin-Mild Nausea/No Vomiting Muscle Tremors: 2 Anxiety: 2 Agitation: 2 Paroxysmal Sweats: 2 Orientation: 0-Oriented Tacttile Disturbances: 0-None Auditory Disturbances: 0-None Visual Disturbances: 0-None Headache: 0-None Present CIWA-Ar Total Score: 9 BHS COWS - Scale Resting Pulse: 1= [place] 81-100 Sweatin= Chills/Flushing Restless Observation: 0= Sits Still Pupil Size: 0= Normal to Room Light Bone or Joint Aches: 1= Mild Discomfort Runny Nose/ Eye Tearin= Runny Nose/Eyes GI Upset > 30mins: 1= Stomach Cramp Tremor Observation of Outstretched Hands: 2= Slight Tremor Visible Yawning Observation: 0= None Anxiety or Irritability: 1=Feels Anxious/Irritable Goose Flesh Skin: 0=Smooth Skin COWS Score: 9 BHS Progress Note (SOAP) Subjective: Chills, sweating, interrupted sleep Objective: 06/03/20 17:35 Last Vital Signs Temp Pulse Resp BP Pulse Ox 98.4 F 99 H 18 99/58 L 99 06/03/20 12:38 06/03/20 12:38 06/03/20 12:38 06/03/20 12:38 06/03/20 12:38 Laboratory Tests 06/01/20 18:30 COVID-19 (JAMEEL) Not detected No admission lab result available Assessment: 06/03/20 17:36 Withdrawal sxs Plan: Continue detox Encourage PO water intake Consider reordering admission labs if patient cooperative to do blood draw
--- NOTE | 2020-06-03 18:57 | EKG ---
Test Reason : Blood Pressure : / mmHG Vent. Rate : 065 BPM Atrial Rate : 065 BPM P-R Int : 146 ms QRS Dur : 090 ms QT Int : 394 ms P-R-T Axes : 055 075 050 degrees QTc Int : 409 ms NORMAL SINUS RHYTHM EARLY REPOLARIZATION ST ELEVATION CONSIDER INFEROLATERAL INJURY OR ACUTE INFARCT ABNORMAL ECG Confirmed by MD AARON, MARTHA ([id number]) on 06/03/2020 6:57:18 PM Referred By: ANNETTE Doe Confirmed By:MARTHA WALKER MD
[2020-06-03] MEDS ORDERED: QUEtiapine FUMARATE 25 MG TABLET ONE (21:04)
[2020-06-03] MEDS ORDERED: QUEtiapine FUMARATE 50 MG TABLET PO SCH (22:00)
[2020-06-03] MEDS ORDERED: SUVOREXANT 10 MG TABLET PO PRN (22:00)
[2020-06-03] MEDS: QUEtiapine FUMARATE 50 MG TABLET PO SCH (22:12)
[2020-06-03] MEDS: THIAMINE HCL 100 MG TABLET (FP) PO SCH (22:13)
[2020-06-03] MEDS: MELATONIN 5 MG TABLETS PO SCH (22:14)
[2020-06-04] MEDS: METHOCARBAMOL 500 MG TABLET PO PRN ×3 (05:16→22:10)
[2020-06-04] MEDS ORDERED: diazePAM 5 MG TABLET PO ONE (06:00)
[2020-06-04] MEDS ORDERED: METHADONE HCL 10 MG TABLET (FOR DETOX USE ONLY) ONE (09:26)
[2020-06-04] MEDS ORDERED: METHADONE HCL 5 MG TABLET (FOR DETOX USE ONLY) ONE (09:26)
[2020-06-04] MEDS ORDERED: METHADONE (DETOX) 10 MG, METHADONE (DETOX) 5 MG PO ONE (10:00)
[2020-06-04] MEDS: PRENATAL VITAMINS W/ FOLIC ACID TABLET (FP) PO SCH (10:11)
[2020-06-04] MEDS: NICOTINE 14 MG/24 HOURS TOPICAL PATCH TD SCH (10:11)
[2020-06-04] MEDS: diazePAM 5 MG TABLET PO PRN ×3 (10:58→19:20)
--- NOTE | 2020-06-04 11:59 | PN ---
[facility] CIWA - CIWA Score Nausea/Vomitin-No Nausea/No Vomiting Muscle Tremors: 2 Anxiety: 1-Mildly Anxious Agitation: 2 Paroxysmal Sweats: 1-Minimal [place] Moist Orientation: 0-Oriented Tacttile Disturbances: 0-None Auditory Disturbances: 0-None Visual Disturbances: 0-None Headache: 0-None Present CIWA-Ar Total Score: 6 BHS COWS - Scale Resting Pulse: 1= [place] 81-100 Sweatin= Chills/Flushing Restless Observation: 1= Difficult to Sit Still Pupil Size: 0= Normal to Room Light Bone or Joint Aches: 1= Mild Discomfort Runny Nose/ Eye Tearin= None GI Upset > 30mins: 0= None Tremor Observation of Outstretched Hands: 1= Tremor [place], Not Seen Yawning Observation: 1= 1-2x During Session Anxiety or Irritability: 1=Feels Anxious/Irritable Goose Flesh Skin: 0=Smooth Skin COWS Score: 7 [facility] Progress Note (SOAP) Subjective: sweats body aches restless interrupted sleep agitation Objective: 06/04/20 11:59 Vital Signs Temperature 98.0 F 06/04/20 05:08 Pulse Rate 95 H 06/04/20 05:08 Respiratory Rate 16 06/04/20 05:08 Blood Pressure 115/74 06/04/20 05:08 O2 Sat by Pulse Oximetry (%) 95 06/04/20 05:08 Laboratory Tests 06/01/20 18:30 COVID-19 (JAMEEL) Not detected [id number] ambulating no acute distress Assessment: 06/04/20 12:00 withdrawals Plan: continue detox
--- NOTE | 2020-06-04 20:27 | PN ---
BHS Progress Note Note: Patient w/ c/o increased anxiety. Benzo and opioid withdrawal. Schedule for discharge on 06/06. Will order additional doses of valium for withdrawal symptoms. Vital Signs 06/04/20 06/04/20 12:49 16:50 Temperature 98.4 F 98.6 F Pulse Rate 109 H 100 H Respiratory 18 18 Rate Blood Pressure 125/64 99/68 O2 Sat by Pulse 98 98 Oximetry (%)
[2020-06-04] MEDS ORDERED: QUEtiapine FUMARATE 25 MG TABLET ONE (20:47)
[2020-06-04] MEDS: THIAMINE HCL 100 MG TABLET (FP) PO SCH (22:09)
[2020-06-04] MEDS: QUEtiapine FUMARATE 50 MG TABLET PO SCH (22:09)
[2020-06-04] MEDS: MELATONIN 5 MG TABLETS PO SCH (22:09)
[2020-06-05] MEDS: METHOCARBAMOL 500 MG TABLET PO PRN (06:07)
[2020-06-05] MEDS: diazePAM 5 MG TABLET PO PRN (06:07)
[2020-06-05] MEDS ORDERED: METHADONE HCL 10 MG TABLET (FOR DETOX USE ONLY) PO ONE ×2 (08:45→10:00)
[2020-06-05] MEDS: PRENATAL VITAMINS W/ FOLIC ACID TABLET (FP) PO SCH (08:51)
[2020-06-05 10:16] VITALS: BP 107/66; PULSE 126; TEMP 97.4
--- NOTE | 2020-06-05 14:17 | DS ---
[facility] Detox Discharge Summary Admission Date: 06/01/20 Discharge Date: 06/05/20 - History Present History: Opioid Dependence, Sedative Dependence Additional Comments: 20 years old female was admitted on 06/01/20 for benzo and opiate withdrawal sx management treated with valium and methadone detox regiments seen by psychiatrist milo joseph ms terrazas insists to leave the detox today instead of estimated discharge date of 06/06/20 General Appearance: Yes: Nourished, Mild Distress, Sweating (Increased facial moisture), Anxious HEENTM: Yes: Normocephalic, Normal Voice, GINO (Pupils = 3 mm viewed under contact lenses (Color contact lenses have permanent fixed puupil at 5 mm)), Pharynx Normal, Nasal Congestion Respiratory: Yes: Lungs Clear (Pulse Ox = 98%), Normal Breath Sounds, No Respiratory Distress Neck: Yes: No masses,lesions,Nodules, Supple Breast: Yes: Breast Exam Deferred Cardiology: Yes: Regular Rhythm, Regular Rate (HR: 92), S1, S2 Abdominal: Yes: Non Tender, Flat, Soft, Increased Bowel Sounds Genitourinary: Yes: Within Normal Limits Back: Yes: Normal Inspection Musculoskeletal: Yes: full range of Motion, Gait Steady Extremities: Yes: Normal Capillary Refill, Non-Tender, Tremors (Gross) Neurological: Yes: 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, Fully Oriented, Alert, Motor Strength 5/5, Normal Mood/Affect, Normal Response Integumentary: Yes: Normal Color, Warm, Moist (Increased facial moisture) Lymphatic: Yes: Within Normal Limits Pertinent Past History: time for discharge 44 minutes treatment team met with ms terrazas to discuss the benefit of valium and methadone regiments completion "I finished my valium" ms terrazas states that she has family emergency must return home to family today ms terrazas appears anxious and worry - Physical Exam Results Vital Signs: Vital Signs Temperature 97.4 F L 06/05/20 08:40 Pulse Rate 126 H 06/05/20 08:40 Respiratory Rate 18 06/05/20 08:40 Blood Pressure 107/66 06/05/20 08:40 O2 Sat by Pulse Oximetry (%) 99 06/05/20 06:10 Pertinent Admission Physical Exam Findings: benzo and opiate withdrawal Vital Signs - 24 hr 06/04/20 06/04/20 06/05/20 16:50 20:36 06:10 Temperature 98.6 F 97.3 F L 98.9 F Pulse Rate 100 H 111 H 100 H Respiratory 18 18 16 Rate Blood Pressure 99/68 97/66 90/55 L O2 Sat by Pulse 98 100 99 Oximetry (%) 06/05/20 08:40 Temperature 97.4 F L Pulse Rate 126 H Respiratory 18 Rate Blood Pressure 107/66 O2 Sat by Pulse Oximetry (%) Laboratory Tests 06/01/20 18:30 COVID-19 (JAMEEL) Not detected lab seen February 2020 admission lab - Treatment Hospital Course: Detox Protocol Followed, Detoxed Safely, Responded well, Discharged Condition Good, Rehab Referral Accepted Patient has Accepted a Rehab Referral to: community support NA/AA - Medication Discharge Medications: Ambulatory Orders Eszopiclone [Lunesta -] 3 mg PO HS 06/01/20 - Diagnosis (1) Opioid dependence with withdrawal Status: Acute (2) Sedative, hypnotic or anxiolytic dependence with withdrawal, uncomplicated Status: Acute (3) Substance induced mood disorder Status: Suspected (4) GERD (gastroesophageal reflux disease) Status: Chronic Qualifiers: Esophagitis presence: without esophagitis Qualified Code(s): K21.9 - Gastro-esophageal reflux disease without esophagitis (5) Nicotine dependence Status: Acute Qualifiers: Nicotine product type: cigarettes Substance use status: in withdrawal Qualified Code(s): F17.213 - Nicotine dependence, cigarettes, with withdrawal - AMA Did Patient Leave Against Medical Advice: No CIWA Score - CIWA Score Nausea/Vomitin-No Nausea/No Vomiting Muscle Tremors: 2 Anxiety: 1-Mildly Anxious Agitation: 1-Slight > Activity Paroxysmal Sweats: No Perspiration Orientation: 0-Oriented Tacttile Disturbances: 0-None Auditory Disturbances: 0-None Visual Disturbances: 0-None Headache: 0-None Present CIWA-Ar Total Score: 4 COWS (PN) - Opiate Withdrawal Resting Pulse: 4= [place] > 121 Sweatin= No chills or Flushing Restless Observation: 0= Sits Still Pupil Size: 0= Normal to Room Light Bone or Joint Aches: 0= None Runny Nose/ Eye Tearin= None GI Upset > 30mins: 0= None Tremor Observation of Outstretched Hands: 0= None Yawning Observation: 0= None Anxiety or Irritability: 0= None Goose Flesh Skin: 0=Smooth Skin COWS Score: 4
[2020-06-06] MEDS ORDERED: METHADONE HCL 5 MG TABLET (FOR DETOX USE ONLY) PO ONE (06:00)
== END 2020-06-05 09:13 | disposition home or self-care (01) | DRG 897 ==
LOC: YASAS 13:03 → Y6N 18:46 → Y3N 06-04 19:40
PROVIDERS: ADMIT Allergy & Immunology; ATTEND Allergy & Immunology
PROC: HZ2ZZZZ Detoxification Services for Substance Abuse Treatment (ICD-10-PCS; principal; 2020-06-01)
DX: F11.23 Opioid dependence with withdrawal (principal); F19.282 Other psychoactive substance dependence with psychoactive substance-induced sleep disorder; F13.230 Sedative, hypnotic or anxiolytic dependence with withdrawal, uncomplicated; F12.20 Cannabis dependence, uncomplicated; F17.213 Nicotine dependence, cigarettes, with withdrawal; F19.24 Other psychoactive substance dependence with psychoactive substance-induced mood disorder; F43.10 Post-traumatic stress disorder, unspecified; D64.9 Anemia, unspecified; K21.9 Gastro-esophageal reflux disease without esophagitis; Z62.810 Personal history of physical and sexual abuse in childhood
CPT/HCPCS: 93005; 93010; U0003

== ENCOUNTER 2020-07-19 18:22 | Inpatient (IN) | payer BC, OTHER ==
--- NOTE | 2020-07-19 18:37 | BHS.RME ---
Substance Use & Tx History - Substance Use History Heroin Substance amount: 7-8 bags Frequency of use: Daily Substance route: Inhalation (ex: sniffing or snorting) Date of Last Use: 07/19/20 (started age 17) Xanax Substance amount: 2mg 3 tabs Frequency of use: Daily Substance route: Oral Date of Last Use: 07/17/20 (started age 15) Marijuana/Hashish Substance amount: 2 blunts Frequency of use: Daily Substance route: Smoking Date of Last Use: 07/18/20 (started age 13) Nicotine Substance amount: 6 cigg Frequency of use: Daily Substance route: Smoking Date of Last Use: 07/19/20 (started age 16) - Last Treatment Date of last treatment: 06/01-06/05/20 completed detox Physical/Psych/Mental Status - Behavior General Behavior: Increased activity (restlessness, agitation) Eye Contact: Normal - Cooperativeness Cooperativeness: Cooperative - Thinking Thought Processes: Tight, Logical, Goal Directed - Physical Health Problems Is patient presently having any pain?: No Does patient presently have any injuries (include location): No Does patient currently have a fever: No Is patient : No COWS - Scale Resting Pulse: 1= [place] 81-100 Sweatin= Chills/Flushing Restless Observation: 1= Difficult to Sit Still Pupil Size: 1= Pupils >than Normal Bone or Joint Aches: 1= Mild Discomfort Runny Nose/ Eye Tearin= Nasal Congestion GI Upset > 30mins: 1= Stomach Cramp Tremor Observation: 1= Tremor [place], Not Seen Yawning Observation: 1= 1-2x During Session Anxiety or Irritability: 1=Feels Anxious/Irritable Goose Flesh Skin: 0=Smooth Skin (used today so not yet in full withdrawals.) COWS Score: 10
[2020-07-19 18:47] VITALS: BMI 27.0
--- NOTE | 2020-07-19 19:08 | HP ---
COWS - Scale Resting Pulse: 1= [place] 81-100 Sweatin= Chills/Flushing Restless Observation: 1= Difficult to Sit Still Pupil Size: 2= Moderately Dilated (Pupils = 5 mm) Bone or Joint Aches: 1= Mild Discomfort Runny Nose/ Eye Tearin= Nasal Congestion GI Upset > 30mins: 1= Stomach Cramp Tremor Observation: 2= Slight Tremor Visible Yawning Observation: 1= 1-2x During Session Anxiety or Irritability: 1=Feels Anxious/Irritable Goose Flesh Skin: 0=Smooth Skin (used today so not yet in full withdrawals.) COWS Score: 12 CIWA Score - Admission Criteria OASAS Guidelines: Admission for Medically Managed Detox: Requires at least one of the followin. CIWA greater than 12 2. Seizures within the past 24 hours 3. Delirium tremens within the past 24 hours 4. Hallucinations within the past 24 hours 5. Acute intervention needed for co occurring medical disorder 6. Acute intervention needed for co occurring psychiatric disorder 7. Severe withdrawal that cannot be handled at a lower level of care (continued vomiting, continued diarrhea, abnormal vital signs) requiring intravenous medication and/or fluids 8. Admitting History and Physical - Past Medical History ...LMP: 12/04/19 (Irregular/ has Implant ) - Smoking History Smoking history: Current every day smoker Have you smoked in the past 12 months: No Aproximately how many cigarettes per day: 10 - Alcohol/Substance Use Hx Alcohol Use: No Admission ROS [facility] - [facility] Chief Complaint: "Here to stop using and stay free from drugs" Allergies/Adverse Reactions: Allergies Allergy/AdvReac Type Severity Reaction Status Date / Time No Known Allergies Allergy Verified 06/01/20 19:00 History of Present Illness: 20 you w/ presents with opioid withdrawal symptoms seeking detox. States relapsed 2-3 weeks ago after the of a friend. PAMELA: 0.0 UTox: + THC/FEN/MET/AMP HCG: Neg Denies hx seizures or blackouts. Last overdose - 2 years ago. Opioid use disorder since age [age]. Currently using 7 bags/day - nasally. Has a narcan kit at home. States got a prescription for Suboxone 1 month ago, but has not f/u since then. Xanax use began at age 16. Currently uses 3-2mg sticks/2x/wk. Last used 3 days ago Marijuana use began at age 13. Smokes 2 blunts/day. Nicotine use disorder since age 16. Smokes 6 cig/day. States used Ecstasy a couple days ago. Rarely uses. PMHx: Occ rapid heart rate. control implant (L) upper arm. MHHx: Depression. Anxiety. Insomnia. Denies thoughts of harming self or others. Has a community Provider. SHx: Domiciled. Unemployed. Denies legal issues. Patient Name: Eron Acosta Date: 2000 Address: [address] [place] [address] Sex: Female Rx Written Rx Dispensed Drug Quantity Days Supply Prescriber Name Payment Method Dispenser 06/22/2020 06/22/2020 buprenorphine-naloxone 8-2 mg sl tablet 7 7 Jaycob Garcia MD Insurance [id number] 06/15/2020 06/15/2020 buprenorphine-naloxone 8-2 mg sl tablet 7 7 Jaycob Garcia MD Insurance [id number] 06/08/2020 06/08/2020 buprenorphine-naloxone 8-2 mg sl tablet 4 8 Jaycob Garcia MD Insurance [id number] 09/13/2019 09/16/2019 buprenorphine-naloxone 8-2 mg sl tablet 7 7 Jaycob Garcia MD Insurance [id number] 09/08/2019 09/09/2019 buprenorphine-naloxone 8-2 mg sl tablet 7 7 Jaycob Garcia MD Insurance [id number] 09/01/2019 09/01/2019 eszopiclone 2 mg tablet 30 30 Jaycob Garcia MD Insurance [id number] 09/01/2019 09/01/2019 buprenorphine-naloxone 8-2 mg sl tablet 7 7 Jaycob Garcia MD Insurance [id number] 08/02/2019 08/03/2019 buprenorphine-naloxone 8-2 mg sl tablet 14 14 Jaycob Garcia MD Insurance [id number] 07/27/2019 07/29/2019 eszopiclone 2 mg tablet 30 30 Jaycob Garcia MD Insurance [id number] 07/27/2019 07/27/2019 buprenorphine-naloxone 8-2 mg sl tablet 7 7 Jaycob Garcia MD Insurance [id number] Exam Limitations: No Limitations - Ebola screening Have you traveled outside of the country in the last 21 days: No (Neg COVID) Have you had contact with anyone from an Ebola affected area: No Have you been sick,other than usual withdrawal symptoms: No Do you have a fever: No - Review of Systems Constitutional: Chills, Changes in sleep (Difficulty falling and staying asleep. - Would like to try seroquel), Weight Stable EENT: reports: Nose Congestion Respiratory: reports: No Symptoms reported Cardiac: reports: No Symptoms Reported GI: reports: Indigestion (in past), Abdominal cramping, Other (Achy in mid-upper epigatric area.) : reports: No Symptoms Reported Musculoskeletal: reports: Muscle Pain (r/t withdrawal) Integumentary: reports: No Symptoms Reported Neuro: reports: Headache (Headache achy "4". Denies head injury.) Endocrine: reports: Increased Thirst Hematology: reports: No Symptoms Reported Psychiatric: reports: Judgement Intact, Mood/Affect Appropiate, Orientated x3, Agitated, Anxious, Depressed (Denies thoughts of harming self or others.) Patient History - Patient Medical History Hx Anemia: Yes (Not on medication) Hx Asthma: No Hx Chronic Obstructive Pulmonary Disease (COPD): No Hx Cancer: No Hx Cardiac Disorders: No Hx Congestive Heart Failure: No Hx Hypertension: No Hx Hypercholesterolemia: No Hx Pacemaker: No HX Cerebrovascular Accident: No Hx Seizures: No Hx Dementia: No Hx Diabetes: No Hx Gastrointestinal Disorders: No Hx Liver Disease: No Hx Genitourinary Disorders: No Hx Sexually Transmitted Disorders: No Hx Renal Disease (ESRD): No Hx Thyroid Disease: No Hx Human Immunodeficiency Virus (HIV): No (Negative 2017) Hx Hepatitis C: No Hx Depression: Yes Hx Suicide Attempt: No Hx Bipolar Disorder: No Hx Schizophrenia: No - Patient Surgical History Past Surgical History: No Hx Neurologic Surgery: No Hx Cataract Extraction: No Hx Cardiac Surgery: No Hx Lung Surgery: No Hx Breast Surgery: No Hx Breast Biopsy: No Hx Abdominal Surgery: No Hx Appendectomy: No Hx Cholecystectomy: No Hx Genitourinary Surgery: No Hx Section: No Hx Orthopedic Surgery: No Hx Hysterectomy: No Anesthesia Reaction: No - PPD History Previous Implant?: Yes Documented Results: Negative w/proof Implanted On Prior [facility] Admission?: Yes Date: 06/03/20 Results: NEGATIVE PPD to be Administered?: No - Reproductive History Patient is a Female of Child Bearing Age (11 -55 yrs old): Yes Last Menstrual Period: 12/04/19 (Irregular/ has Implant ) Patient : No - Smoking Cessation Smoking history: Current every day smoker Have you smoked in the past 12 months: No Aproximately how many cigarettes per day: 5 Cigars Per Day: 0 Hx Chewing Tobacco Use: No Initiated information on smoking cessation: Yes 'Breaking Loose' booklet given: 07/19/20 - Substance & Tx. History Hx Alcohol Use: No Hx Substance Use: Yes Substance Use Type: Cocaine, Heroin, Marijuana, Opiates, Tranquilizers Hx Substance Use Treatment: Yes (detox, rehab, past Suboxone) Admission Physical Exam S - Vital Signs Vital Signs: Vital Signs - 24 hr 07/19/20 18:46 Temperature 97.7 F Pulse Rate 83 Respiratory 18 Rate Blood Pressure 106/73 - Physical General Appearance: Yes: Nourished, Mild Distress, Sweating (Increased facial moisture), Anxious HEENTM: Yes: EOMI, Hearing grossly Normal, Normocephalic, Normal Voice, GINO (Pupils = 5 mm. Wears colored contact lenses.), Other (Tonsils stge 2. No increased erythema or exudate) Respiratory: Yes: Lungs Clear, Normal Breath Sounds, No Respiratory Distress Neck: Yes: No masses,lesions,Nodules, Supple Breast: Yes: Breast Exam Deferred Cardiology: Yes: Regular Rhythm, Regular Rate Abdominal: Yes: Flat, Soft, Increased Bowel Sounds Genitourinary: Yes: Within Normal Limits Back: Yes: Normal Inspection Musculoskeletal: Yes: full range of Motion, Gait Steady Extremities: Yes: Normal Capillary Refill, Normal Inspection, Tremors Neurological: Yes: supervisor hanging and trimming II-XII NML intact, Fully Oriented, Alert, Motor Strength 5/5 Integumentary: Yes: Normal Color, Warm Lymphatic: Yes: Within Normal Limits - Diagnostic (1) Insomnia Current Visit: Yes Status: Chronic Qualifiers: Insomnia type: unspecified Qualified Code(s): G47.00 - Insomnia, unspecified (2) Nicotine dependence Current Visit: Yes Status: Chronic Qualifiers: Nicotine product type: cigarettes Substance use status: uncomplicated Qualified Code(s): F17.210 - Nicotine dependence, cigarettes, uncomplicated (3) Opioid dependence with withdrawal Current Visit: Yes Status: Acute (4) Cannabis dependence Current Visit: Yes Status: Chronic (5) Sedative, hypnotic or anxiolytic dependence, uncomplicated Current Visit: Yes Status: Chronic (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 - Detox or Rehab [facility] Level of Care: Medically Managed Detox Regimen/Protocol: Methadone Claeared for Rehab Admission: No Breathalyzer - Breathalyzer Breathalyzer: 0 Urine Drug Screen - Test Device Lot number: [id number] Expiration date: 05/22/22 - Control Is test valid?: Yes - Results Drug screen NEGATIVE: No Urine drug screen results: THC-Marijuana, MET-Methamphetamine, AMP-Amphetamines, FEN-Fentanyl Inpatient Rehab Admission - Rehab Decision to Admit Inpatient rehab admission?: No
[2020-07-19] MEDS ORDERED: MENTHOL/PHENOL 1 EACH UD MM PRN (19:34)
[2020-07-19] MEDS ORDERED: IBUPROFEN 400 MG TABLET (FP) PO PRN (19:34)
[2020-07-19] MEDS ORDERED: MAGNESIUM HYDROX 2400MG/30ML ORAL SUSPENSION 30 ML CUP PO PRN (19:34)
[2020-07-19] MEDS ORDERED: ONDANSETRON *ODT* 4 MG TABLET SL PRN (19:34)
[2020-07-19] MEDS ORDERED: cloNIDine HCL 0.1 MG TABLET PO PRN (19:34)
[2020-07-19] MEDS ORDERED: NICOTINE POLACRILEX 2 MG GUM BUC PRN (19:34)
[2020-07-19] MEDS ORDERED: BISMUTH SUBSALICYLATE 524 MG/30 ML UD PO PRN (19:34)
[2020-07-19] MEDS ORDERED: MAGNESIUM CITRATE 300 ML BOTTLE PO PRN (19:34)
[2020-07-19] MEDS ORDERED: ACETAMINOPHEN 325 MG TABLET (FP) PO PRN ×2 (19:34)
[2020-07-19] MEDS ORDERED: MAG HYDROX/AL HYDROX/SIMETH 30 ML UNIT-DOSE CUP PO PRN (19:34)
[2020-07-19] MEDS ORDERED: METHADONE HCL 10 MG TABLET (FOR DETOX USE ONLY) PO ONE (20:00)
[2020-07-19] MEDS: METHOCARBAMOL 500 MG TABLET PO PRN (20:43)
[2020-07-19] MEDS ORDERED: QUEtiapine FUMARATE 50 MG TABLET PO PRN (22:00)
[2020-07-19] MEDS: THIAMINE HCL 100 MG TABLET (FP) PO SCH (23:46)
[2020-07-20] MEDS: diazePAM 5 MG TABLET PO PRN ×3 (06:33→22:15)
[2020-07-20] MEDS ORDERED: METHADONE HCL 5 MG TABLET (FOR DETOX USE ONLY) ONE (09:00)
[2020-07-20] MEDS ORDERED: METHADONE HCL 10 MG TABLET (FOR DETOX USE ONLY) ONE (09:01)
[2020-07-20] MEDS ORDERED: METHADONE (DETOX) 20 MG, METHADONE (DETOX) 5 MG PO ONE (10:00)
[2020-07-20] MEDS: NICOTINE 7 MG/24 HOURS TOPICAL PATCH TD SCH (10:19)
[2020-07-20] MEDS: PRENATAL VITAMINS W/ FOLIC ACID TABLET (FP) PO SCH (10:20)
[2020-07-20 10:28] LABS: HEMOGLOBIN 12.9 GM/dL (10.7-15.3); MCH 26.8 pg (25.7-33.7); MCHC 32.1 g/dl (32.0-36.0); MEAN CELL VOLUME 83.4 fl (80-96); MEAN PLT VOLUME 8.1 fl (7.5-11.1); PLATELET COUNT 319 K/MM3 (134-434); RDW 13.9 % (11.6-15.6); WHITE BLOOD COUNT 6.4 K/mm3 (4.0-10.0)
[2020-07-20 10:37] LABS: ALBUMIN 3.5 g/dl (3.4-5.0); BILIRUBIN,TOTAL 1.7 mg/dL (0.2-1); BLOOD UREA NITROGEN 11.6 mg/dL (7-18); CALCIUM 9.4 mg/dL (8.5-10.1); CREATININE 0.8 mg/dL (0.55-1.3); POTASSIUM 4.4 mmol/L (3.5-5.1); TOT PROT 7.3 g/dl (6.4-8.2)
--- NOTE | 2020-07-20 12:12 | PN ---
BHS COWS - Scale Resting Pulse: 2= [place] 101-120 Sweatin= Chills/Flushing Restless Observation: 1= Difficult to Sit Still Pupil Size: 0= Normal to Room Light Bone or Joint Aches: 1= Mild Discomfort Runny Nose/ Eye Tearin= Runny Nose/Eyes GI Upset > 30mins: 0= None Tremor Observation of Outstretched Hands: 2= Slight Tremor Visible Yawning Observation: 2= >3x During Session Anxiety or Irritability: 2=Irritable/Anxious Goose Flesh Skin: 0=Smooth Skin COWS Score: 13 BHS Progress Note (SOAP) Subjective: sweats shakes body aches interrupted sleep restless Objective: 07/20/20 12:12 Vital Signs Temperature 97.3 F L 07/20/20 08:55 Pulse Rate 108 H 07/20/20 08:55 Respiratory Rate 20 07/20/20 08:55 Blood Pressure 138/74 07/20/20 08:55 O2 Sat by Pulse Oximetry (%) 95 07/20/20 08:55 Laboratory Tests 07/19/20 07/20/20 07/20/20 18:48 07:35 07:35 WBC 6.4 RBC 4.80 Hgb 12.9 Hct 40.0 MCV 83.4 MCH 26.8 MCHC 32.1 RDW 13.9 D Plt Count 319 MPV 8.1 Sodium 137 Potassium 4.4 Chloride 104 Carbon Dioxide 26 Anion Gap 7 L BUN 11.6 Creatinine 0.8 Est GFR (CKD-EPI)AfAm 121.29 Est GFR (CKD-EPI)NonAf 104.65 Random Glucose 83 Calcium 9.4 Total Bilirubin 1.7 H AST 15 ALT 18 Alkaline Phosphatase 106 Total Protein 7.3 Albumin 3.5 POC Urine HCG, Qual Negative labs noted aaox3 ambulating no acute distress Assessment: 07/20/20 12:13 withdrawals Plan: continue detox increase fluids valium prn
[2020-07-20] MEDS: METHOCARBAMOL 500 MG TABLET PO PRN ×2 (15:47→22:19)
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
[2020-07-20] MEDS: THIAMINE HCL 100 MG TABLET (FP) PO SCH (22:16)
[2020-07-20] MEDS: QUEtiapine FUMARATE 100 MG TABLET (FP) PO SCH (22:16)
[2020-07-21] MEDS ORDERED: METHADONE HCL 10 MG TABLET (FOR DETOX USE ONLY) PO ONE (10:00)
[2020-07-21] MEDS: diazePAM 5 MG TABLET PO PRN ×2 (10:15→19:58)
[2020-07-21] MEDS: NICOTINE 7 MG/24 HOURS TOPICAL PATCH TD SCH (10:20)
[2020-07-21] MEDS: PRENATAL VITAMINS W/ FOLIC ACID TABLET (FP) PO SCH (10:20)
[2020-07-21] MEDS: NICOTINE 14 MG/24 HOURS TOPICAL PATCH TD SCH (11:54)
--- NOTE | 2020-07-21 18:47 | PN ---
BHS COWS - Scale Resting Pulse: 1= [place] 81-100 Sweatin= Chills/Flushing Restless Observation: 1= Difficult to Sit Still Pupil Size: 0= Normal to Room Light Bone or Joint Aches: 2= Severe Diffuse Aches Runny Nose/ Eye Tearin= None GI Upset > 30mins: 0= None Tremor Observation of Outstretched Hands: 0= None Yawning Observation: 1= 1-2x During Session Anxiety or Irritability: 2=Irritable/Anxious Goose Flesh Skin: 0=Smooth Skin COWS Score: 8 BHS Progress Note (SOAP) Subjective: Anxious, Body Aches, Sweating. Objective: Patient A & O X 3, Observed Ambulating on Detox Unit Unassisted. In No Acute Distress. 07/21/20 18:45 Vital Signs Temperature 97.5 F L 07/21/20 16:50 Pulse Rate 95 H 07/21/20 16:50 Respiratory Rate 16 07/21/20 16:50 Blood Pressure 103/62 07/21/20 16:50 O2 Sat by Pulse Oximetry (%) 100 07/21/20 16:50 Laboratory Tests 07/19/20 07/19/20 07/20/20 18:48 23:30 07:35 WBC 6.4 RBC 4.80 Hgb 12.9 Hct 40.0 MCV 83.4 MCH 26.8 MCHC 32.1 RDW 13.9 D Plt Count 319 MPV 8.1 Sodium Potassium Chloride Carbon Dioxide Anion Gap BUN Creatinine Est GFR (CKD-EPI)AfAm Est GFR (CKD-EPI)NonAf Random Glucose Calcium Total Bilirubin AST ALT Alkaline Phosphatase Total Protein Albumin POC Urine HCG, Qual Negative Syphilis Serology COVID-19 (JAMEEL) Not detected 07/20/20 07/20/20 07:35 07:35 WBC RBC Hgb Hct MCV MCH MCHC RDW Plt Count MPV Sodium 137 Potassium 4.4 Chloride 104 Carbon Dioxide 26 Anion Gap 7 L BUN 11.6 Creatinine 0.8 Est GFR (CKD-EPI)AfAm 121.29 Est GFR (CKD-EPI)NonAf 104.65 Random Glucose 83 Calcium 9.4 Total Bilirubin 1.7 H AST 15 ALT 18 Alkaline Phosphatase 106 Total Protein 7.3 Albumin 3.5 POC Urine HCG, Qual Syphilis Serology Non-reactive COVID-19 (JAMEEL) Lab Results Noted. Assessment: 07/21/20 18:46 WITHDRAWAL SYMPTOMS. HYPERBILIRUBINEMIA. 07/21/20 18:46 Plan: Continue Detox. Increase Daily Oral Water Intake.
[2020-07-21] MEDS ORDERED: diazePAM 5 MG TABLET PO PRN (20:00)
[2020-07-21] MEDS: THIAMINE HCL 100 MG TABLET (FP) PO SCH (22:32)
[2020-07-21] MEDS: QUEtiapine FUMARATE 100 MG TABLET (FP) PO SCH (22:32)
[2020-07-21] MEDS: METHOCARBAMOL 500 MG TABLET PO PRN (22:33)
[2020-07-22] MEDS ORDERED: METHADONE HCL 5 MG TABLET (FOR DETOX USE ONLY) ONE (08:55)
[2020-07-22] MEDS ORDERED: METHADONE HCL 10 MG TABLET (FOR DETOX USE ONLY) ONE (08:55)
[2020-07-22] MEDS ORDERED: METHADONE (DETOX) 10 MG, METHADONE (DETOX) 5 MG PO ONE (10:00)
[2020-07-22] MEDS: PRENATAL VITAMINS W/ FOLIC ACID TABLET (FP) PO SCH (10:08)
[2020-07-22] MEDS: METHOCARBAMOL 500 MG TABLET PO PRN (10:11)
[2020-07-22] MEDS: NICOTINE 14 MG/24 HOURS TOPICAL PATCH TD SCH (10:11)
[2020-07-22] MEDS: diazePAM 5 MG TABLET PO PRN ×2 (10:11→22:33)
--- NOTE | 2020-07-22 17:20 | PN ---
BHS COWS - Scale Resting Pulse: 1= [place] 81-100 Sweatin= Chills/Flushing Restless Observation: 0= Sits Still Pupil Size: 0= Normal to Room Light Bone or Joint Aches: 1= Mild Discomfort Runny Nose/ Eye Tearin= Nasal Congestion GI Upset > 30mins: 1= Stomach Cramp Tremor Observation of Outstretched Hands: 0= None Yawning Observation: 0= None Anxiety or Irritability: 1=Feels Anxious/Irritable Goose Flesh Skin: 0=Smooth Skin COWS Score: 6 BHS Progress Note (SOAP) Subjective: Body aches Objective: 07/22/20 17:18 Last Vital Signs Temp Pulse Resp BP Pulse Ox 98.2 F 81 18 110/64 99 07/22/20 12:51 07/22/20 12:51 07/22/20 12:51 07/22/20 12:51 07/22/20 12:51 Laboratory Tests 07/19/20 07/19/20 07/20/20 18:48 23:30 07:35 WBC 6.4 RBC 4.80 Hgb 12.9 Hct 40.0 MCV 83.4 MCH 26.8 MCHC 32.1 RDW 13.9 D Plt Count 319 MPV 8.1 Sodium Potassium Chloride Carbon Dioxide Anion Gap BUN Creatinine Est GFR (CKD-EPI)AfAm Est GFR (CKD-EPI)NonAf Random Glucose Calcium Total Bilirubin AST ALT Alkaline Phosphatase Total Protein Albumin POC Urine HCG, Qual Negative Syphilis Serology COVID-19 (JAMEEL) Not detected 07/20/20 07/20/20 07:35 07:35 WBC RBC Hgb Hct MCV MCH MCHC RDW Plt Count MPV Sodium 137 Potassium 4.4 Chloride 104 Carbon Dioxide 26 Anion Gap 7 L BUN 11.6 Creatinine 0.8 Est GFR (CKD-EPI)AfAm 121.29 Est GFR (CKD-EPI)NonAf 104.65 Random Glucose 83 Calcium 9.4 Total Bilirubin 1.7 H AST 15 ALT 18 Alkaline Phosphatase 106 Total Protein 7.3 Albumin 3.5 POC Urine HCG, Qual Syphilis Serology Non-reactive COVID-19 (JAMEEL) Labs reviewed: total bilirubin 1.7 (high) Assessment: 07/22/20 17:19 Withdrawal sxs Noted with elevated total bilirubin Plan: Continue detox Encourage PO water intake Elevated total bilirubin: could be r/t withdrawal, repeat serum total bilirubin
[2020-07-22] MEDS: QUEtiapine FUMARATE 100 MG TABLET (FP) PO SCH (22:33)
[2020-07-22] MEDS: THIAMINE HCL 100 MG TABLET (FP) PO SCH (22:33)
[2020-07-23] MEDS ORDERED: METHADONE HCL 10 MG TABLET (FOR DETOX USE ONLY) PO ONE (10:00)
[2020-07-23] MEDS: PRENATAL VITAMINS W/ FOLIC ACID TABLET (FP) PO SCH (10:07)
[2020-07-23] MEDS: NICOTINE 14 MG/24 HOURS TOPICAL PATCH TD SCH (10:07)
[2020-07-23] MEDS: diazePAM 5 MG TABLET PO PRN (10:08)
--- NOTE | 2020-07-23 12:20 | PN ---
BHS COWS - Scale Resting Pulse: 1= [place] 81-100 Sweatin= Chills/Flushing Restless Observation: 1= Difficult to Sit Still Pupil Size: 0= Normal to Room Light Bone or Joint Aches: 0= None Runny Nose/ Eye Tearin= None GI Upset > 30mins: 0= None Tremor Observation of Outstretched Hands: 0= None Yawning Observation: 0= None Anxiety or Irritability: 1=Feels Anxious/Irritable Goose Flesh Skin: 0=Smooth Skin COWS Score: 4 BHS Progress Note (SOAP) Subjective: restless anxiety Objective: 07/23/20 12:19 Vital Signs Temperature 97.1 F L 07/23/20 08:57 Pulse Rate 98 H 07/23/20 08:57 Respiratory Rate 16 07/23/20 08:57 Blood Pressure 120/84 07/23/20 08:57 O2 Sat by Pulse Oximetry (%) 100 07/23/20 11:06 Laboratory Tests 07/19/20 07/19/20 07/20/20 18:48 23:30 07:35 WBC 6.4 RBC 4.80 Hgb 12.9 Hct 40.0 MCV 83.4 MCH 26.8 MCHC 32.1 RDW 13.9 D Plt Count 319 MPV 8.1 Sodium Potassium Chloride Carbon Dioxide Anion Gap BUN Creatinine Est GFR (CKD-EPI)AfAm Est GFR (CKD-EPI)NonAf Random Glucose Calcium Total Bilirubin AST ALT Alkaline Phosphatase Total Protein Albumin POC Urine HCG, Qual Negative Syphilis Serology COVID-19 (JAMEEL) Not detected 07/20/20 07/20/20 07:35 07:35 WBC RBC Hgb Hct MCV MCH MCHC RDW Plt Count MPV Sodium 137 Potassium 4.4 Chloride 104 Carbon Dioxide 26 Anion Gap 7 L BUN 11.6 Creatinine 0.8 Est GFR (CKD-EPI)AfAm 121.29 Est GFR (CKD-EPI)NonAf 104.65 Random Glucose 83 Calcium 9.4 Total Bilirubin 1.7 H AST 15 ALT 18 Alkaline Phosphatase 106 Total Protein 7.3 Albumin 3.5 POC Urine HCG, Qual Syphilis Serology Non-reactive COVID-19 (JAMEEL) aaox3 ambulating no acute distress Assessment: 07/23/20 12:20 withdrawals Plan: continue detox d/c in am
[2020-07-23] MEDS: METHOCARBAMOL 500 MG TABLET PO PRN (17:33)
[2020-07-23] MEDS ORDERED: diazePAM 5 MG TABLET PO ONE (17:59)
[2020-07-23] MEDS: QUEtiapine FUMARATE 100 MG TABLET (FP) PO SCH (22:09)
[2020-07-23] MEDS: THIAMINE HCL 100 MG TABLET (FP) PO SCH (22:09)
[2020-07-24] MEDS ORDERED: METHADONE HCL 5 MG TABLET (FOR DETOX USE ONLY) PO ONE (06:00)
[2020-07-24 08:40] VITALS: BP 102/65; PULSE 79; TEMP 96.8
--- NOTE | 2020-07-24 09:15 | DS ---
[facility] Detox Discharge Summary Admission Date: 07/19/20 Discharge Date: 07/24/20 - History Present History: Opioid Dependence - Physical Exam Results Vital Signs: Vital Signs Temperature 96.8 F L 07/24/20 06:15 Pulse Rate 79 07/24/20 06:15 Respiratory Rate 16 07/24/20 06:15 Blood Pressure 102/65 07/24/20 06:15 O2 Sat by Pulse Oximetry (%) 97 07/24/20 06:15 Pertinent Admission Physical Exam Findings: Vital Signs Temperature 96.8 F L 07/24/20 06:15 Pulse Rate 79 07/24/20 06:15 Respiratory Rate 16 07/24/20 06:15 Blood Pressure 102/65 07/24/20 06:15 O2 Sat by Pulse Oximetry (%) 97 07/24/20 06:15 Laboratory Tests 07/19/20 07/19/20 07/20/20 18:48 23:30 07:35 WBC 6.4 RBC 4.80 Hgb 12.9 Hct 40.0 MCV 83.4 MCH 26.8 MCHC 32.1 RDW 13.9 D Plt Count 319 MPV 8.1 Sodium Potassium Chloride Carbon Dioxide Anion Gap BUN Creatinine Est GFR (CKD-EPI)AfAm Est GFR (CKD-EPI)NonAf Random Glucose Calcium Total Bilirubin AST ALT Alkaline Phosphatase Total Protein Albumin POC Urine HCG, Qual Negative Syphilis Serology COVID-19 (JAMEEL) Not detected 07/20/20 07/20/20 07/23/20 07:35 07:35 08:10 WBC RBC Hgb Hct MCV MCH MCHC RDW Plt Count MPV Sodium 137 Potassium 4.4 Chloride 104 Carbon Dioxide 26 Anion Gap 7 L BUN 11.6 Creatinine 0.8 Est GFR (CKD-EPI)AfAm 121.29 Est GFR (CKD-EPI)NonAf 104.65 Random Glucose 83 Calcium 9.4 Total Bilirubin 1.7 H 1.4 H AST 15 ALT 18 Alkaline Phosphatase 106 Total Protein 7.3 Albumin 3.5 POC Urine HCG, Qual Syphilis Serology Non-reactive COVID-19 (JAMEEL) labs noted aaox3 ambulating no acute distress lungs CTA - Treatment Hospital Course: Detox Protocol Followed, Detoxed Safely, Responded well, Discharged Condition Good, Rehab Referral Accepted - Medication Discharge Medications: Ambulatory Orders NK [No Known Home Medication] 07/19/20 - Diagnosis (1) Hyperbilirubinemia Current Visit: Yes Status: Acute (2) Opioid dependence with withdrawal Current Visit: Yes Status: Chronic (3) Substance-induced sleep disorder Current Visit: Yes Status: Acute (4) Cannabis dependence Current Visit: Yes Status: Chronic (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 (6) Insomnia Current Visit: Yes Status: Chronic Qualifiers: Insomnia type: unspecified Qualified Code(s): G47.00 - Insomnia, unspecified (7) Nicotine dependence Current Visit: Yes Status: Chronic Qualifiers: Nicotine product type: cigarettes Substance use status: uncomplicated Qualified Code(s): F17.210 - Nicotine dependence, cigarettes, uncomplicated (8) Sedative, hypnotic or anxiolytic dependence, uncomplicated Current Visit: Yes Status: Chronic (9) At risk for dehydration due to poor fluid intake Current Visit: No Status: Acute (10) Chlamydia contact, treated Current Visit: No Status: Acute (11) Cocaine dependence Current Visit: No Status: Acute Qualifiers: Substance use status: uncomplicated Qualified Code(s): F14.20 - Cocaine dependence, uncomplicated (12) Dehydration Current Visit: No Status: Acute (13) Drug-induced mood disorder Current Visit: No Status: Acute (14) Drug-induced mood disorder Current Visit: No Status: Acute (15) Drug-induced mood disorder Current Visit: No Status: Acute (16) Fever Current Visit: No Status: Acute Qualifiers: Fever type: unspecified Qualified Code(s): R50.9 - Fever, unspecified (17) Leukocytosis Current Visit: No Status: Acute (18) Opioid dependence, uncomplicated Current Visit: No Status: Acute (19) Sedative, hypnotic or anxiolytic dependence with withdrawal, uncomplicated Current Visit: No Status: Acute (20) Strep pharyngitis Current Visit: No Status: Acute (21) Substance induced mood disorder Current Visit: No Status: Acute (22) Substance-induced sleep disorder Current Visit: No Status: Acute (23) Substance-induced sleep disorder Current Visit: No Status: Acute (24) Urinary tract infection Current Visit: No Status: Acute (25) Vomiting Current Visit: No Status: Acute Qualifiers: Vomiting type: unspecified Vomiting Intractability: non-intractable Nausea presence: with nausea Qualified Code(s): R11.2 - Nausea with vomiting, unspecified (26) Withdrawal syndrome Current Visit: No Status: Acute (27) Alcohol abuse Current Visit: No Status: Chronic (28) Anemia Current Visit: No Status: Chronic Qualifiers: Anemia type: unspecified type Qualified Code(s): D64.9 - Anemia, unspecified (29) Anxiety disorder Current Visit: No Status: Chronic (30) Cocaine dependence Current Visit: No Status: Chronic (31) Depression (emotion) Current Visit: No Status: Chronic Qualifiers: Depression Type: unspecified Qualified Code(s): F32.9 - Major depressive disorder, single episode, unspecified (32) GERD (gastroesophageal reflux disease) Current Visit: No Status: Chronic Qualifiers: Esophagitis presence: without esophagitis Qualified Code(s): K21.9 - Gastro-esophageal reflux disease without esophagitis (33) Mood disorder Current Visit: No Status: Chronic (34) Opiate abuse, episodic Current Visit: No Status: Chronic (35) PTSD (post-traumatic stress disorder) Current Visit: No Status: Suspected (36) Substance induced mood disorder Current Visit: No Status: Suspected (37) Substance-induced anxiety disorder Current Visit: No Status: Suspected
== END 2020-07-24 08:50 | disposition home or self-care (01) | DRG 897 ==
LOC: YASAS 18:22 → Y6N 19:26
PROVIDERS: ADMIT Allergy & Immunology; ATTEND Allergy & Immunology
PROC: HZ2ZZZZ Detoxification Services for Substance Abuse Treatment (ICD-10-PCS; principal; 2020-07-19)
DX: F11.23 Opioid dependence with withdrawal (principal); F13.20 Sedative, hypnotic or anxiolytic dependence, uncomplicated; F19.282 Other psychoactive substance dependence with psychoactive substance-induced sleep disorder; F12.20 Cannabis dependence, uncomplicated; F16.10 Hallucinogen abuse, uncomplicated; F17.210 Nicotine dependence, cigarettes, uncomplicated; E80.6 Other disorders of bilirubin metabolism; G47.00 Insomnia, unspecified
CPT/HCPCS: 36415; 80053; 81025; 82247; 85027; 86780; U0003